=== PATIENT | male | born 1985 | race Caucasian/White ===

== ENCOUNTER 2016-12-12 03:05 | Emergency (ER) | payer BC ==
[2016-12-12 03:10] VITALS: BP 146/76; PULSE 105; RESP 20; TEMP 97.3
[2016-12-12] MEDS ORDERED: AMOXIC-POT CLAV 875-125MG 1 EACH TAB PO STA (03:16)
[2016-12-12] MEDS ORDERED: predniSONE 50 MG TAB PO STA (03:16)
--- NOTE | 2016-12-12 03:17 | ED ---
ENT HPI - General Chief complaint: ENT Stated complaint: VINICIO Time Seen by Provider: 12/12/16 03:10 Source: patient, RN notes reviewed Mode of arrival: ambulatory - History of Present Illness Initial comments: This a 31-year-old male presents emergency Department with chief complaint of chest swollen uvula. Patient states she's had this in the past. He states actually happened a few months ago. Patient states it went away but has returned last 24 hours. Patient denies any difficulty swallowing typically bleeding states it is sore. Patient's had no fever or chills he knows about. He states he has felt hot . Patient denies any headache, dizziness, chest pain , shortness breath, neck pain, nausea vomiting diarrhea constipation. Patient does use tobacco. - Related Data Home Medications Medication Instructions Recorded Confirmed Hydrochlorothiazide 25 mg PO DAILY 07/19/15 07/19/15 [Hydrochlorothiazide] Ibuprofen [Motrin] 200 mg PO DAILY PRN 07/19/15 07/19/15 Previous Rx's Medication Instructions Recorded Albuterol Inhaler [Ventolin Hfa 1 - 2 puff INHALATION Q4-6H PRN #1 07/19/15 Inhaler] inhaler Azithromycin [Zithromax] 250 mg PO DIRECTED #6 tab 07/19/15 predniSONE 50 mg PO DAILY #5 tab 07/19/15 Amoxicillin/Potassium Clav 1 tab PO Q12HR #20 tab 12/12/16 [Augmentin 875-125 Tablet] predniSONE 50 mg PO DAILY #5 tab 12/12/16 Allergies Allergy/AdvReac Type Severity Reaction Status Date / Time No Known Allergies Allergy Verified 07/19/15 20:04 Review of Systems ROS Statement: Those systems with pertinent positive or pertinent negative responses have been documented in the HPI. ROS Other: All systems not noted in ROS Statement are negative. Past Medical History Past Medical History: No Reported History History of Any Multi-Drug Resistant Organisms: None Reported Past Surgical History: No Surgical Hx Reported Past Psychological History: No Psychological Hx Reported Smoking Status: Current every day smoker Past Alcohol Use History: Occasional Past Drug Use History: None Reported General Exam General appearance: alert, in no apparent distress Head exam: Present: atraumatic, normocephalic, normal inspection Eye exam: Present: normal appearance, PERRL, EOMI. Absent: scleral icterus, conjunctival injection, periorbital swelling ENT exam: Present: mucous membranes moist, TM's normal bilaterally, normal external ear exam. Absent: normal oropharynx (There is erythema and swelling of the uvula patient is swallowing secretions well) Neck exam: Present: normal inspection, full ROM. Absent: tenderness, meningismus, lymphadenopathy Respiratory exam: Present: normal lung sounds bilaterally. Absent: respiratory distress, wheezes, rales, rhonchi, stridor Cardiovascular Exam: Present: regular rate, normal rhythm, normal heart sounds. Absent: systolic murmur, diastolic murmur, rubs, gallop, clicks Neurological exam: Present: alert, oriented X3, CN II-XII intact Course Vital Signs 12/12/16 03:08 Temperature 97.3 F L Pulse Rate 105 H Respiratory 20 Rate Blood Pressure 146/76 O2 Sat by Pulse 99 Oximetry Medical Decision Making - Medical Decision Making 31-year-old male present emergency department for swollen uvula. Patient be treated for uvulitis with Augmentin and prednisone. This may be infectious versus allergen. Patient is advised that needs follow-up with ENT secondary to recurrent uvulitis. We discussed that tobacco use can cause cancerous problems in that he needs to have further evaluation. I did chief counsel detailing 3 minutes regarding smoking cessation. Disposition Clinical Impression: Uvulitis Disposition: HOME SELF-CARE Condition: Stable Instructions: Uvulitis (ED) Additional Instructions: Please return to the Emergency Department if symptoms worsen or any other concerns. Prescriptions: Amoxicillin/Potassium Clav [Augmentin 875-125 Tablet] 1 tab PO Q12HR #20 tab predniSONE 50 mg PO DAILY #5 tab Referrals: Kiki Montes MD [Primary Care Provider] - 1-2 days Josse Barth MD [STAFF PHYSICIAN] - 1-2 days Time of Disposition: :17
== END 2016-12-12 03:31 | disposition home or self-care (01) ==
LOC: EC 03:05
DX: K12.2 Cellulitis and abscess of mouth (principal); F17.200 Nicotine dependence, unspecified, uncomplicated; Z79.899 Other long term (current) drug therapy
CPT/HCPCS: 99284; J7512

== ENCOUNTER → 2016-12-27 | Outpatient (CLI) | payer BC ==
[2016-12-27 19:53] LABS: ALT 90 U/L (21-72); AST 75 U/L (17-59); Alkaline Phosphatase 107 U/L (38-126); Anion Gap 11 mmol/L; Blood Urea Nitrogen 15 mg/dL (9-20); Calcium 9.9 mg/dL (8.4-10.2); Carbon Dioxide 24 mmol/L (22-30); Chloride 106 mmol/L (98-107); Glucose 78 mg/dL (74-99); Non-African American GFR(MDRD) >60 (>60 ml/min/1.73 sqM); Potassium 4.2 mmol/L (3.5-5.1); Sodium 141 mmol/L (137-145); Total Bilirubin 0.4 mg/dL (0.2-1.3); Total Protein 7.5 g/dL (6.3-8.2)
== END ==
LOC: MMGSC 15:46
PROVIDERS: ATTEND Family Medicine
DX: Z51.81 Encounter for therapeutic drug level monitoring (principal)
CPT/HCPCS: 36415; 80053

== ENCOUNTER 2017-07-23 19:21 | Emergency (ER) | payer BC ==
[2017-07-23] MEDS ORDERED: SODIUM CHLORIDE 0.9% 1,000 ML IV ONE (19:42)
[2017-07-23 19:53] LABS: Basophils # (A) 0.1 k/uL (0-0.2); Basophils % (A) 1 %; Eosinophils # (A) 0.7 k/uL (0-0.7); Eosinophils % (A) 5 %; HCT 43.5 % (39.0-53.0); HGB 15.1 gm/dL (13.0-17.5); Lymphocytes # (A) 4.6 k/uL (1.0-4.8); Lymphocytes % (A) 31 %; MCH 29.4 pg (25.0-35.0); MCHC 34.6 g/dL (31.0-37.0); Mean Platelet Volume 6.9; Monocytes # (A) 0.6 k/uL (0-1.0); Monocytes % (A) 4 %; Neutrophils # (A) 8.3 k/uL (1.3-7.7); Neutrophils % (A) 56 %; Platelet Count 318 k/uL (150-450); RBC 5.12 m/uL (4.30-5.90); RDW 13.3 % (11.5-15.5); WBC 14.7 k/uL (3.8-10.6)
[2017-07-23 20:05] LABS: ALT 83 U/L (21-72); AST 36 U/L (17-59); Albumin 4.7 g/dL (3.5-5.0); Alkaline Phosphatase 107 U/L (38-126); Anion Gap 15 mmol/L; Blood Urea Nitrogen 17 mg/dL (9-20); Calcium 9.6 mg/dL (8.4-10.2); Carbon Dioxide 26 mmol/L (22-30); Chloride 102 mmol/L (98-107); Glucose 110 mg/dL (74-99); Potassium 3.7 mmol/L (3.5-5.1); Sodium 143 mmol/L (137-145); Total Bilirubin 0.4 mg/dL (0.2-1.3); Total Protein 7.4 g/dL (6.3-8.2)
--- NOTE | 2017-07-23 20:05 | XR ---
EXAMINATION TYPE: XR chest 2V DATE OF EXAM: 07/23/2017 COMPARISON: 07/19/2015 HISTORY: Hypertension TECHNIQUE: Frontal and lateral views of the chest are obtained. FINDINGS: Heart and mediastinum are normal. There is coarsening of interstitial pulmonary markings. There is no pulmonary consolidation. There is no pleural effusion. IMPRESSION: Coarse lung markings and relatively poor inspiration. This is a change compared to old e xam. Normal heart.
[2017-07-23 20:07] LABS: D-Dimer 0.33 mg/L FEU (<0.60); Partial Thromboplastin Time 23.3 sec (22.0-30.0)
[2017-07-23] MEDS ORDERED: LORazepam 1 MG TAB PO STA (20:24)
[2017-07-23 20:33] LABS: Creatine Kinase MB 0.5 ng/mL (0.0-2.4); Troponin I <0.012 ng/mL (0.000-0.034)
[2017-07-23] MEDS ORDERED: amLODIPine 5 MG TAB PO STA (21:10)
[2017-07-23 21:11] VITALS: BP 161/84; PULSE 106; RESP 18
--- NOTE | 2017-07-23 21:16 | ED ---
General Adult HPI - General Chief complaint: Chest Pain Stated complaint: HTN Time Seen by Provider: 07/23/17 19:28 Source: patient Mode of arrival: ambulatory Limitations: no limitations - History of Present Illness Initial comments: This is a 31-year-old male who presents emergency department for hypertension, dizziness, and left arm pain. He states that the symptoms been going on for the last couple of days. He states he's had mostly the lightheadedness and high blood pressure for the last couple of days. The left-sided arm pain started around 5:00 this evening. He states that the arm pain does radiate into her chest occasionally. He states is mostly in his left arm however. He states he does not have any direct chest pain. No shortness of breath. There is no pleuritic nature to the pain. He states that the dizziness feels more like a lightheadedness when he stands up or rolls over. He denies any spinning sensation. He states that he is supposed to be on amlodipine/been Nasser pro- medications however has not been taking this. He states that he did have a reaction to taking the medication a couple of days ago and woke up with throat swelling. He denies any lower extremity edema or swelling. 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 No history of PE or DVT. No other acute complaints. - Related Data Home Medications Medication Instructions Recorded Confirmed Aspirin 325 mg PO DAILY PRN 07/23/17 07/23/17 Allergies Allergy/AdvReac Type Severity Reaction Status Date / Time benazepril [From Lotrel] Allergy Swelling Verified 07/23/17 19:54 Review of Systems ROS Statement: Those systems with pertinent positive or pertinent negative responses have been documented in the HPI. ROS Other: All systems not noted in ROS Statement are negative. Past Medical History Past Medical History: Hypertension History of Any Multi-Drug Resistant Organisms: None Reported Past Surgical History: No Surgical Hx Reported Past Psychological History: No Psychological Hx Reported Smoking Status: Current every day smoker Past Alcohol Use History: Occasional Past Drug Use History: None Reported General Exam - General Exam Comments Initial Comments: Constitutional: Awake alert Appears comfortable Head: Normocephalic atraumatic Eyes: no conjunctival injection No scleral icterus EOMI Neck: No JVD Supple Heart: Tachycardia normal S1-S2 no murmurs Lungs: Clear to auscultation bilaterally No wheezing No rales Abdomen: Soft nondistended nontender Extremities: Non edematous DP pulses intact Radial pulses intact Neuro: A&Ox3 No focal neurologic deficits Psych: Appropriate mood and affect Limitations: no limitations Course Vital Signs 07/23/17 07/23/17 07/23/17 19:22 19:41 20:16 Temperature 98.0 F 99.3 F Pulse Rate 126 H 117 H 120 H Respiratory 18 20 20 Rate Blood Pressure 183/100 175/73 159/71 O2 Sat by Pulse 100 100 99 Oximetry 07/23/17 07/23/17 21:09 21:17 Temperature 98.6 F Pulse Rate 106 H Respiratory 18 Rate Blood Pressure 161/84 O2 Sat by Pulse 98 Oximetry EKG Findings - EKG Comments: EKG Findings:: EKG showing sinus tachycardia with a rate of 114. No abnormal ST 7 changes or T-wave inversions. QTC is 474. Other intervals normal. There may be an incomplete right bundle-branch block present. Medical Decision Making - Medical Decision Making Is a 31-year-old came in for left arm pain, lightheadedness, and hypertension. The patient was monitored in the emergency department and blood pressure came down on its own. The patient had blood work performed that had a negative troponin and d-dimer. I suspect that some of his symptoms may be related to anxiety and given a dose of lorazepam with great improvement in his symptoms. The patient felt much improved after this area I did give him 1 dose of amlodipine. I suspect that he may be having angioedema from the benazepril that he's had this multiple times in the past. At this time going to send the patient home. He has an appointment with his doctor tomorrow. Told to inquire about additional blood pressure medication if required. Can return if he has any worsening symptoms. All questions answered. - Lab Data Result diagrams: 07/23/17 19:40 07/23/17 19:40 Lab Results 07/23/17 07/23/17 07/23/17 Range/Units 19:40 19:40 19:40 WBC 14.7 H (3.8-10.6) k/uL RBC 5.12 (4.30-5.90) m/uL Hgb 15.1 (13.0-17.5) gm/dL Hct 43.5 (39.0-53.0) % MCV 85.0 (80.0-100.0) fL MCH 29.4 (25.0-35.0) pg MCHC 34.6 (31.0-37.0) g/dL RDW 13.3 (11.5-15.5) % Plt Count 318 (150-450) k/uL Neutrophils % 56 % Lymphocytes % 31 % Monocytes % 4 % Eosinophils % 5 % Basophils % 1 % Neutrophils # 8.3 H (1.3-7.7) k/uL Lymphocytes # 4.6 (1.0-4.8) k/uL Monocytes # 0.6 (0-1.0) k/uL Eosinophils # 0.7 (0-0.7) k/uL Basophils # 0.1 (0-0.2) k/uL PT (9.0-12.0) sec INR (<1.2) APTT (22.0-30.0) sec D-Dimer (<0.60) mg/L FEU Sodium 143 (137-145) mmol/L Potassium 3.7 (3.5-5.1) mmol/L Chloride 102 (98-107) mmol/L Carbon Dioxide 26 (22-30) mmol/L Anion Gap 15 mmol/L BUN 17 (9-20) mg/dL Creatinine 0.91 (0.66-1.25) mg/dL Est GFR (CKD-EPI)AfAm >90 (>60 ml/min/1.73 sqM) Est GFR (CKD-EPI)NonAf >90 (>60 ml/min/1.73 sqM) Glucose 110 H (74-99) mg/dL Calcium 9.6 (8.4-10.2) mg/dL Total Bilirubin 0.4 (0.2-1.3) mg/dL AST 36 (17-59) U/L ALT 83 H (21-72) U/L Alkaline Phosphatase 107 (38-126) U/L CK-MB (CK-2) 0.5 (0.0-2.4) ng/mL Troponin I <0.012 (0.000-0.034) ng/mL Total Protein 7.4 (6.3-8.2) g/dL Albumin 4.7 (3.5-5.0) g/dL 07/23/17 Range/Units 19:40 WBC (3.8-10.6) k/uL RBC (4.30-5.90) m/uL Hgb (13.0-17.5) gm/dL Hct (39.0-53.0) % MCV (80.0-100.0) fL MCH (25.0-35.0) pg MCHC (31.0-37.0) g/dL RDW (11.5-15.5) % Plt Count (150-450) k/uL Neutrophils % % Lymphocytes % % Monocytes % % Eosinophils % % Basophils % % Neutrophils # (1.3-7.7) k/uL Lymphocytes # (1.0-4.8) k/uL Monocytes # (0-1.0) k/uL Eosinophils # (0-0.7) k/uL Basophils # (0-0.2) k/uL PT 10.0 (9.0-12.0) sec INR 1.0 (<1.2) APTT 23.3 (22.0-30.0) sec D-Dimer 0.33 (<0.60) mg/L FEU Sodium (137-145) mmol/L Potassium (3.5-5.1) mmol/L Chloride (98-107) mmol/L Carbon Dioxide (22-30) mmol/L Anion Gap mmol/L BUN (9-20) mg/dL Creatinine (0.66-1.25) mg/dL Est GFR (CKD-EPI)AfAm (>60 ml/min/1.73 sqM) Est GFR (CKD-EPI)NonAf (>60 ml/min/1.73 sqM) Glucose (74-99) mg/dL Calcium (8.4-10.2) mg/dL Total Bilirubin (0.2-1.3) mg/dL AST (17-59) U/L ALT (21-72) U/L Alkaline Phosphatase (38-126) U/L CK-MB (CK-2) (0.0-2.4) ng/mL Troponin I (0.000-0.034) ng/mL Total Protein (6.3-8.2) g/dL Albumin (3.5-5.0) g/dL Disposition Clinical Impression: Arm pain, Palpitations Disposition: HOME SELF-CARE Condition: Stable Instructions: Chest Pain (ED), Angioedema (ED) Additional Instructions: Follow up with your primary doctor tomorrow and have BP rechecked. You were given Amlodipine 5mg tonight. I feel that you have angioedema from benazepril and should avoid HERMILA inhibitors. You may require increased dosing or a different medication for better blood pressure control. Come back for any worsening chest pains. Is patient prescribed a controlled substance at d/c from ED?: No Referrals: Kiki Montes MD [Primary Care Provider] - 1-2 days
[2017-07-23 21:17] VITALS: TEMP 98.6
== END 2017-07-23 21:24 | disposition home or self-care (01) ==
LOC: EC 19:21
DX: R00.2 Palpitations (principal); M79.602 Pain in left arm; R42 Dizziness and giddiness; R07.9 Chest pain, unspecified; I10 Essential (primary) hypertension; F17.200 Nicotine dependence, unspecified, uncomplicated; Z88.8 Allergy status to other drugs, medicaments and biological substances
CPT/HCPCS: 36415; 71046; 80053; 82553; 84484; 85025; 85379; 85610; 85730; 93005; 96360; 99285

== ENCOUNTER → 2017-07-24 | Outpatient (CLI) | payer BC ==
[2017-07-24 18:39] LABS: Basophils % (A) 0 %; Eosinophils # (A) 0.6 k/uL (0-0.7); Eosinophils % (A) 6 %; HCT 45.2 % (39.0-53.0); HGB 14.9 gm/dL (13.0-17.5); Lymphocytes % (A) 27 %; MCH 28.4 pg (25.0-35.0); Mean Platelet Volume 7.9; Monocytes # (A) 0.6 k/uL (0-1.0); Monocytes % (A) 5 %; Neutrophils # (A) 6.7 k/uL (1.3-7.7); Neutrophils % (A) 60 %; Platelet Count 315 k/uL (150-450); RBC 5.26 m/uL (4.30-5.90); RDW 13.5 % (11.5-15.5); WBC 11.1 k/uL (3.8-10.6)
== END | disposition home or self-care (01) ==
LOC: MMGSC 12:03
PROVIDERS: ATTEND Family Medicine
DX: R79.9 Abnormal finding of blood chemistry, unspecified (principal)
CPT/HCPCS: 36415; 85025

== ENCOUNTER → 2017-08-16 | Outpatient (CLI) | payer BC ==
--- NOTE | 2017-08-17 07:07 | US ---
EXAMINATION TYPE: US kidneys/renal and bladder DATE OF EXAM: 08/16/2017 COMPARISON: NONE CLINICAL HISTORY: R31.9 hematuria. Hematuria, pt states no known prior renal issues EXAM MEASUREMENTS: Right Kidney: 11.5 x 5.3 x 5.7 cm Left Kidney: 10.9 x 5.6 x 5.0 cm Larger pt body habitus, difficult scan Right Kidney: Visualized portions appeared wnl. No hydronephrosis or nephrolithiasis. Cortical medull justine differentiation is maintained. Left Kidney: Visualized portions appeared wnl No hydronephrosis or nephrolithiasis. Cortical medul fay differentiation is maintained. Bladder: wnl Bilateral Jets seen: No There is no evidence for hydronephrosis at this point in time. No nephrolithiasis is seen. No tariq s are identified. The urinary bladder is anechoic. Bilateral ureteral jets are seen. IMPRESSION: No hydronephrosis or nephrolithiasis. No sonographic evidence of medical renal disease. Urinary bladd er is unremarkable. If there is further clinical concern in the setting of hematuria CT urogram could be performed.
== END | disposition home or self-care (01) ==
LOC: RADUSWWP 16:18
PROVIDERS: ATTEND Family Medicine
DX: R31.9 Hematuria, unspecified (principal)
CPT/HCPCS: 76770

== ENCOUNTER 2018-05-05 12:19 | Emergency (ER) | payer BC ==
[2018-05-05 12:24] VITALS: TEMP 98.4
[2018-05-05] MEDS ORDERED: SODIUM CHLORIDE 0.9% 1,000 ML IV STA (12:44)
[2018-05-05] MEDS ORDERED: SODIUM CHLORIDE 0.9% 500 ML 500 ML IV STA (12:44)
[2018-05-05] MEDS ORDERED: METOPROLOL SUCCINATE (ER) 25 MG TAB.ER.24H PO STA (12:45)
--- NOTE | 2018-05-05 12:50 | ED ---
General Adult HPI - General Chief complaint: Recheck/Abnormal Lab/Rx Stated complaint: High BP Time Seen by Provider: 05/05/18 12:30 Source: patient, RN notes reviewed, old records reviewed Mode of arrival: ambulatory Limitations: no limitations - History of Present Illness Initial comments: 32-year-old male presents for evaluation of hypertension and not feeling well. Patient states he just feels "weird". Denies headache. Denies vision changes. Denies focal numbness or weakness. He does report bilateral foot tingling. He checked his blood pressure at home and it was significantly elevated and he presents to emergency department for evaluation. Patient denies nausea vomiting. Denies fever or chills. Denies cough or dyspnea. He has history of hypertension, has been prescribed both Norvasc and Toprol-XL he has not been taking his medications for the past one month. He states he had heard that Norvasc cause cancer and discontinued this medication without his doctor's noticed. Denies chest pain. Denies lower extremity pain or swelling. Denies abdominal pain. Patient is a current smoker, denies alcohol use. - Related Data Home Medications Medication Instructions Recorded Confirmed Naproxen Sodium [Aleve] 440 mg PO DAILY PRN 05/05/18 05/05/18 amLODIPine [Norvasc] 5 mg PO DAILY 05/05/18 05/05/18 Previous Rx's Medication Instructions Recorded Doxycycline [Vibramycin] 100 mg PO BID #14 cap 05/05/18 Metoprolol Succinate (ER) [Toprol 25 mg PO DAILY #30 tab 05/05/18 Xl] Allergies Allergy/AdvReac Type Severity Reaction Status Date / Time HERMILA Inhibitors Allergy Swelling Verified 05/05/18 12:49 benazepril [From Lotrel] Allergy Swelling Verified 05/05/18 12:49 Review of Systems ROS Statement: Those systems with pertinent positive or pertinent negative responses have been documented in the HPI. ROS Other: All systems not noted in ROS Statement are negative. Past Medical History Past Medical History: Hypertension History of Any Multi-Drug Resistant Organisms: None Reported Past Surgical History: No Surgical Hx Reported Past Psychological History: No Psychological Hx Reported Smoking Status: Current every day smoker Past Alcohol Use History: None Reported Past Drug Use History: None Reported General Exam Limitations: no limitations General appearance: alert, in no apparent distress Head exam: Present: atraumatic, normocephalic Eye exam: Present: normal appearance, PERRL, EOMI ENT exam: Present: mucous membranes dry Neck exam: Present: normal inspection. Absent: tenderness, meningismus Respiratory exam: Present: normal lung sounds bilaterally. Absent: respiratory distress, wheezes Cardiovascular Exam: Present: normal rhythm, tachycardia GI/Abdominal exam: Present: soft. Absent: distended, tenderness, guarding Extremities exam: Present: normal inspection, normal capillary refill. Absent: pedal edema Neurological exam: Present: alert, oriented X3, CN II-XII intact, normal gait. Absent: motor sensory deficit Psychiatric exam: Present: normal affect, normal mood Skin exam: Present: warm, dry, intact. Absent: cyanosis, diaphoretic Course Vital Signs 05/05/18 05/05/18 05/05/18 12:21 13:22 14:00 Temperature 98.4 F Pulse Rate 121 H 116 H 104 H Respiratory 20 18 Rate Blood Pressure 194/75 153/110 147/92 O2 Sat by Pulse 98 98 Oximetry - Reevaluation(s) Reevaluation #1: 05/05/18 14:35 Patient reevaluated, resting comfortably, vital signs significantly improved, patient feeling normal EKG Findings - EKG Comments: EKG Findings:: EKG: Sinus tachycardia, nonspecific conduction delay, rate of 112 , NH interval 148, QRS duration 118, QTC 477, EKG unchanged compared to previous in July 2017. Medical Decision Making - Medical Decision Making 32-year-old male presenting for evaluation of hypertension, not taking prescribed antihypertensive medications. Patient denies headache, denies focal numbness or weakness, denies chest pain or abdominal pain. I did reevaluate the patient after chest x-ray indicating concern for right infrahilar infiltrate. Patient does endorse intermittent productive cough over the past several weeks. No fever or dyspnea. Patient has normal white blood cell count , stable hemoglobin, d-dimer is negative, normal electrolytes. Troponin negative. Patient will be restarted on his previously prescribed antihypertensive medications, prescribed antibiotics to cover community acquired pneumonia. - Lab Data Result diagrams: 05/05/18 13:08 05/05/18 13:08 Lab Results 05/05/18 05/05/18 05/05/18 Range/Units 13:08 13:08 13:08 WBC 9.6 (3.8-10.6) k/uL RBC 5.53 (4.30-5.90) m/uL Hgb 15.7 (13.0-17.5) gm/dL Hct 45.8 (39.0-53.0) % MCV 82.9 (80.0-100.0) fL MCH 28.3 (25.0-35.0) pg MCHC 34.2 (31.0-37.0) g/dL RDW 13.5 (11.5-15.5) % Plt Count 280 (150-450) k/uL Neutrophils % 62 % Lymphocytes % 26 % Monocytes % 6 % Eosinophils % 4 % Basophils % 1 % Neutrophils # 6.0 (1.3-7.7) k/uL Lymphocytes # 2.5 (1.0-4.8) k/uL Monocytes # 0.6 (0-1.0) k/uL Eosinophils # 0.3 (0-0.7) k/uL Basophils # 0.1 (0-0.2) k/uL PT (9.0-12.0) sec INR (<1.2) APTT (22.0-30.0) sec D-Dimer (<0.60) mg/L FEU Sodium 136 L (137-145) mmol/L Potassium 4.2 (3.5-5.1) mmol/L Chloride 103 (98-107) mmol/L Carbon Dioxide 25 (22-30) mmol/L Anion Gap 8 mmol/L BUN 17 (9-20) mg/dL Creatinine 0.88 (0.66-1.25) mg/dL Est GFR (CKD-EPI)AfAm >90 (>60 ml/min/1.73 sqM) Est GFR (CKD-EPI)NonAf >90 (>60 ml/min/1.73 sqM) Glucose 102 H (74-99) mg/dL Calcium 9.5 (8.4-10.2) mg/dL Magnesium 1.7 (1.6-2.3) mg/dL Total Bilirubin 0.5 (0.2-1.3) mg/dL AST 40 (17-59) U/L ALT 69 (21-72) U/L Alkaline Phosphatase 118 (38-126) U/L Total Creatine Kinase 131 (55-170) U/L CK-MB (CK-2) 0.5 (0.0-2.4) ng/mL CK-MB (CK-2) Rel Index 0.4 Troponin I <0.012 (0.000-0.034) ng/mL Total Protein 7.4 (6.3-8.2) g/dL Albumin 4.4 (3.5-5.0) g/dL 05/05/18 Range/Units 13:08 WBC (3.8-10.6) k/uL RBC (4.30-5.90) m/uL Hgb (13.0-17.5) gm/dL Hct (39.0-53.0) % MCV (80.0-100.0) fL MCH (25.0-35.0) pg MCHC (31.0-37.0) g/dL RDW (11.5-15.5) % Plt Count (150-450) k/uL Neutrophils % % Lymphocytes % % Monocytes % % Eosinophils % % Basophils % % Neutrophils # (1.3-7.7) k/uL Lymphocytes # (1.0-4.8) k/uL Monocytes # (0-1.0) k/uL Eosinophils # (0-0.7) k/uL Basophils # (0-0.2) k/uL PT 10.5 (9.0-12.0) sec INR 1.0 (<1.2) APTT 22.7 (22.0-30.0) sec D-Dimer 0.27 (<0.60) mg/L FEU Sodium (137-145) mmol/L Potassium (3.5-5.1) mmol/L Chloride (98-107) mmol/L Carbon Dioxide (22-30) mmol/L Anion Gap mmol/L BUN (9-20) mg/dL Creatinine (0.66-1.25) mg/dL Est GFR (CKD-EPI)AfAm (>60 ml/min/1.73 sqM) Est GFR (CKD-EPI)NonAf (>60 ml/min/1.73 sqM) Glucose (74-99) mg/dL Calcium (8.4-10.2) mg/dL Magnesium (1.6-2.3) mg/dL Total Bilirubin (0.2-1.3) mg/dL AST (17-59) U/L ALT (21-72) U/L Alkaline Phosphatase (38-126) U/L Total Creatine Kinase (55-170) U/L CK-MB (CK-2) (0.0-2.4) ng/mL CK-MB (CK-2) Rel Index Troponin I (0.000-0.034) ng/mL Total Protein (6.3-8.2) g/dL Albumin (3.5-5.0) g/dL Disposition Clinical Impression: Hypertension, Pneumonia Disposition: HOME SELF-CARE Condition: Good Instructions (If sedation given, give patient instructions): Pneumonia (ED), Hypertension (ED) Prescriptions: Doxycycline [Vibramycin] 100 mg PO BID #14 cap Metoprolol Succinate (ER) [Toprol Xl] 25 mg PO DAILY #30 tab Is patient prescribed a controlled substance at d/c from ED?: No Referrals: Kiki Montes MD [Primary Care Provider] - 1-2 days Time of Disposition: 14:40
[2018-05-05 13:23] VITALS: RESP 18
--- NOTE | 2018-05-05 13:40 | XR ---
EXAMINATION TYPE: XR chest 2V DATE OF EXAM: 05/05/2018 COMPARISON: 07/23/2017 HISTORY: Chest pain TECHNIQUE: Frontal and lateral views of the chest are obtained. FINDINGS: Increased density right infrahilar region may reflect developing infiltrate. Correlate clinically. No evidence for pneumothorax. No pleural effusion. The cardiac silhouette size is within normal limits. The osseous structures are grossly intact. IMPRESSION: 1. Increased density right infrahilar region may reflect developing infiltrate. Correlate clinically .
[2018-05-05 13:45] LABS: Basophils # (A) 0.1 k/uL (0-0.2); Basophils % (A) 1 %; Eosinophils # (A) 0.3 k/uL (0-0.7); Eosinophils % (A) 4 %; HCT 45.8 % (39.0-53.0); HGB 15.7 gm/dL (13.0-17.5); Lymphocytes # (A) 2.5 k/uL (1.0-4.8); Lymphocytes % (A) 26 %; MCH 28.3 pg (25.0-35.0); MCHC 34.2 g/dL (31.0-37.0); MCV 82.9 fL (80.0-100.0); Mean Platelet Volume 6.5; Monocytes # (A) 0.6 k/uL (0-1.0); Monocytes % (A) 6 %; Neutrophils % (A) 62 %; Platelet Count 280 k/uL (150-450); RBC 5.53 m/uL (4.30-5.90); RDW 13.5 % (11.5-15.5); WBC 9.6 k/uL (3.8-10.6)
[2018-05-05 13:50] LABS: ALT 69 U/L (21-72); AST 40 U/L (17-59); Albumin 4.4 g/dL (3.5-5.0); Alkaline Phosphatase 118 U/L (38-126); Anion Gap 8 mmol/L; Blood Urea Nitrogen 17 mg/dL (9-20); Calcium 9.5 mg/dL (8.4-10.2); Carbon Dioxide 25 mmol/L (22-30); Chloride 103 mmol/L (98-107); Glucose 102 mg/dL (74-99); Magnesium 1.7 mg/dL (1.6-2.3); Potassium 4.2 mmol/L (3.5-5.1); Sodium 136 mmol/L (137-145); Total Bilirubin 0.5 mg/dL (0.2-1.3); Total Protein 7.4 g/dL (6.3-8.2)
[2018-05-05 13:57] LABS: D-Dimer 0.27 mg/L FEU (<0.60); Partial Thromboplastin Time 22.7 sec (22.0-30.0); Prothrombin Time 10.5 sec (9.0-12.0)
[2018-05-05 14:01] LABS: Creatine Kinase 131 U/L (55-170)
[2018-05-05 14:15] LABS: Creatine Kinase MB 0.5 ng/mL (0.0-2.4); Troponin I <0.012 ng/mL (0.000-0.034)
[2018-05-05 14:52] VITALS: BP 132/89; PULSE 100
== END 2018-05-05 14:49 | disposition home or self-care (01) ==
LOC: EC 12:19
DX: I10 Essential (primary) hypertension (principal); J18.9 Pneumonia, unspecified organism; R00.0 Tachycardia, unspecified; R20.2 Paresthesia of skin; F17.200 Nicotine dependence, unspecified, uncomplicated; Z88.8 Allergy status to other drugs, medicaments and biological substances; Z79.899 Other long term (current) drug therapy
CPT/HCPCS: 36415; 71046; 80053; 82550; 82553; 83735; 84484; 85025; 85379; 85610; 85730; 93005; 99284

== ENCOUNTER 2018-05-05 18:23 | Emergency (ER) | payer BC ==
[2018-05-05] MEDS ORDERED: SODIUM CHLORIDE 0.9% 500 ML 500 ML IV ONE ×2 (18:59→19:47)
[2018-05-05 19:27] LABS: Basophils # (A) 0.1 k/uL (0-0.2); Basophils % (A) 1 %; Eosinophils # (A) 0.3 k/uL (0-0.7); Eosinophils % (A) 3 %; HCT 44.9 % (39.0-53.0); Lymphocytes # (A) 2.4 k/uL (1.0-4.8); Lymphocytes % (A) 20 %; MCH 28.5 pg (25.0-35.0); MCHC 33.4 g/dL (31.0-37.0); MCV 85.2 fL (80.0-100.0); Monocytes # (A) 0.6 k/uL (0-1.0); Monocytes % (A) 5 %; Neutrophils # (A) 8.3 k/uL (1.3-7.7); Neutrophils % (A) 70 %; Platelet Count 273 k/uL (150-450); RBC 5.27 m/uL (4.30-5.90); RDW 13.5 % (11.5-15.5); WBC 11.8 k/uL (3.8-10.6)
[2018-05-05 19:38] LABS: ALT 64 U/L (21-72); AST 39 U/L (17-59); Albumin 4.3 g/dL (3.5-5.0); Alkaline Phosphatase 99 U/L (38-126); Anion Gap 9 mmol/L; Blood Urea Nitrogen 16 mg/dL (9-20); Calcium 9.7 mg/dL (8.4-10.2); Carbon Dioxide 24 mmol/L (22-30); Chloride 104 mmol/L (98-107); Glucose 167 mg/dL (74-99); Magnesium 1.8 mg/dL (1.6-2.3); Potassium 4.3 mmol/L (3.5-5.1); Sodium 137 mmol/L (137-145); Total Bilirubin 0.4 mg/dL (0.2-1.3); Total Protein 7.2 g/dL (6.3-8.2)
[2018-05-05 19:43] LABS: Creatine Kinase 125 U/L (55-170)
[2018-05-05 19:44] LABS: Partial Thromboplastin Time 23.1 sec (22.0-30.0); Prothrombin Time 10.5 sec (9.0-12.0)
[2018-05-05] MEDS ORDERED: amLODIPine 5 MG TAB PO STA (19:47)
--- NOTE | 2018-05-05 19:52 | CT ---
EXAMINATION TYPE: CT brain wo con DATE OF EXAM: 05/05/2018 COMPARISON: None HISTORY: hypertensive CT DLP: 1105.4 mGycm. Automated Exposure Control for Dose Reduction was Utilized. TECHNIQUE: CT scan of the head is performed without contrast. FINDINGS: Ventricles of normal size. There is no mass effect nor midline shift. There is no sign of i ntracranial hemorrhage. Calvarium is intact. There is mucosal thickening in the right maxillary sinus . IMPRESSION: Small mucus retention cyst right maxillary sinus. Otherwise negative exam.
--- NOTE | 2018-05-05 19:54 | ED ---
General Adult HPI - General Chief complaint: Recheck/Abnormal Lab/Rx Stated complaint: Hypertensive Time Seen by Provider: 05/05/18 18:34 Source: patient, RN notes reviewed, old records reviewed Mode of arrival: ambulatory Limitations: no limitations - History of Present Illness Initial comments: 32-year-old male history of hypertension presents for reevaluation of hypertension, tachycardia. Patient is presenting for her second ER visit today for evaluation. Does report interval mild headache. He took Toprol-XL in the emergency Department on previous visit, no interval antihypertensive medications. Patient states he felt flushed at home, took his blood pressure, noted to be elevated as well as elevated heart rate. Denies chest pain. Denies focal numbness or weakness. Denies abdominal pain. Denies nausea vomiting or diarrhea. - Related Data Home Medications Medication Instructions Recorded Confirmed Naproxen Sodium [Aleve] 440 mg PO DAILY PRN 05/05/18 05/05/18 amLODIPine [Norvasc] 5 mg PO DAILY 05/05/18 05/05/18 Previous Rx's Medication Instructions Recorded Doxycycline [Vibramycin] 100 mg PO BID #14 cap 05/05/18 Metoprolol Succinate (ER) [Toprol 25 mg PO DAILY #30 tab 05/05/18 Xl] Allergies Allergy/AdvReac Type Severity Reaction Status Date / Time HERMILA Inhibitors Allergy Swelling Verified 05/05/18 19:29 benazepril [From Lotrel] Allergy Swelling Verified 05/05/18 19:29 Review of Systems ROS Statement: Those systems with pertinent positive or pertinent negative responses have been documented in the HPI. ROS Other: All systems not noted in ROS Statement are negative. Past Medical History Past Medical History: Hypertension History of Any Multi-Drug Resistant Organisms: None Reported Past Surgical History: No Surgical Hx Reported Past Psychological History: No Psychological Hx Reported Smoking Status: Current every day smoker Past Alcohol Use History: None Reported Past Drug Use History: None Reported General Exam Limitations: no limitations General appearance: alert, in no apparent distress Head exam: Present: atraumatic, normocephalic Eye exam: Present: normal appearance, PERRL, EOMI ENT exam: Present: normal exam Neck exam: Present: normal inspection. Absent: tenderness, meningismus Respiratory exam: Present: normal lung sounds bilaterally. Absent: respiratory distress, wheezes Cardiovascular Exam: Present: normal rhythm, tachycardia GI/Abdominal exam: Present: soft. Absent: distended, tenderness, guarding Extremities exam: Present: normal inspection. Absent: pedal edema, calf tenderness Neurological exam: Present: alert, oriented X3, CN II-XII intact. Absent: motor sensory deficit Psychiatric exam: Present: normal affect, normal mood Skin exam: Present: warm, dry, intact. Absent: diaphoretic Course Vital Signs 05/05/18 05/05/18 05/05/18 18:29 19:00 19:06 Temperature 98.5 F Pulse Rate 125 H 107 H Pulse Rate [ 110 H [employer] ] Respiratory 18 20 Rate Blood Pressure 175/74 163/84 O2 Sat by Pulse 100 96 Oximetry 05/05/18 05/05/18 19:55 20:46 Temperature Pulse Rate 106 H 104 H Pulse Rate [ [employer] ] Respiratory 16 20 Rate Blood Pressure 151/86 140/84 O2 Sat by Pulse 96 98 Oximetry EKG Findings - EKG Comments: EKG Findings:: EKG: Sinus tachycardia incomplete right bundle branch block, rate of 110, MT interval 170, QRS duration 116, QTC 484 Medical Decision Making - Medical Decision Making Patient reevaluated for hypertension. Other than tachycardia and hypotension, patient is well-appearing, nonfocal neurologic exam, patient has repeat CBC, repeat CMP, troponin all within normal limits, TSH is obtained, which is 3.[address] is normal[address] Head CT is obtained which is negative for intracranial hemorrhage, mass effect, no acute findings. Patient's vital signs improved with Norvasc which is his home medication and IV hydration. He will continue hydration at home. He is instructed on weight loss, he is instructed to abstain from tobacco use. Patient does admit his been 2 deaths in the family over the past week and he may have some degree of anxiety. This may be contributing to his symptoms. He will follow-up with his primary care physician. - Lab Data Result diagrams: 05/05/18 19:00 05/05/18 19:00 Lab Results 05/05/18 05/05/18 05/05/18 Range/Units 19:00 19:00 19:00 WBC 11.8 H (3.8-10.6) k/uL RBC 5.27 (4.30-5.90) m/uL Hgb 15.0 (13.0-17.5) gm/dL Hct 44.9 (39.0-53.0) % MCV 85.2 (80.0-100.0) fL MCH 28.5 (25.0-35.0) pg MCHC 33.4 (31.0-37.0) g/dL RDW 13.5 (11.5-15.5) % Plt Count 273 (150-450) k/uL Neutrophils % 70 % Lymphocytes % 20 % Monocytes % 5 % Eosinophils % 3 % Basophils % 1 % Neutrophils # 8.3 H (1.3-7.7) k/uL Lymphocytes # 2.4 (1.0-4.8) k/uL Monocytes # 0.6 (0-1.0) k/uL Eosinophils # 0.3 (0-0.7) k/uL Basophils # 0.1 (0-0.2) k/uL PT (9.0-12.0) sec INR (<1.2) APTT (22.0-30.0) sec Sodium 137 (137-145) mmol/L Potassium 4.3 (3.5-5.1) mmol/L Chloride 104 (98-107) mmol/L Carbon Dioxide 24 (22-30) mmol/L Anion Gap 9 mmol/L BUN 16 (9-20) mg/dL Creatinine 0.83 (0.66-1.25) mg/dL Est GFR (CKD-EPI)AfAm >90 (>60 ml/min/1.73 sqM) Est GFR (CKD-EPI)NonAf >90 (>60 ml/min/1.73 sqM) Glucose 167 H (74-99) mg/dL Calcium 9.7 (8.4-10.2) mg/dL Magnesium 1.8 (1.6-2.3) mg/dL Total Bilirubin 0.4 (0.2-1.3) mg/dL AST 39 (17-59) U/L ALT 64 (21-72) U/L Alkaline Phosphatase 99 (38-126) U/L Total Creatine Kinase 125 (55-170) U/L CK-MB (CK-2) 0.4 (0.0-2.4) ng/mL CK-MB (CK-2) Rel Index 0.3 Troponin I <0.012 (0.000-0.034) ng/mL NT-Pro-B Natriuret Pep pg/mL Total Protein 7.2 (6.3-8.2) g/dL Albumin 4.3 (3.5-5.0) g/dL TSH 3.210 (0.465-4.680) mIU/L 05/05/18 05/05/18 Range/Units 19:00 19:00 WBC (3.8-10.6) k/uL RBC (4.30-5.90) m/uL Hgb (13.0-17.5) gm/dL Hct (39.0-53.0) % MCV (80.0-100.0) fL MCH (25.0-35.0) pg MCHC (31.0-37.0) g/dL RDW (11.5-15.5) % Plt Count (150-450) k/uL Neutrophils % % Lymphocytes % % Monocytes % % Eosinophils % % Basophils % % Neutrophils # (1.3-7.7) k/uL Lymphocytes # (1.0-4.8) k/uL Monocytes # (0-1.0) k/uL Eosinophils # (0-0.7) k/uL Basophils # (0-0.2) k/uL PT 10.5 (9.0-12.0) sec INR 1.0 (<1.2) APTT 23.1 (22.0-30.0) sec Sodium (137-145) mmol/L Potassium (3.5-5.1) mmol/L Chloride (98-107) mmol/L Carbon Dioxide (22-30) mmol/L Anion Gap mmol/L BUN (9-20) mg/dL Creatinine (0.66-1.25) mg/dL Est GFR (CKD-EPI)AfAm (>60 ml/min/1.73 sqM) Est GFR (CKD-EPI)NonAf (>60 ml/min/1.73 sqM) Glucose (74-99) mg/dL Calcium (8.4-10.2) mg/dL Magnesium (1.6-2.3) mg/dL Total Bilirubin (0.2-1.3) mg/dL AST (17-59) U/L ALT (21-72) U/L Alkaline Phosphatase (38-126) U/L Total Creatine Kinase (55-170) U/L CK-MB (CK-2) (0.0-2.4) ng/mL CK-MB (CK-2) Rel Index Troponin I (0.000-0.034) ng/mL NT-Pro-B Natriuret Pep 17 pg/mL Total Protein (6.3-8.2) g/dL Albumin (3.5-5.0) g/dL TSH (0.465-4.680) mIU/L Disposition Clinical Impression: Hypertension Disposition: HOME SELF-CARE Condition: Fair Instructions (If sedation given, give patient instructions): Hypertension (ED) Is patient prescribed a controlled substance at d/c from ED?: No Referrals: Kiki Montes MD [Primary Care Provider] - 1-2 days Time of Disposition: 20:55
[2018-05-05 19:56] LABS: Creatine Kinase MB 0.4 ng/mL (0.0-2.4); Troponin I <0.012 ng/mL (0.000-0.034)
[2018-05-05 20:51] VITALS: BP 140/84; PULSE 104; RESP 20
[2018-05-05 21:22] VITALS: TEMP 98.6
== END 2018-05-05 21:15 | disposition home or self-care (01) ==
LOC: EC 18:23
DX: I10 Essential (primary) hypertension (principal); R51 Headache; R00.0 Tachycardia, unspecified; F17.200 Nicotine dependence, unspecified, uncomplicated; Z79.899 Other long term (current) drug therapy; Z88.8 Allergy status to other drugs, medicaments and biological substances
CPT/HCPCS: 36415; 70450; 80053; 82550; 82553; 83735; 83880; 84443; 84484; 85025; 85610; 85730; 93005; 96360; 99284

== ENCOUNTER 2018-05-08 20:49 | Emergency (ER) | payer BC ==
[2018-05-08] MEDS ORDERED: ALPRAZolam 1 MG TAB PO STA (21:45)
[2018-05-08] MEDS ORDERED: DEXAMETHASONE SOD PHOSPHATE 4 MG/ML 1 ML VIAL IV STA (21:46)
[2018-05-08] MEDS ORDERED: DOXYCYCLINE 100 MG CAP PO STA (21:46)
[2018-05-08 22:03] LABS: Basophils # (A) 0.1 k/uL (0-0.2); Basophils % (A) 1 %; Eosinophils # (A) 0.3 k/uL (0-0.7); Eosinophils % (A) 2 %; HCT 48.3 % (39.0-53.0); HGB 15.9 gm/dL (13.0-17.5); Lymphocytes # (A) 2.4 k/uL (1.0-4.8); Lymphocytes % (A) 20 %; MCH 28.2 pg (25.0-35.0); MCHC 32.9 g/dL (31.0-37.0); MCV 85.5 fL (80.0-100.0); Mean Platelet Volume 7.1; Monocytes # (A) 0.7 k/uL (0-1.0); Monocytes % (A) 6 %; Neutrophils # (A) 8.6 k/uL (1.3-7.7); Neutrophils % (A) 70 %; Platelet Count 285 k/uL (150-450); RBC 5.65 m/uL (4.30-5.90); RDW 13.3 % (11.5-15.5); WBC 12.3 k/uL (3.8-10.6)
--- NOTE | 2018-05-08 22:05 | XR ---
EXAMINATION TYPE: XR chest 2V DATE OF EXAM: 05/08/2018 COMPARISON: 05/05/2018 HISTORY: Hypertension. Chest pain TECHNIQUE: Frontal and lateral views of the chest are obtained. FINDINGS: Heart and mediastinum are normal. Lungs are clear. Diaphragm is normal. Bony thorax appear s normal. IMPRESSION: Normal chest. There is improved inspiration compared to old exam.
[2018-05-08 22:14] VITALS: RESP 16; TEMP 99.1
[2018-05-08 22:16] LABS: Appearance,Urine Clear (Clear); Bilirubin,Urine Negative (Negative); Blood,Urine Trace (Negative); Color,Urine Colorless; Glucose,Urine (UA) Negative (Negative); Ketones,Urine Negative (Negative); Leukocyte Esterase,Urine Negative (Negative); Nitrite,Urine Negative (Negative); PH, Urine 6.5 (5.0-8.0); Protein,Urine Negative (Negative); RBC,Urine <1 /hpf (0-5); Urobilinogen,Urine <2.0 mg/dL (<2.0)
[2018-05-08 22:19] LABS: ALT 78 U/L (21-72); AST 36 U/L (17-59); Albumin 4.8 g/dL (3.5-5.0); Alkaline Phosphatase 108 U/L (38-126); Anion Gap 11 mmol/L; Blood Urea Nitrogen 20 mg/dL (9-20); Calcium 9.9 mg/dL (8.4-10.2); Carbon Dioxide 24 mmol/L (22-30); Chloride 102 mmol/L (98-107); Glucose 107 mg/dL (74-99); Potassium 4.3 mmol/L (3.5-5.1); Sodium 137 mmol/L (137-145); Total Bilirubin 0.7 mg/dL (0.2-1.3); Total Protein 8.2 g/dL (6.3-8.2)
--- NOTE | 2018-05-08 22:30 | ED ---
Recheck HPI - General Source: patient Mode of arrival: ambulatory Limitations: no limitations <Nataliya Guaman - Last Filed: 05/08/18 23:23> <Milady Escalona - Last Filed: 05/09/18 01:08> - General Chief Complaint: Recheck/Abnormal Lab/Rx Stated Complaint: revisit, needs blood pressure checked Time Seen by Provider: 05/08/18 21:28 - History of Present Illness Initial Comments: 32yo male with PMH of HTN presenting for elevated BP readings today. Pt states he has measured elevated BP readings all day today, he states he took his medication at 3AM, then he took another dose at 8PM. Pt states that he was did notice today some fullness feeling in his head and was worried this was associated with his elevation of BP. Pt states it is not a headache, just a slight pressure. Pt states he had a negative CT of his head Sunday when he presented for similar symptoms. pt states the feeling hasnt really subsided. Patient denies any nausea, vomiting, chest pain, dyspnea, dyspnea on exertion, abdominal pain, oliguria, speech changes, weakness, parathesias, loss of sensation/numbness, fever, chills, neck stiffness, vision changes, diplopia, back pain, neck pain or any other associated sympmtoms. Upon arrival pt appears well. VS reveal elevated BP. (Nataliya Guaman) - Related Data Home Medications Medication Instructions Recorded Confirmed Naproxen Sodium [Aleve] 440 mg PO DAILY PRN 05/05/18 05/08/18 amLODIPine [Norvasc] 5 mg PO DAILY 05/05/18 05/08/18 Previous Rx's Medication Instructions Recorded Doxycycline [Vibramycin] 100 mg PO BID #14 cap 05/05/18 Metoprolol Succinate (ER) [Toprol 25 mg PO DAILY #30 tab 05/05/18 Xl] Allergies Allergy/AdvReac Type Severity Reaction Status Date / Time HERMILA Inhibitors Allergy Swelling Verified 05/08/18 21:23 benazepril [From Lotrel] Allergy Swelling Verified 05/08/18 21:23 Review of Systems ROS Other: All systems not noted in ROS Statement are negative. <Nataliya Guaman - Last Filed: 05/08/18 23:23> ROS Other: All systems not noted in ROS Statement are negative. <Milady Escalona P - Last Filed: 05/09/18 01:08> ROS Statement: Those systems with pertinent positive or pertinent negative responses have been documented in the HPI. Past Medical History Past Medical History: Hypertension History of Any Multi-Drug Resistant Organisms: None Reported Past Surgical History: No Surgical Hx Reported Past Psychological History: No Psychological Hx Reported Smoking Status: Current every day smoker Past Alcohol Use History: None Reported Past Drug Use History: None Reported <Nataliya Guaman L - Last Filed: 05/08/18 23:23> General Exam Limitations: no limitations <Nataliya Guaman L - Last Filed: 05/08/18 23:23> <Milady Escalona P - Last Filed: 05/09/18 01:08> - General Exam Comments Initial Comments: General: The patient is awake and alert, in no distress, and does not appear acutely ill. Eye: =3 mm pupils are equal, round and reactive to light, extra-ocular movements are intact. No nystagmus. There is normal conjunctiva bilaterally. No signs of icterus. Ears, nose, mouth and throat: There are moist mucous membranes and no oral lesions. Neck: The neck is supple, there is no tenderness or JVD. Cardiovascular: There is a regular rate and rhythm. No murmur, rub or gallop is appreciated. Respiratory: Lungs are clear to auscultation, respirations are non-labored, breath sounds are equal. No wheezes, stridor, rales, or rhonchi. Gastrointestinal: Soft, non-distended, non-tender abdomen without masses or organomegaly noted. There is no rebound or guarding present. No CVA tenderness. Bowel sounds are unremarkable. Musculoskeletal: Normal ROM, no tenderness. Strength 5/5. Sensation intact. Pulses equal bilaterally 2+. Neurological: A&O x 3. CN II-XII intact, memory intact to immediately, intermediate and termite technician recall. Able to follow simple verbal. Able to name a common object (water bottle). High quality, labial (pa) and lingual (la) speech. Low quality posterior pharynx/larynx (ga) voice sounds. Able to express general knowledge (days in a week). No hemineglect or inattention noted. Finger agnosia (-) and spatially oriented (identified L index finger touched R shoulder with L index finger). . Light touch sensation present over the face, chest, abdomen, back, UE bilaterally, and LE bilaterally. Able to localize point during point localization b/l and extinction. No visible bulk atrophy, hypertrophy, fasciculations, or myoclonus of the UE or LE b/l. Full PROM in UE and LE b/l. Bilateral muscle strength 5/5 for the following muscles: deltoid, biceps, triceps, brachioradialis, wrist extensors/flexor, hip flexor, hip abductors/adductors, hamstrings, quadriceps, feet dorsiflexors/plantar flexors. Finger to nose, finger to the examiners finger, and heel to bazan coordinated and accurate b/l. Coordinated and even demonstration of hand flip, finger to thumb, and toe tap b/l. Gait is coordinated and even in stride with tandem, toe and heel walk. Maintains balance with monopedal stance. (-) Romberg. (-) pronator drift. No nuchal rigidity. (-) Brudzinskis and Kernig signs. Skin: Skin is warm and dry and no rashes or lesions are noted. Psychiatric: Cooperative, appropriate mood & affect, normal judgment. (Nataliya Guaman) Vital Signs 05/08/18 05/08/18 05/08/18 21:03 22:13 23:07 Temperature 99.4 F 99.1 F Pulse Rate 103 H 90 86 Respiratory 18 16 16 Rate Blood Pressure 191/99 141/89 121/80 O2 Sat by Pulse 99 95 95 Oximetry Medical Decision Making - Lab Data Result diagrams: 05/08/18 21:40 05/08/18 21:40 <Nataliya Guaman - Last Filed: 05/08/18 23:23> - Lab Data Result diagrams: 05/08/18 21:40 05/08/18 21:40 <Milady Escalona - Last Filed: 05/09/18 01:08> - Medical Decision Making Well-appearing 32-year-old male presenting for evaluation of elevated blood pressure. Patient states he has a fullness sensation of the head, there is no focal neurological deficits. Patient had recent negative CT. Patient denies any changes in symptoms. Patient denies any complaints concerning for focal deficits. I have low suspicion for intracranial process. I do not feel CT indicated at this time. Pt given xanax as he states he is anxious about BP. Upon reevaluation pt states he is feeling better. BP continues to trend downward and medication reach peak efficacy, patient took dose at 8 PM, patient was not given any medications for hypertension in the emergency department. Laboratory studies did reveal elevated white blood cell count, remaining no acute laboratory abnormalities, there was concern for possible community acquired pneumonia upon evaluation on Sunday. Patient was started on doxycycline. Patient instructed to continue medication as directed by previous prescriber. Patient states he will follow-up with his primary care provider tomorrow. Patient provided work note for this appointment. Pt did mention his throat was sore, and upon evaluation there was mild erythema, pt given decadron. Influenza testing (-). Return parameters were discussed at length the patient who verbalized understanding. Patient is discharged stable condition appearing well. I did consult attending provider about patient case, recommended discharge without outpatient f/u. Pt states he is feeling better, happy with discharge. BP 121/80. (Nataliya Guaman) I was available for consultation in the emergency department. The history and physical exam were done by the midlevel provider. I was consulted for this patient's care. I reviewed the case with the midlevel provider and based on their presentation of the patient, I agree with the assessment, medical decision making and plan of care as documented. (Milady Escalona) - Lab Data Lab Results 05/08/18 05/08/18 05/08/18 Range/Units 21:40 21:40 21:40 WBC 12.3 H (3.8-10.6) k/uL RBC 5.65 (4.30-5.90) m/uL Hgb 15.9 (13.0-17.5) gm/dL Hct 48.3 (39.0-53.0) % MCV 85.5 (80.0-100.0) fL MCH 28.2 (25.0-35.0) pg MCHC 32.9 (31.0-37.0) g/dL RDW 13.3 (11.5-15.5) % Plt Count 285 (150-450) k/uL Neutrophils % 70 % Lymphocytes % 20 % Monocytes % 6 % Eosinophils % 2 % Basophils % 1 % Neutrophils # 8.6 H (1.3-7.7) k/uL Lymphocytes # 2.4 (1.0-4.8) k/uL Monocytes # 0.7 (0-1.0) k/uL Eosinophils # 0.3 (0-0.7) k/uL Basophils # 0.1 (0-0.2) k/uL Sodium 137 (137-145) mmol/L Potassium 4.3 (3.5-5.1) mmol/L Chloride 102 (98-107) mmol/L Carbon Dioxide 24 (22-30) mmol/L Anion Gap 11 mmol/L BUN 20 (9-20) mg/dL Creatinine 1.03 (0.66-1.25) mg/dL Est GFR (CKD-EPI)AfAm >90 (>60 ml/min/1.73 sqM) Est GFR (CKD-EPI)NonAf >90 (>60 ml/min/1.73 sqM) Glucose 107 H (74-99) mg/dL Calcium 9.9 (8.4-10.2) mg/dL Total Bilirubin 0.7 (0.2-1.3) mg/dL AST 36 (17-59) U/L ALT 78 H (21-72) U/L Alkaline Phosphatase 108 (38-126) U/L Troponin I <0.012 (0.000-0.034) ng/mL Total Protein 8.2 (6.3-8.2) g/dL Albumin 4.8 (3.5-5.0) g/dL Urine Color Urine Appearance (Clear) Urine pH (5.0-8.0) Ur Specific Andrews (1.001-1.035) Urine Protein (Negative) Urine Glucose (UA) (Negative) Urine Ketones (Negative) Urine Blood (Negative) Urine Nitrite (Negative) Urine Bilirubin (Negative) Urine Urobilinogen (<2.0) mg/dL Ur Leukocyte Esterase (Negative) Urine RBC (0-5) /hpf Influenza Type A RNA (Not Detectd) Influenza Type B (PCR) (Not Detectd) 05/08/18 05/08/18 Range/Units 21:40 21:40 WBC (3.8-10.6) k/uL RBC (4.30-5.90) m/uL Hgb (13.0-17.5) gm/dL Hct (39.0-53.0) % MCV (80.0-100.0) fL MCH (25.0-35.0) pg MCHC (31.0-37.0) g/dL RDW (11.5-15.5) % Plt Count (150-450) k/uL Neutrophils % % Lymphocytes % % Monocytes % % Eosinophils % % Basophils % % Neutrophils # (1.3-7.7) k/uL Lymphocytes # (1.0-4.8) k/uL Monocytes # (0-1.0) k/uL Eosinophils # (0-0.7) k/uL Basophils # (0-0.2) k/uL Sodium (137-145) mmol/L Potassium (3.5-5.1) mmol/L Chloride (98-107) mmol/L Carbon Dioxide (22-30) mmol/L Anion Gap mmol/L BUN (9-20) mg/dL Creatinine (0.66-1.25) mg/dL Est GFR (CKD-EPI)AfAm (>60 ml/min/1.73 sqM) Est GFR (CKD-EPI)NonAf (>60 ml/min/1.73 sqM) Glucose (74-99) mg/dL Calcium (8.4-10.2) mg/dL Total Bilirubin (0.2-1.3) mg/dL AST (17-59) U/L ALT (21-72) U/L Alkaline Phosphatase (38-126) U/L Troponin I (0.000-0.034) ng/mL Total Protein (6.3-8.2) g/dL Albumin (3.5-5.0) g/dL Urine Color Colorless Urine Appearance Clear (Clear) Urine pH 6.5 (5.0-8.0) Ur Specific Andrews 1.000 L (1.001-1.035) Urine Protein Negative (Negative) Urine Glucose (UA) Negative (Negative) Urine Ketones Negative (Negative) Urine Blood Trace H (Negative) Urine Nitrite Negative (Negative) Urine Bilirubin Negative (Negative) Urine Urobilinogen <2.0 (<2.0) mg/dL Ur Leukocyte Esterase Negative (Negative) Urine RBC <1 (0-5) /hpf Influenza Type A RNA Not Detected (Not Detectd) Influenza Type B (PCR) Not Detected (Not Detectd) Disposition Is patient prescribed a controlled substance at d/c from ED?: No Time of Disposition: 22:31 <Nataliya Guaman - Last Filed: 05/08/18 23:23> <Milady Escalona - Last Filed: 05/09/18 01:08> Clinical Impression: Elevated blood pressure reading Disposition: HOME SELF-CARE Condition: Good Instructions (If sedation given, give patient instructions): DASH Eating Plan ( ED), Low-Sodium Diet (ED), Hypertension (ED) Additional Instructions: Please use medication as discussed. Please follow-up with family doctor in the next 24 hours. Please keep log of blood pressures. Please return to emergency room if the symptoms increase or worsen or for any other concerns, including headache, nausea, chest pain or SOB. Referrals: Kiki Montes MD [Primary Care Provider] - 1-2 days
[2018-05-08 23:07] VITALS: BP 121/80; PULSE 86
== END 2018-05-08 23:09 | disposition home or self-care (01) ==
LOC: EC 20:49
DX: I10 Essential (primary) hypertension (principal); F17.200 Nicotine dependence, unspecified, uncomplicated; Z79.899 Other long term (current) drug therapy; Z88.8 Allergy status to other drugs, medicaments and biological substances
CPT/HCPCS: 36415; 80053; 84484; 85025; 81001; 87502; 71046; 99283; 96374; J1100

== ENCOUNTER 2018-05-09 21:00 | Emergency (ER) | payer BC ==
[2018-05-09 21:12] VITALS: RESP 18
--- NOTE | 2018-05-09 21:34 | ED ---
General Adult HPI - General Chief complaint: Recheck/Abnormal Lab/Rx Stated complaint: Allergic reaction, throat swelling, chest hurts Time Seen by Provider: 05/09/18 21:19 Source: patient Mode of arrival: ambulatory Limitations: no limitations - History of Present Illness Initial comments: Albin is a 32-year-old male with a history of hypertension who presents the emergency department today for reevaluation of sore throat and concern for reaction to his medications. Patient was seen and evaluated here on Sunday at which time he was noted to be profoundly hypertensive due to noncompliance with medications. He was resumed on amlodipine and Lopressor. He was reevaluated yesterday complaining of continued head pressure, concern for uncontrolled hypertension and sore throat. His hypertension was treated with Xanax, he was noted to have some pharyngitis and given Decadron. Patient reports that he felt well after the visit however this afternoon he again developed some sore throat and feeling of tightness in his throat and into his chest which made him concerned he may be having a reaction to the medication and prompted him to come to the emergency department for reevaluation. Patient has previously been prescribed these medications in the past, he had been off the medications for approximately 2 months prior to resuming them on Sunday. - Related Data Home Medications Medication Instructions Recorded Confirmed Naproxen Sodium [Aleve] 440 mg PO DAILY PRN 05/05/18 05/09/18 amLODIPine [Norvasc] 5 mg PO DAILY 05/05/18 05/09/18 Previous Rx's Medication Instructions Recorded Doxycycline [Vibramycin] 100 mg PO BID #14 cap 05/05/18 Metoprolol Succinate (ER) [Toprol 25 mg PO DAILY #30 tab 05/05/18 Xl] Allergies Allergy/AdvReac Type Severity Reaction Status Date / Time HERMILA Inhibitors Allergy Swelling Verified 05/09/18 21:26 benazepril [From Lotrel] Allergy Swelling Verified 05/09/18 21:26 Review of Systems ROS Statement: Those systems with pertinent positive or pertinent negative responses have been documented in the HPI. ROS Other: All systems not noted in ROS Statement are negative. Past Medical History Past Medical History: Hypertension History of Any Multi-Drug Resistant Organisms: None Reported Past Surgical History: No Surgical Hx Reported Past Psychological History: No Psychological Hx Reported Smoking Status: Current every day smoker Past Alcohol Use History: None Reported Past Drug Use History: None Reported General Exam - General Exam Comments Initial Comments: Physical Exam GENERAL: Patient is well-developed and well-nourished. Patient is nontoxic and well-hydrated and is in no distress. HENT: Normocephalic, Atraumatic. Mild erythema and injection of the tonsils, no exudate EYES: PERRL, EOMI PULMONARY: Mild expiratory wheezing CARDIOVASCULAR: There is a regular rate and rhythm without any murmurs gallops or rubs. ABDOMEN: Soft and nontender with normal bowel sounds. SKIN: Skin is clear with no lesions or rashes and otherwise unremarkable. : Deferred NEUROLOGIC: Patient is alert and oriented x3. Moving all extremities spontaneously MUSCULOSKELETAL: Normal extremities with adequate strength and full range of motion. No lower extremity swelling or edema. No calf tenderness. PSYCHIATRIC: Normal psychiatric evaluation. Limitations: no limitations Limitations: no limitations Course Vital Signs 05/09/18 05/09/18 05/09/18 21:08 21:57 22:13 Temperature 98.7 F Pulse Rate 85 85 85 Respiratory 18 18 Rate Blood Pressure 142/84 138/87 O2 Sat by Pulse 97 96 Oximetry 05/09/18 05/09/18 22:23 23:04 Temperature 97.9 F Pulse Rate 76 79 Respiratory 18 Rate Blood Pressure 132/80 O2 Sat by Pulse 96 Oximetry EKG Findings - EKG Comments: EKG Findings:: EKG obtained at 2121, rate is 85 for the sinus there is normal axis, normal intervals there is a mildly widened QRS with conduction harika, ME 140, QRS 122, QTc is 447. There are no acute ST elevations or depressions y. No evidence of acute ischemia or infarction. Medical Decision Making - Medical Decision Making The patient was seen and evaluated, vital signs were reviewed, nursing note reviewed History and physical exam are not concerning for ALLERGIC reaction, there is concern some viral pharyngitis however the patient was treated appropriately with Decadron yesterday, he was influenza negative Patient continues to complain of retrosternal chest pain since noon today I will obtain labs and a single troponin - considering that the patient's symptoms have been persistent for multiple hours I do feel a single troponin is adequate to assess for cardiac involvement of symptoms Ulcer unremarkable Leukocytosis likely related to Decadron Chest x-ray unremarkable Results were discussed with patient, again I do feel he is suffering from viral pharyngitis resulting and sore throat and feeling of swelling in his throat he was treated appropriately with Decadron yesterday. Patient will follow up with his primary care physician tomorrow. All questions pertaining care were answered return parameters were discussed patient was discharged home in stable condition - Lab Data Result diagrams: 05/09/18 21:36 05/09/18 21:36 Lab Results 05/09/18 05/09/18 05/09/18 Range/Units 21:36 21:36 21:36 WBC 13.0 H (3.8-10.6) k/uL RBC 5.58 (4.30-5.90) m/uL Hgb 15.8 (13.0-17.5) gm/dL Hct 47.3 (39.0-53.0) % MCV 84.8 (80.0-100.0) fL MCH 28.3 (25.0-35.0) pg MCHC 33.4 (31.0-37.0) g/dL RDW 13.4 (11.5-15.5) % Plt Count 290 (150-450) k/uL Neutrophils % 59 % Lymphocytes % 30 % Monocytes % 6 % Eosinophils % 3 % Basophils % 1 % Neutrophils # 7.7 (1.3-7.7) k/uL Lymphocytes # 3.9 (1.0-4.8) k/uL Monocytes # 0.7 (0-1.0) k/uL Eosinophils # 0.4 (0-0.7) k/uL Basophils # 0.1 (0-0.2) k/uL PT (9.0-12.0) sec INR (<1.2) APTT (22.0-30.0) sec Sodium 138 (137-145) mmol/L Potassium 4.2 (3.5-5.1) mmol/L Chloride 103 (98-107) mmol/L Carbon Dioxide 24 (22-30) mmol/L Anion Gap 11 mmol/L BUN 21 H (9-20) mg/dL Creatinine 1.00 (0.66-1.25) mg/dL Est GFR (CKD-EPI)AfAm >90 (>60 ml/min/1.73 sqM) Est GFR (CKD-EPI)NonAf >90 (>60 ml/min/1.73 sqM) Glucose 97 (74-99) mg/dL Calcium 10.2 (8.4-10.2) mg/dL Magnesium 2.0 (1.6-2.3) mg/dL Total Bilirubin 0.6 (0.2-1.3) mg/dL AST 30 (17-59) U/L ALT 71 (21-72) U/L Alkaline Phosphatase 99 (38-126) U/L Total Creatine Kinase 77 (55-170) U/L CK-MB (CK-2) 0.3 (0.0-2.4) ng/mL CK-MB (CK-2) Rel Index 0.4 Troponin I <0.012 (0.000-0.034) ng/mL Total Protein 7.9 (6.3-8.2) g/dL Albumin 4.7 (3.5-5.0) g/dL Urine Opiates Screen (NotDetected) Ur Oxycodone Screen (NotDetected) Urine Methadone Screen (NotDetected) Ur Propoxyphene Screen (NotDetected) Ur Barbiturates Screen (NotDetected) U Tricyclic Antidepress (NotDetected) Ur Phencyclidine Scrn (NotDetected) Ur Amphetamines Screen (NotDetected) U Methamphetamines Scrn (NotDetected) U Benzodiazepines Scrn (NotDetected) Urine Cocaine Screen (NotDetected) U Marijuana (THC) Screen (NotDetected) 05/09/18 05/09/18 Range/Units 21:36 22:33 WBC (3.8-10.6) k/uL RBC (4.30-5.90) m/uL Hgb (13.0-17.5) gm/dL Hct (39.0-53.0) % MCV (80.0-100.0) fL MCH (25.0-35.0) pg MCHC (31.0-37.0) g/dL RDW (11.5-15.5) % Plt Count (150-450) k/uL Neutrophils % % Lymphocytes % % Monocytes % % Eosinophils % % Basophils % % Neutrophils # (1.3-7.7) k/uL Lymphocytes # (1.0-4.8) k/uL Monocytes # (0-1.0) k/uL Eosinophils # (0-0.7) k/uL Basophils # (0-0.2) k/uL PT 10.7 (9.0-12.0) sec INR 1.0 (<1.2) APTT 22.6 (22.0-30.0) sec Sodium (137-145) mmol/L Potassium (3.5-5.1) mmol/L Chloride (98-107) mmol/L Carbon Dioxide (22-30) mmol/L Anion Gap mmol/L BUN (9-20) mg/dL Creatinine (0.66-1.25) mg/dL Est GFR (CKD-EPI)AfAm (>60 ml/min/1.73 sqM) Est GFR (CKD-EPI)NonAf (>60 ml/min/1.73 sqM) Glucose (74-99) mg/dL Calcium (8.4-10.2) mg/dL Magnesium (1.6-2.3) mg/dL Total Bilirubin (0.2-1.3) mg/dL AST (17-59) U/L ALT (21-72) U/L Alkaline Phosphatase (38-126) U/L Total Creatine Kinase (55-170) U/L CK-MB (CK-2) (0.0-2.4) ng/mL CK-MB (CK-2) Rel Index Troponin I (0.000-0.034) ng/mL Total Protein (6.3-8.2) g/dL Albumin (3.5-5.0) g/dL Urine Opiates Screen Not Detected (NotDetected) Ur Oxycodone Screen Not Detected (NotDetected) Urine Methadone Screen Not Detected (NotDetected) Ur Propoxyphene Screen Not Detected (NotDetected) Ur Barbiturates Screen Not Detected (NotDetected) U Tricyclic Antidepress Not Detected (NotDetected) Ur Phencyclidine Scrn Not Detected (NotDetected) Ur Amphetamines Screen Not Detected (NotDetected) U Methamphetamines Scrn Not Detected (NotDetected) U Benzodiazepines Scrn Detected H (NotDetected) Urine Cocaine Screen Not Detected (NotDetected) U Marijuana (THC) Screen Not Detected (NotDetected) Disposition Clinical Impression: Pharyngitis Disposition: HOME SELF-CARE Condition: Stable Instructions (If sedation given, give patient instructions): Pharyngitis (ED) Is patient prescribed a controlled substance at d/c from ED?: No Referrals: Kiki Montes MD [Primary Care Provider] - 1-2 days
[2018-05-09 21:46] LABS: Basophils # (A) 0.1 k/uL (0-0.2); Basophils % (A) 1 %; Eosinophils # (A) 0.4 k/uL (0-0.7); Eosinophils % (A) 3 %; HCT 47.3 % (39.0-53.0); HGB 15.8 gm/dL (13.0-17.5); Lymphocytes # (A) 3.9 k/uL (1.0-4.8); Lymphocytes % (A) 30 %; MCH 28.3 pg (25.0-35.0); MCHC 33.4 g/dL (31.0-37.0); MCV 84.8 fL (80.0-100.0); Mean Platelet Volume 7.1; Monocytes # (A) 0.7 k/uL (0-1.0); Monocytes % (A) 6 %; Neutrophils # (A) 7.7 k/uL (1.3-7.7); Neutrophils % (A) 59 %; Platelet Count 290 k/uL (150-450); RBC 5.58 m/uL (4.30-5.90); RDW 13.4 % (11.5-15.5)
[2018-05-09] MEDS: ASPIRIN 81 MG PO STA (21:54)
[2018-05-09] MEDS: SODIUM CHLORIDE 0.9% 1,000 ML IV STA (21:56)
[2018-05-09 21:57] LABS: Partial Thromboplastin Time 22.6 sec (22.0-30.0); Prothrombin Time 10.7 sec (9.0-12.0)
[2018-05-09 21:58] LABS: ALT 71 U/L (21-72); AST 30 U/L (17-59); Albumin 4.7 g/dL (3.5-5.0); Alkaline Phosphatase 99 U/L (38-126); Anion Gap 11 mmol/L; Blood Urea Nitrogen 21 mg/dL (9-20); Calcium 10.2 mg/dL (8.4-10.2); Carbon Dioxide 24 mmol/L (22-30); Chloride 103 mmol/L (98-107); Glucose 97 mg/dL (74-99); Potassium 4.2 mmol/L (3.5-5.1); Sodium 138 mmol/L (137-145); Total Bilirubin 0.6 mg/dL (0.2-1.3); Total Protein 7.9 g/dL (6.3-8.2)
--- NOTE | 2018-05-09 21:59 | XR ---
EXAMINATION TYPE: XR chest 2V DATE OF EXAM: 05/09/2018 COMPARISON: May 08, 2018 HISTORY: Chest pain TECHNIQUE: Frontal and lateral views of the chest are obtained. FINDINGS: Heart and mediastinum are normal. Lungs are clear. Diaphragm is normal. Bony thorax is int act. The pulmonary vascularity is normal. There are chest leads. IMPRESSION: Normal chest. No change.
[2018-05-09 22:00] LABS: Creatine Kinase 77 U/L (55-170)
[2018-05-09 22:13] LABS: Creatine Kinase MB 0.3 ng/mL (0.0-2.4); Troponin I <0.012 ng/mL (0.000-0.034)
[2018-05-09] MEDS: IPRATROPIUM-ALBUTEROL 3 ML NEB INHALATION STA (22:13)
[2018-05-09 23:00] LABS: Amphetamine Screen,Urine Not Detected (NotDetected); Barbiturate Screen,Urine Not Detected (NotDetected); Benzodiazepines Screen,Urine Detected (NotDetected); Cocaine Screen,Urine Not Detected (NotDetected); Methadone Screen, Urine Not Detected (NotDetected); Opiate Screen,Urine Not Detected (NotDetected); Oxycodone Screen, Urine Not Detected (NotDetected); Phencyclidine Screen,Urine Not Detected (NotDetected); Tricyclic Antidepressant,Urine Not Detected (NotDetected); Urn Cannabinoid Scrn Not Detected (NotDetected)
[2018-05-09 23:07] VITALS: BP 132/80; PULSE 79; TEMP 97.9
== END 2018-05-09 23:09 | disposition home or self-care (01) ==
LOC: EC 21:00
DX: J02.9 Acute pharyngitis, unspecified (principal); R07.2 Precordial pain; I10 Essential (primary) hypertension; F17.200 Nicotine dependence, unspecified, uncomplicated; Z79.899 Other long term (current) drug therapy; Z88.8 Allergy status to other drugs, medicaments and biological substances
CPT/HCPCS: 36415; 71046; 80053; 80306; 82550; 82553; 83735; 84484; 85025; 85610; 85730; 93005; 94640; 96360; 99284

== ENCOUNTER 2018-05-10 11:38 | Observation (INO) | payer BC ==
--- NOTE | 2018-05-10 12:05 | ED ---
General Adult HPI - General Chief complaint: Chest Pain Stated complaint: Chest Pain, Pain in L Arm Time Seen by Provider: 05/10/18 11:53 Source: patient, RN notes reviewed, old records reviewed Mode of arrival: ambulatory Limitations: no limitations - History of Present Illness Initial comments: 32-year-old male presenting for evaluation of chest pain which began one hour prior to arrival. Patient was at rest when symptoms began. He didn't report some associated nausea. He's had intermittent chest pain over the past several days and has been evaluated in the emergency department. Restraints episode of hypotension which was secondary to medication noncompliance. He was restarted on both his Norvasc and Toprol. He was evaluated by his primary care physician today and was asymptomatic at that time. His had no vomiting. No abdominal pain. No headache. Did report some mild lightheadedness. No history of CAD. He has history of hypertension, he is currently smoking although he has cut back in the past week - Related Data Home Medications Medication Instructions Recorded Confirmed Naproxen Sodium [Aleve] 440 mg PO DAILY PRN 05/05/18 05/10/18 amLODIPine [Norvasc] 5 mg PO DAILY 05/05/18 05/10/18 Previous Rx's Medication Instructions Recorded Doxycycline [Vibramycin] 100 mg PO BID #14 cap 05/05/18 Metoprolol Succinate (ER) [Toprol 25 mg PO DAILY #30 tab 05/05/18 Xl] Allergies Allergy/AdvReac Type Severity Reaction Status Date / Time HERMILA Inhibitors Allergy Swelling Verified 05/10/18 12:41 benazepril [From Lotrel] Allergy Swelling Verified 05/10/18 12:41 Review of Systems ROS Statement: Those systems with pertinent positive or pertinent negative responses have been documented in the HPI. ROS Other: All systems not noted in ROS Statement are negative. Past Medical History Past Medical History: Hypertension History of Any Multi-Drug Resistant Organisms: None Reported Past Surgical History: No Surgical Hx Reported Past Psychological History: No Psychological Hx Reported Smoking Status: Current every day smoker Past Alcohol Use History: None Reported Past Drug Use History: None Reported General Exam Limitations: no limitations General appearance: alert, in no apparent distress Head exam: Present: atraumatic, normocephalic Eye exam: Present: normal appearance, PERRL ENT exam: Present: normal exam Neck exam: Present: normal inspection. Absent: tenderness, meningismus Respiratory exam: Present: normal lung sounds bilaterally. Absent: respiratory distress, wheezes, rales Cardiovascular Exam: Present: regular rate, normal rhythm GI/Abdominal exam: Present: soft. Absent: distended, tenderness, guarding Extremities exam: Present: normal inspection, normal capillary refill. Absent: pedal edema, calf tenderness Back exam: Present: normal inspection, full ROM Neurological exam: Present: alert, oriented X3, CN II-XII intact. Absent: motor sensory deficit Psychiatric exam: Present: normal affect, normal mood Skin exam: Present: warm, dry, intact. Absent: cyanosis, diaphoretic Course Vital Signs 05/10/18 11:45 Temperature 98.8 F Pulse Rate 91 Respiratory 22 Rate Blood Pressure 152/88 O2 Sat by Pulse 97 Oximetry EKG Findings - EKG Comments: EKG Findings:: EKG: Normal sinus rhythm, incomplete right bundle branch block, rate of 86, TN interval 144, QRS duration 118, QTC 442, no ST segment elevation , no change compared to prior Medical Decision Making - Medical Decision Making 32-year-old male presenting for reevaluation of chest pain. Patient is a current smoker, history of hypertension, family history of UT. Symptoms may be related to anxiety, patient did have recent cardiac in his family within the past 2 weeks. Pain has some typical features. EKG is unchanged compared to the past one week. Laboratory studies reveal normal CBC, normal CMP, negative troponin, negative d-dimer. This is the patient's 6 ER visits for similar complaints. Will place in observation for telemetry, cardiac enzymes, cardiology consultation. Case discussed with Dr. Mayes who will accept. - Lab Data Result diagrams: 05/10/18 11:19 05/10/18 11:19 Lab Results 05/10/18 05/10/18 05/10/18 Range/Units 11:19 11:19 11:19 WBC 11.5 H (3.8-10.6) k/uL RBC 5.24 (4.30-5.90) m/uL Hgb 14.9 (13.0-17.5) gm/dL Hct 44.4 (39.0-53.0) % MCV 84.7 (80.0-100.0) fL MCH 28.4 (25.0-35.0) pg MCHC 33.5 (31.0-37.0) g/dL RDW 13.4 (11.5-15.5) % Plt Count 296 (150-450) k/uL Neutrophils % 71 % Lymphocytes % 20 % Monocytes % 5 % Eosinophils % 3 % Basophils % 1 % Neutrophils # 8.1 H (1.3-7.7) k/uL Lymphocytes # 2.2 (1.0-4.8) k/uL Monocytes # 0.6 (0-1.0) k/uL Eosinophils # 0.4 (0-0.7) k/uL Basophils # 0.1 (0-0.2) k/uL PT (9.0-12.0) sec INR (<1.2) APTT (22.0-30.0) sec D-Dimer (<0.60) mg/L FEU Sodium 139 (137-145) mmol/L Potassium 4.4 (3.5-5.1) mmol/L Chloride 105 (98-107) mmol/L Carbon Dioxide 25 (22-30) mmol/L Anion Gap 9 mmol/L BUN 19 (9-20) mg/dL Creatinine 0.99 (0.66-1.25) mg/dL Est GFR (CKD-EPI)AfAm >90 (>60 ml/min/1.73 sqM) Est GFR (CKD-EPI)NonAf >90 (>60 ml/min/1.73 sqM) Glucose 96 (74-99) mg/dL Calcium 10.0 (8.4-10.2) mg/dL Magnesium 1.9 (1.6-2.3) mg/dL Total Bilirubin 0.6 (0.2-1.3) mg/dL AST 35 (17-59) U/L ALT 82 H (21-72) U/L Alkaline Phosphatase 100 (38-126) U/L Total Creatine Kinase 71 (55-170) U/L CK-MB (CK-2) 0.3 (0.0-2.4) ng/mL CK-MB (CK-2) Rel Index 0.4 Troponin I <0.012 (0.000-0.034) ng/mL Total Protein 7.9 (6.3-8.2) g/dL Albumin 4.9 (3.5-5.0) g/dL Lipase 54 (23-300) U/L 05/10/18 Range/Units 11:19 WBC (3.8-10.6) k/uL RBC (4.30-5.90) m/uL Hgb (13.0-17.5) gm/dL Hct (39.0-53.0) % MCV (80.0-100.0) fL MCH (25.0-35.0) pg MCHC (31.0-37.0) g/dL RDW (11.5-15.5) % Plt Count (150-450) k/uL Neutrophils % % Lymphocytes % % Monocytes % % Eosinophils % % Basophils % % Neutrophils # (1.3-7.7) k/uL Lymphocytes # (1.0-4.8) k/uL Monocytes # (0-1.0) k/uL Eosinophils # (0-0.7) k/uL Basophils # (0-0.2) k/uL PT 10.8 (9.0-12.0) sec INR 1.0 (<1.2) APTT 23.0 (22.0-30.0) sec D-Dimer 0.30 (<0.60) mg/L FEU Sodium (137-145) mmol/L Potassium (3.5-5.1) mmol/L Chloride (98-107) mmol/L Carbon Dioxide (22-30) mmol/L Anion Gap mmol/L BUN (9-20) mg/dL Creatinine (0.66-1.25) mg/dL Est GFR (CKD-EPI)AfAm (>60 ml/min/1.73 sqM) Est GFR (CKD-EPI)NonAf (>60 ml/min/1.73 sqM) Glucose (74-99) mg/dL Calcium (8.4-10.2) mg/dL Magnesium (1.6-2.3) mg/dL Total Bilirubin (0.2-1.3) mg/dL AST (17-59) U/L ALT (21-72) U/L Alkaline Phosphatase (38-126) U/L Total Creatine Kinase (55-170) U/L CK-MB (CK-2) (0.0-2.4) ng/mL CK-MB (CK-2) Rel Index Troponin I (0.000-0.034) ng/mL Total Protein (6.3-8.2) g/dL Albumin (3.5-5.0) g/dL Lipase (23-300) U/L Disposition Clinical Impression: Chest pain Disposition: ADMITTED IP TO THIS HOSP Condition: Stable Is patient prescribed a controlled substance at d/c from ED?: No Referrals: Kiki Montes MD [Primary Care Provider] - 1-2 days Decision to Admit Reason: Admit from EC Decision Date: 05/10/18 Decision Time: 13:42
[2018-05-10 12:29] LABS: Basophils # (A) 0.1 k/uL (0-0.2); Basophils % (A) 1 %; Eosinophils # (A) 0.4 k/uL (0-0.7); Eosinophils % (A) 3 %; HCT 44.4 % (39.0-53.0); HGB 14.9 gm/dL (13.0-17.5); Lymphocytes # (A) 2.2 k/uL (1.0-4.8); Lymphocytes % (A) 20 %; MCH 28.4 pg (25.0-35.0); MCHC 33.5 g/dL (31.0-37.0); MCV 84.7 fL (80.0-100.0); Mean Platelet Volume 7.1; Monocytes # (A) 0.6 k/uL (0-1.0); Monocytes % (A) 5 %; Neutrophils # (A) 8.1 k/uL (1.3-7.7); Neutrophils % (A) 71 %; Platelet Count 296 k/uL (150-450); RBC 5.24 m/uL (4.30-5.90); RDW 13.4 % (11.5-15.5); WBC 11.5 k/uL (3.8-10.6)
--- NOTE | 2018-05-10 12:39 | XR ---
EXAMINATION TYPE: XR chest 2V DATE OF EXAM: 05/10/2018 COMPARISON: Prior chest 05/09/2017 HISTORY: Chest pain TECHNIQUE: Frontal and lateral views of the chest are obtained. FINDINGS: There is no focal air space opacity, pleural effusion, or pneumothorax seen. The cardiac silhouette size is within normal limits. The osseous structures are intact. IMPRESSION: No acute cardiopulmonary process.
[2018-05-10 12:41] LABS: ALT 82 U/L (21-72); AST 35 U/L (17-59); Albumin 4.9 g/dL (3.5-5.0); Alkaline Phosphatase 100 U/L (38-126); Anion Gap 9 mmol/L; Blood Urea Nitrogen 19 mg/dL (9-20); Carbon Dioxide 25 mmol/L (22-30); Chloride 105 mmol/L (98-107); Glucose 96 mg/dL (74-99); Lipase 54 U/L (23-300); Magnesium 1.9 mg/dL (1.6-2.3); Potassium 4.4 mmol/L (3.5-5.1); Sodium 139 mmol/L (137-145); Total Bilirubin 0.6 mg/dL (0.2-1.3); Total Protein 7.9 g/dL (6.3-8.2)
[2018-05-10 12:48] LABS: D-Dimer 0.3 mg/L FEU (<0.60); Prothrombin Time 10.8 sec (9.0-12.0)
[2018-05-10 12:49] LABS: Creatine Kinase 71 U/L (55-170)
[2018-05-10 13:02] LABS: Creatine Kinase MB 0.3 ng/mL (0.0-2.4); Troponin I <0.012 ng/mL (0.000-0.034)
[2018-05-10] MEDS ORDERED: ASPIRIN 325 MG TAB PO STA (13:32)
[2018-05-10] MEDS ORDERED: SODIUM CHLORIDE 0.9% 500 ML 500 ML IV ONE (13:32)
[2018-05-10] MEDS ORDERED: NALOXONE 0.4 MG/ML 1 ML VIAL IV PRN (13:38)
[2018-05-10] MEDS ORDERED: ONDANSETRON 4 MG/2 ML VIAL IVP PRN (13:38)
[2018-05-10] MEDS ORDERED: ACETAMINOPHEN TAB 325 MG TAB PO PRN (13:38)
[2018-05-10] MEDS ORDERED: MORPHINE SULFATE 4 MG/ML SYRINGE IV PRN (13:38)
[2018-05-10] MEDS ORDERED: NITROGLYCERIN SL TABS 0.4 MG TAB SUBLINGUAL PRN (13:40)
[2018-05-10 14:31] VITALS: BMI 21.9
--- NOTE | 2018-05-10 16:09 | P.HPIM ---
History of Present Illness H&P Date: 05/10/18 Chief Complaint: Chest pain The patient is a 32-year-old obese male with a past with a history of essential hypertension, smoking, medical noncompliance that presents to the ER for the fifth time in the last week with chief complaints of chest pain. The patient has been having ongoing intermittent episodes of chest pain since this past Sunday. This morning specifically the patient woke up and apparently felt nauseous after taking his antihypertensive medications, he subsequently went to his PCP and then went home and then started having mild to moderate substernal chest pressure with some associated left upper extremity numbness and tingling. The patient reported his blood pressure was elevated at home 160/90 and that he took an extra dose of his Norvasc. The patient denies any associated shortness of breath, diaphoresis, lower extremity edema, or palpitations. The patient reports a family history of hypertension, but denies any history of coronary artery disease. Apparently the patient has recently lost two in-laws due to heart disease in their 40s and admits that he becomes anxious when his blood pressure is elevated. He was previously seen in the ER and has had a CT of his head which was negative for any acute intracranial pathology, he has been treated previously with Xanax in the ED. His UDS was also negative. And multiple visits to the ER all his troponins have been negative. Review of today's labs, d-dimer -0.30, WBC count 11.5, troponin negative less than 0.012, EKG showing sinus mechanism withaddition of any acute ischemia. Chest x-ray showing no acute cardiopulmonary process. Blood pressure elevated at 152/88. Patient was given aspirin and recommended for admission Review of Systems Pertinent positives per HPI all other review of systems otherwise negative Past Medical History Past Medical History: Hypertension Additional Past Medical History / Comment(s): Pt states as a child he was getting bruising and had a work up that showed low platlets-has never happened again. History of Any Multi-Drug Resistant Organisms: None Reported Past Surgical History: No Surgical Hx Reported Past Anesthesia/Blood Transfusion Reactions: Unable to Obtain Additional Past Anesthesia/Blood Transfusion Reaction / Comment(s): Pt has never had surgery. Smoking Status: Current every day smoker - Past Family History Father Family Medical History: CVA/TIA, Hypertension Additional Family Medical History / Comment(s): Father of a CVA at the age of 58yrs. Mother Family Medical History: No Reported History Additional Family Medical History / Comment(s): Mother is healthy Medications and Allergies Home Medications Medication Instructions Recorded Confirmed Type Doxycycline [Vibramycin] 100 mg PO BID #14 cap 05/05/18 05/10/18 Rx Metoprolol Succinate (ER) [Toprol 25 mg PO DAILY #30 tab 05/05/18 05/10/18 Rx Xl] Naproxen Sodium [Aleve] 440 mg PO DAILY PRN 05/05/18 05/10/18 History amLODIPine [Norvasc] 5 mg PO DAILY 05/05/18 05/10/18 History Allergies Allergy/AdvReac Type Severity Reaction Status Date / Time HERMILA Inhibitors Allergy Swelling Verified 05/10/18 12:41 benazepril [From Lotrel] Allergy Swelling Verified 05/10/18 12:41 Physical Exam Vitals: Vital Signs Temp Pulse Resp BP Pulse Ox 05/10/18 13:58 88 18 128/75 97 05/10/18 11:45 98.8 F 91 22 152/88 97 Intake and Output 05/10/18 05/10/18 05/10/18 06:59 14:59 22:59 Other: Weight 77.564 kg Constitutional: No acute distress, conversant, pleasant Eyes: Anicteric sclerae, moist conjunctiva, no lid-lag, PERRLA ENMT: NC/AT,Oropharynx clear, no erythema, exudates Neck:Supple, FROM, no masses, or JVD, No carotid bruits; No thyromegaly Lungs: Clear to auscultation, Clear to percussion, Normal respiratory effort, no accessory muscle use Cardiovascular: Heart regular in rate and rhythm, No murmurs, gallops, or rubs no peripheral edema Abdominal: Soft Nontender, nom distended, no guarding, no rebound or rigidity, Normoactive bowel sounds No hepatomegaly, No splenomegaly, No palpable mass No abdominal wall hernia noted Skin: Normal temperature, tone, texture, turgor, No induration No subcutaneous nodules, No rash, lesions, No ulcers Extremities:No digital cyanosis No clubbing, Pedal pulses intact and symmetrical Radial pulses intact and symmetrical Normal gait and station, No calf tenderness Psychiatric: Alert and oriented to person, place and time, Appropriate affect Intact judgement Neuro: Muscles Strength 5/5 in all 4 extremities, Sensation to light touch grossly present throughout, Cranial nerves II-XII grossly intact. No focal sensory deficits Results CBC & Chem 7: 05/10/18 11:19 05/10/18 11:19 Labs: Abnormal Lab Results - Last 24 Hours (Table) 05/10/18 05/10/18 Range/Units 11:19 11:19 WBC 11.5 H (3.8-10.6) k/uL Neutrophils # 8.1 H (1.3-7.7) k/uL ALT 82 H (21-72) U/L Thrombosis Risk Factor Assmnt - Choose All That Apply Any of the Below Risk Factors Present?: No Other Risk Factors: No Other congenital or acquired thrombophilia - If yes, enter type in comment: No Thrombosis Risk Factor Assessment Level: Very Low Risk Assessment and Plan (1) Chest pain Current Visit: Yes Status: Acute Code(s): R07.9 - CHEST PAIN, UNSPECIFIED SNOMED Code(s): 06220864 (2) Hypertension Current Visit: No Status: Acute Code(s): I10 - ESSENTIAL (PRIMARY) HYPERTENSION SNOMED Code(s): 73285647 (3) Smoker Current Visit: Yes Status: Acute Code(s): F17.200 - NICOTINE DEPENDENCE, UNSPECIFIED, UNCOMPLICATED SNOMED Code(s): 78211732 (4) Anxiety Current Visit: Yes Status: Acute Code(s): F41.9 - ANXIETY DISORDER, UNSPECIFIED SNOMED Code(s): 84942645 Plan: The patient is placed in observation anticipate a less than 2 midnight stay with chest pain with atypical features with ongoing risk factors including smoking and uncontrolled essential hypertension . He is monitored on telemetry , workup thus far includes EKG negative for any sedation of any acute ischemia in sinus mechanism, negative first set of troponins. Continue routine chest pain orders with daily aspirin, nitroglycerin prn, check d-dimer and echocardiogram with plans for cardiology consultation. We'll continue to monitor the patient's clinical course. Psychiatry also consulted to evaluate for general anxiety disorder or panic attacks. CODE STATUS full code Anticipate discharge 1 day Discussed plan of care with patient Prophylaxis: SCDs
--- NOTE | 2018-05-10 17:04 | CONS ---
CONSULTATION Mr. Wild is a 32-year-old male with a history of hypertension and chronic tobacco use who presented to the emergency room with symptoms of chest discomfort. His discomfort started this morning. The discomfort has some positional respirophasic pattern to it. He has some tingling in the left arm. Because of that, he was seen in the emergency room and subsequently admitted. The patient has no prior cardiac history. He is reasonably active without any difficulty. He denies any exertional chest pain. No PND, orthopnea. No peripheral edema. He denies any dizziness or palpitation. The patient was seen in the emergency room 4 times over the last week for hypertension and upper respiratory infection. He has a longstanding history of hypertension but apparently has not been very compliant with his medical regimen. His coronary risk factors are remarkable for smoking about a pack and a half a day. He is nondiabetic. He has hypertension. His lipid profile is not available. MEDICATIONS: His medications at home include: 1. Norvasc 5 mg daily. 2. Metoprolol succinate 25 mg daily. 3. Vibramycin. 4. Naprosyn on a p.r.n. basis. REVIEW OF SYSTEMS: RESPIRATORY SYSTEM: He had a cough, dyspnea on exertion and recent upper respiratory infection. GI SYSTEM: No recent GI bleeding. No peptic ulcer disease. SYSTEM: No dysuria or hematuria. NERVOUS SYSTEM: No stroke or seizure. PHYSICAL EXAMINATION: He is a 32-year-old male, alert, oriented, in no apparent distress. Blood pressure 128/75 with a heart rate in the 80s. HEAD: Normocephalic. Eyes: Sclerae anicteric. NECK: Good carotid upstroke. No bruit. No jugular venous distention. LUNGS: Clear to auscultation. HEART: Regular rate and rhythm. S1, S2. No S3. No rub or gallop. ABDOMEN: Soft, nontender. Positive bowel sounds. No organomegaly. EXTREMITIES: No edema. LAB DATA: Lab data revealed a troponin less than 0.012, BUN and creatinine 19 and 0.99, potassium 4.4, hemoglobin of 14.9, white blood cells of 11.5. EKG revealed a sinus mechanism, normal axis with RSR prime. No acute changes. Chest x-ray revealed no acute infiltrate. IMPRESSION: 1. Chest discomfort, atypical for ischemic heart disease; probably noncardiac, most likely musculoskeletal in etiology. Could be related to the recent upper respiratory infection. 2. Chronic tobacco use. 3. Hypertension with prior history of noncompliance, according to the records. RECOMMENDATIONS: From the cardiac standpoint, I will continue on the present therapy. Will obtain cardiac enzymes and an echocardiogram. If there is no evidence of abnormality, the patient can be discharged home and undergo a stress echocardiogram as an outpatient. Thank you for this consult. Will follow with you. MMODL / IJN: [id number] /
[2018-05-10 19:06] LABS: Creatine Kinase 64 U/L (55-170)
[2018-05-10 19:20] LABS: Creatine Kinase MB 0.3 ng/mL (0.0-2.4); Troponin I <0.012 ng/mL (0.000-0.034)
[2018-05-11] MEDS ORDERED: ALPRAZolam 0.5 MG TAB PO PRN (00:07)
[2018-05-11 01:06] LABS: Creatine Kinase 58 U/L (55-170)
[2018-05-11 01:18] LABS: Creatine Kinase MB 0.3 ng/mL (0.0-2.4); Troponin I <0.012 ng/mL (0.000-0.034)
[2018-05-11 02:17] LABS: Cholesterol 150 mg/dL (<200); HDL Cholesterol 43 mg/dL (40-60); LDL Cholesterol,Calculated 93 mg/dL (0-99); Triglycerides 69 mg/dL (<150)
--- NOTE | 2018-05-11 07:12 | ECHOF ---
Referral Reason:chest pain MEASUREMENTS -------- HEIGHT: 188.0 cm WEIGHT: 77.6 kg BP: 128/75 RVIDd: 3.3 cm (< 3.3) IVSd: 1.2 cm (0.6 - 1.1) LVIDd: 4.8 cm (3.9 - 5.3) LVPWd: 1.2 cm (0.6 - 1.1) IVSs: 1.8 cm LVIDs: 3.3 cm LVPWs: 1.8 cm LAESV Index (A-L): 23.98 ml/m Ao Diam: 3.2 cm (2.0 - 3.7) AV Cusp: 2.3 cm (1.5 - 2.6) LA Diam: 3.6 cm (2.7 - 3.8) EPSS: 1.1 cm MV E Celio: 0.67 m/s MV DecT: 319 ms MV A Celio: 0.67 m/s MV E/A Ratio: 1.01 RAP: 5.00 mmHg RVSP: 7.82 mmHg MV EF SLOPE: 99.26 mm/s (70 - 150) MV EXCURSION: 1.35 cm (> 18.000) FINDINGS -------- Sinus rhythm. This was a technically adequate study. The left ventricular size is normal. There is mild concentric left ventricular hypertrophy. Overa ll left ventricular systolic function is normal with, an EF between 55 - 60 %. The right ventricle is mildly enlarged. Normal LA size by volume 22+/-6 ml/m2. The right atrium is normal in size. Aortic valve is trileaflet and is mildly thickened. Trace amount of aortic regurgitation. There is no evidence of aortic stenosis. The mitral valve leaflets are mildly thickened. There is trace to mild mitral regurgitation. Trace tricuspid regurgitation present. Right ventricular systolic pressure is normal at < 35 mmHg. There is no evidence of pulmonary hypertension. The pulmonic valve was not well visualized. The aortic root size is normal. Normal inferior vena cava with normal inspiratory collapse consistent with estimated right atrial pre ssure of 5 mmHg. There is no pericardial effusion. CONCLUSIONS -------- 1. Sinus rhythm. 2. This was a technically adequate study. 3. The left ventricular size is normal. 4. There is mild concentric left ventricular hypertrophy. 5. Overall left ventricular systolic function is normal with, an EF between 55 - 60 %. 6. The right ventricle is mildly enlarged. 7. Normal LA size by volume 22+/-6 ml/m2. 8. Aortic valve is trileaflet and is mildly thickened. 9. The mitral valve leaflets are mildly thickened. 10. There is trace to mild mitral regurgitation. 11. Trace tricuspid regurgitation present. 12. Right ventricular systolic pressure is normal at < 35 mmHg. 13. There is no evidence of pulmonary hypertension. 14. The pulmonic valve was not well visualized. 15. The aortic root size is normal. 16. There is no pericardial effusion. F[employer] JAVA DEVELOPER: Jasmeet Lizarraga RDCS
[2018-05-11] MEDS ORDERED: amLODIPine 5 MG TAB PO SCH (09:00)
[2018-05-11] MEDS ORDERED: METOPROLOL SUCCINATE (ER) 25 MG TAB.ER.24H PO SCH (09:00)
[2018-05-11] MEDS ORDERED: ASPIRIN 81 MG PO SCH (09:00)
[2018-05-11] MEDS ORDERED: ALPRAZolam 0.25 MG TAB PO PRN (11:23)
[2018-05-11] MEDS ORDERED: METOPROLOL TARTRATE 25 MG TAB PO STA (11:26)
[2018-05-11] MEDS ORDERED: HYDROCHLOROTHIAZIDE 25 MG TAB PO SCH (11:30)
--- NOTE | 2018-05-11 13:02 | PN ---
PROGRESS NOTE Mr. Wild is a 32-year-old male with a known history of chronic tobacco use and history of hypertension who presented with atypical chest pain. He is feeling well this morning. His breathing is stable. He denies any dizziness or palpitations. He is ambulating without difficulty. He continues to be on aspirin once a day, metoprolol succinate 25 mg daily, amlodipine 5 mg daily. PHYSICAL EXAMINATION: Blood pressure 117/70 with a heart rate in the 80s. LUNGS: Clear. HEART: Regular rate and rhythm. S1, S2. No S3. No rub. ABDOMEN: Soft, nontender. EXTREMITIES: No edema. LAB DATA: Lab data revealed troponin less than 0.012, cholesterol 150, LDL of 93. Echocardiogram revealed a preserved left ventricular size and systolic function. IMPRESSION: 1. Chest discomfort, atypical for ischemic heart disease. 2. Hypertension, under better control. 3. Hyperlipidemia. 4. Prior history of noncompliance. RECOMMENDATIONS: From the cardiac standpoint, he should be able to be discharged home today and undergo a stress test as an outpatient. MMODL / IJN: [id number] /
[2018-05-11 16:22] VITALS: BP 145/89; PULSE 77; RESP 18; TEMP 97.6
[2018-05-12] MEDS ORDERED: METOPROLOL SUCCINATE (ER) 50 MG TAB.ER.24H PO SCH (09:00)
== END 2018-05-11 18:22 | disposition home or self-care (01) ==
LOC: EC 11:38 → 3SCARD 13:38
PROVIDERS: ADMIT Family Medicine; ATTEND Family Medicine
DX: R07.89 Other chest pain (principal); R20.0 Anesthesia of skin; R20.2 Paresthesia of skin; I10 Essential (primary) hypertension; F41.9 Anxiety disorder, unspecified; R11.0 Nausea; M79.602 Pain in left arm; Z91.14 Patient's other noncompliance with medication regimen; T46.1X6A Underdosing of calcium-channel blockers, initial encounter; I95.9 Hypotension, unspecified; R42 Dizziness and giddiness; E78.5 Hyperlipidemia, unspecified; J06.9 Acute upper respiratory infection, unspecified; F17.210 Nicotine dependence, cigarettes, uncomplicated; E66.9 Obesity, unspecified; Z68.34 Body mass index [BMI] 34.0-34.9, adult; Z88.8 Allergy status to other drugs, medicaments and biological substances; Z79.899 Other long term (current) drug therapy; Z82.3 Family history of stroke; Z82.49 Family history of ischemic heart disease and other diseases of the circulatory system
CPT/HCPCS: 99285; 36415; 93005; 93306; 85379; 80061; 80053; 82550; 82553; 83690; 83735; 84484; 85025; 85610; 85730; 71046; G0378 ×2

== ENCOUNTER → 2018-05-23 | Outpatient (CLI) | payer BC ==
--- NOTE | 2018-05-23 15:55 | US ---
EXAMINATION TYPE: US kidneys/renal and bladder DATE OF EXAM: 05/23/2018 COMPARISON: NONE CLINICAL HISTORY: 32-year-old male 110 Hypertension, R31.9 Hematuria, unspecified. Hematuria, HTN TECHNIQUE: Multiple sonographic images of the kidneys and bladder are obtained. FINDINGS: EXAM MEASUREMENTS: Right Kidney: 11.6 x 5.5 x 4.3 cm Left Kidney: 11.8 x 7.0 x 5.9 cm No hydronephrosis on either side. Bladder: Nondistention of the bladder limits its evaluation. Bilateral Jets seen: no Incidental echogenic appearance to the liver. IMPRESSION: 1. No hydronephrosis. 2. Nondistention of the bladder limits its evaluation. 3. Echogenic appearing liver suggests hepatic steatosis.
== END | disposition home or self-care (01) ==
LOC: RADUSWWP 14:46
PROVIDERS: ATTEND Family Medicine
DX: R31.9 Hematuria, unspecified (principal); I10 Essential (primary) hypertension
CPT/HCPCS: 76770

== ENCOUNTER → 2018-05-25 | Outpatient (CLI) | payer BC ==
[2018-05-25 14:07] LABS: Creatinine 24 Hour,Urine 2686.1 mg/24hr (1000.0-2000.0)
[2018-05-27 14:12] LABS: Total Volume 24 Hour,Urine 1625 mls (800-1800)
[2018-05-27 15:22] LABS: Total Volume 24 Hour,Urine 1625 mls (800-1800)
[2018-05-28 15:47] LABS: Total Protein 24 Hour,Urine 179 mg/24hr (42.0-225.0)
== END | disposition home or self-care (01) ==
LOC: LABWHC1 10:56
PROVIDERS: ATTEND Family Medicine
DX: I10 Essential (primary) hypertension (principal)
CPT/HCPCS: 36415; 81050; 82575; 84156

== ENCOUNTER → 2018-07-22 | Outpatient (CLI) | payer BC ==
--- NOTE | 2018-07-22 12:51 | MR ---
EXAMINATION TYPE: MR brain wo con DATE OF EXAM: 07/22/2018 COMPARISON: CT brain dated 05/05/2018 HISTORY: Headache, pressure TECHNIQUE: Multiplanar, multisequence images of the brain and brainstem is performed without intravenous contras t. FINDINGS: Diffusion weighted images demonstrate no evidence of a recent infarct or other diffusion ab normality. There is no extra-axial fluid collection. The ventricular system and cisternal spaces ar e normal in size and appearance. The brain volume is age appropriate. There are punctate foci of T2/FLAIR hyperintensity scattered within the subcortical white matter of t he parietal lobes and frontal lobes. There are approximately 6 on the right and 4 on the left. One of these is seen at the margin of the right genuine of the corpus callosum and frontal white matter. Pa tchy periatrial T2/FLAIR hyperattenuation is also seen. These measure up to 2 mm. Midline structures demonstrate normal morphology. The craniocervical junction appears within normal limits. Post contrast images demonstrate no abnormal enhancement. The dural venous sinuses appear pa tent. The visualized sinuses demonstrate scant mucosal thickening in the left maxillary sinus and mil d mucosal thickening of the ethmoid sinuses. There is also mild leftward nasal septal deviation. Lizz nicole of the paranasal sinuses and mastoid air cells are well aerated. Are clear and the globes are i ntact. IMPRESSION: 1. Few predominantly subcortical foci of nonspecific white matter change measuring up to 2 mm. These can be seen in the setting of migraines, demyelinating disease or early chronic microangiopathy. 2. Overall mild paranasal sinus disease and minimal leftward nasal septal deviation. 3. No evidence of infarct, midline shift or mass effect.
== END | disposition home or self-care (01) ==
LOC: RADMRIMAIN 10:15
PROVIDERS: ATTEND Family Medicine
DX: R90.89 Other abnormal findings on diagnostic imaging of central nervous system (principal); R51 Headache
CPT/HCPCS: 70551

== ENCOUNTER → 2018-08-13 | Outpatient (CLI) | payer BC ==
--- NOTE | 2018-08-13 10:04 | US ---
EXAMINATION TYPE: US renal artery duplex complet DATE OF EXAM: 08/13/2018 COMPARISON: NONE CLINICAL HISTORY: I10 Hypertension. MEASUREMENTS: RENAL SIZE: Rt Kidney: 10.9 x 5.4 x 5.1cm Lt Kidney: 11.7 x 6.1 x 5.4cm RESISTANCE INDEX Right: 0.64 Left: 0.67 RA/AO RATIO (< 3.5 ) Right: 2.5 Left: 2.3 RA VELOCITY ( < 180 cm/s) Right: 195 Left: 179 Patient of large body habitus, technically difficult study. Unable to follow renal artery in its entirety due to overlying bowel gas and large body habitus. Unab le to see aorta in its entirety, portions visualized wnl. Elevated velocity seen in right mid renal artery without elevated ratio, otherwise velocities wnl. Study limited IMPRESSION: Limited examination due to patient body habitus. Velocity on the right approaches criteria but does n ot yet meet criteria for renal arterial stenosis.
== END | disposition home or self-care (01) ==
LOC: RADUSWWP 07:55
PROVIDERS: ATTEND Internal Medicine
DX: I10 Essential (primary) hypertension (principal)
CPT/HCPCS: 93975

== ENCOUNTER → 2019-01-30 | Outpatient (CLI) | payer BC ==
[2019-01-30 13:01] LABS: Appearance,Urine Clear (Clear); Bilirubin,Urine Negative (Negative); Blood,Urine Negative (Negative); Color,Urine Yellow; Glucose,Urine (UA) Trace (Negative); Ketones,Urine Negative (Negative); Leukocyte Esterase,Urine Negative (Negative); Nitrite,Urine Negative (Negative); Protein,Urine Negative (Negative); Specific Gravity,Urine 1.017 (1.001-1.035); Urobilinogen,Urine <2.0 mg/dL (<2.0)
[2019-01-30 19:19] LABS: African American GFR (CKD) 114.1 (60.0-200.0); Albumin 4.7 g/dL (3.80-4.90); Albumin/Globulin Ratio 2.04 (1.60-3.17); Anion Gap 9.1 mmol/L (4.00-12.00); Calcium 9.8 mg/dL (8.7-10.3); Carbon Dioxide 29.9 mmol/L (21.6-31.8); Globulin 2.3 g/dL (1.6-3.3); Magnesium 1.7 mg/dL (1.5-2.4); Non-African American GFR(CKD) 98.5 (60.0-200.0); Phosphorus 1.9 mg/dL (2.4-5.1); Potassium 3.4 mmol/L (3.5-5.5); Total Bilirubin 0.4 mg/dL (0.3-1.2); Uric Acid 5.8 mg/dL (3.7-8.7)
[2019-02-06 13:36] LABS: Metanephrine, Free <25 pg/mL (< OR = 57); Normetanephrine, Free 51 pg/mL (< OR = 148); Total, Free (MN + NMN) 51 pg/mL (< OR = 205)
== END | disposition home or self-care (01) ==
LOC: LABWHC1 12:22
PROVIDERS: ATTEND Internal Medicine
DX: I10 Essential (primary) hypertension (principal); N39.0 Urinary tract infection, site not specified; E55.9 Vitamin D deficiency, unspecified; M10.9 Gout, unspecified
CPT/HCPCS: 36415; 80053; 81003; 82088; 82306; 82530; 82533; 83735; 83835; 84100; 84244; 84550

== ENCOUNTER 2019-09-16 22:10 | Emergency (ER) | payer BC ==
[2019-09-16 22:15] VITALS: TEMP 98.2
[2019-09-16] MEDS ORDERED: methylPREDNISolone SOD SUCCI 125 MG/2 ML VIAL IV STA (22:26)
[2019-09-16] MEDS ORDERED: FAMOTIDINE 20 MG/2 ML VIAL IV STA (22:27)
[2019-09-16] MEDS ORDERED: diphenhydrAMINE 50 MG/ML 1 ML VIAL IVP STA (22:27)
--- NOTE | 2019-09-16 23:39 | ED ---
ENT HPI - General Chief complaint: ENT Stated complaint: Throat Swelling up Time Seen by Provider: 09/16/19 22:23 Source: patient Mode of arrival: ambulatory Limitations: no limitations - History of Present Illness Initial comments: 34-year-old male presenting for chief complaint of sensation of throat fullness. Patient states that on and off for months he'll have an occasional day especially in the mornings where he feels like his uvula is swollen. Patient states this occurred around 4 PM today. He states usually happens in the morning he is concerned possibly has sleep apnea as he snores a lot. Patient denies any sore throat noted exudates on inspection of his own throat fever chills or general malaise. Patient denies any swelling of the lips or tongue or new medications. Patient denies any difficulty breathing tolerating oral secretions or any other complaints at this time he states it feels as though is getting better Remaining ROS (-). Patient appears well on arrival. - Related Data Home Medications Medication Instructions Recorded Confirmed Ergocalciferol (Vitamin D2) 50,000 unit PO Q30D 09/16/19 09/16/19 [Drisdol] Metoprolol Succinate [Toprol XL] 100 mg PO DAILY 09/16/19 09/16/19 Potassium Chloride ER [K-Dur 10] 10 meq PO DAILY 09/16/19 09/16/19 amLODIPine [Norvasc] 10 mg PO DAILY 09/16/19 09/16/19 hydrALAZINE HCL [Apresoline] 50 mg PO TID 09/16/19 09/16/19 Previous Rx's Medication Instructions Recorded Hydrochlorothiazide [Hydrodiuril] 25 mg PO DAILY #30 tab 05/11/18 predniSONE 50 mg PO DAILY 4 Days #4 tablet 09/16/19 Allergies Allergy/AdvReac Type Severity Reaction Status Date / Time HERMILA Inhibitors Allergy Swelling Verified 09/16/19 22:51 benazepril [From Lotrel] Allergy Swelling Verified 09/16/19 22:51 Review of Systems ROS Statement: Those systems with pertinent positive or pertinent negative responses have been documented in the HPI. ROS Other: All systems not noted in ROS Statement are negative. Past Medical History Past Medical History: Hypertension Additional Past Medical History / Comment(s): Pt states as a child he was getting bruising and had a work up that showed low platlets-has never happened again. History of Any Multi-Drug Resistant Organisms: None Reported Past Surgical History: No Surgical Hx Reported Past Anesthesia/Blood Transfusion Reactions: Unable to Obtain Additional Past Anesthesia/Blood Transfusion Reaction / Comment(s): Pt has never had surgery. Past Psychological History: No Psychological Hx Reported Smoking Status: Former smoker Past Alcohol Use History: None Reported Past Drug Use History: None Reported - Past Family History Father Family Medical History: CVA/TIA, Hypertension Additional Family Medical History / Comment(s): Father of a CVA at the age of 58yrs. Mother Family Medical History: No Reported History Additional Family Medical History / Comment(s): Mother is healthy General Exam - General Exam Comments Initial Comments: General: The patient is awake and alert, in no distress, and does not appear acutely ill. Eye: +3 mm pupils are equal, round and reactive to light, extra-ocular movements are intact. No nystagmus. There is normal conjunctiva bilaterally. No signs of icterus. Ears, nose, mouth and throat: There are moist mucous membranes and no oral lesions. Very mild swelling of the uvula and no exudates tonsillar enlargement. No tripoding no drooling tolerating oral secretions without difficulty. No hoarseness or muffling of the voice. Neck: The neck is supple, there is no tenderness or JVD. Musculoskeletal: Normal ROM, no tenderness. Strength 5/5. Sensation intact. Radial pulses equal bilaterally 2+. Neurological: A&O x 3. CN II-XII intact grossly, There are no obvious motor or sensory deficits. Coordination appears grossly intact. Speech is normal. Skin: Skin is warm and dry and no rashes or lesions are noted. Psychiatric: Cooperative, appropriate mood & affect, normal judgment. Limitations: no limitations Course Vital Signs 09/16/19 09/16/19 22:11 23:46 Temperature 98.2 F Pulse Rate 96 Respiratory 18 16 Rate Blood Pressure 163/97 O2 Sat by Pulse 100 Oximetry Medical Decision Making - Medical Decision Making Throat exam mild uvulitis present, given bendaryl pepcid solumedtrol. No lip or tongue swelling. No signs of airway compromise on PE. Symptoms improving. Patietn will be discharge [facility] recommendation for sleep study given snoring history and multi slide machine tender. No knew medications no signs of analphylaxis. No rashes, wheezing, abdominal pain or vomiting. patient discharged appearing well after discussing the case with Dr. Clayton Disposition Clinical Impression: Uvulitis Disposition: HOME SELF-CARE Condition: Good Additional Instructions: Please use medication as discussed. Please follow-up with family doctor in the next 2 days , recommend multi slide machine tender follow-up and possible sleep study as discussed. Please return to emergency room if the symptoms increase or worsen or for any other concerns. Prescriptions: predniSONE 50 mg PO DAILY 4 Days #4 tablet Is patient prescribed a controlled substance at d/c from ED?: No Time of Disposition: 23:38
[2019-09-17 00:19] VITALS: BP 142/79; PULSE 82; RESP 18
== END 2019-09-17 00:15 | disposition home or self-care (01) ==
LOC: EC 22:10
DX: K12.2 Cellulitis and abscess of mouth (principal); I10 Essential (primary) hypertension; Z79.899 Other long term (current) drug therapy; Z88.8 Allergy status to other drugs, medicaments and biological substances; Z87.891 Personal history of nicotine dependence
CPT/HCPCS: 99283; J1200; J2930

== ENCOUNTER 2019-09-19 20:02 | Emergency (ER) | payer BC ==
[2019-09-19 20:11] VITALS: TEMP 98.4
[2019-09-19] MEDS ORDERED: LORATADINE 10 MG TAB PO STA (20:35)
--- NOTE | 2019-09-19 20:57 | XR ---
EXAMINATION TYPE: XR soft tissue neck DATE OF EXAM: 09/19/2019 COMPARISON: None HISTORY: 34-year-old male sore throat and throat swelling TECHNIQUE: 2 views FINDINGS: No narrowing of the subglottic airway. No prevertebral soft tissue swelling. Nasopharyngeal and oroph aryngeal airways are patent. No abnormal epiglottic thickening. Multiple advanced dental caries are p resent throughout the visualized teeth. IMPRESSION: 1. Multiple advanced dental caries throughout the visualized teeth. 2. No prevertebral soft tissue swelling or airway compromise identified.
--- NOTE | 2019-09-19 21:12 | ED ---
General Adult HPI - General Chief complaint: ENT Stated complaint: Throat swelling Time Seen by Provider: 09/19/19 20:16 Source: patient, family Mode of arrival: ambulatory Limitations: no limitations - History of Present Illness Initial comments: 34-year-old male patient presents to the emergency department today for evaluation of sore throat and throat swelling. Patient states he was seen and evaluated on Sunday for similar symptoms and was given prednisone. Patient states over the last couple days he feels like his symptoms are worsening again. Denies any difficulty breathing. Denies difficulty swallowing. He states he has had this problem in the past and it is caused from uvula swelling. Denies any fever or chills. Denies neck pain or headache. Denies nasal congestion or drainage. Patient denies any recent rash, cough, chest pain, abdominal pain, nausea, vomiting, diarrhea, constipation, back pain, numbness, tingling, dizziness, weakness, hematuria, dysuria, urinary urgency, urinary frequency, headache, visual changes, or any other complaints. - Related Data Home Medications Medication Instructions Recorded Confirmed Ergocalciferol (Vitamin D2) 50,000 unit PO Q30D 09/16/19 09/16/19 [Drisdol] Metoprolol Succinate [Toprol XL] 100 mg PO DAILY 09/16/19 09/16/19 Potassium Chloride ER [K-Dur 10] 10 meq PO DAILY 09/16/19 09/16/19 amLODIPine [Norvasc] 10 mg PO DAILY 09/16/19 09/16/19 hydrALAZINE HCL [Apresoline] 50 mg PO TID 09/16/19 09/16/19 Previous Rx's Medication Instructions Recorded Hydrochlorothiazide [Hydrodiuril] 25 mg PO DAILY #30 tab 05/11/18 predniSONE 50 mg PO DAILY 4 Days #4 tablet 09/16/19 Loratadine [Claritin] 10 mg PO DAILY #30 tablet 09/19/19 Allergies Allergy/AdvReac Type Severity Reaction Status Date / Time HERMILA Inhibitors Allergy Swelling Verified 09/19/19 20:10 benazepril [From Lotrel] Allergy Swelling Verified 09/19/19 20:10 Review of Systems ROS Statement: Those systems with pertinent positive or pertinent negative responses have been documented in the HPI. ROS Other: All systems not noted in ROS Statement are negative. Past Medical History Past Medical History: Hypertension Additional Past Medical History / Comment(s): Pt states as a child he was getting bruising and had a work up that showed low platlets-has never happened again. History of Any Multi-Drug Resistant Organisms: None Reported Past Surgical History: No Surgical Hx Reported Past Anesthesia/Blood Transfusion Reactions: Unable to Obtain Additional Past Anesthesia/Blood Transfusion Reaction / Comment(s): Pt has never had surgery. Past Psychological History: No Psychological Hx Reported Smoking Status: Former smoker Past Alcohol Use History: None Reported Past Drug Use History: None Reported - Past Family History Father Family Medical History: CVA/TIA, Hypertension Additional Family Medical History / Comment(s): Father of a CVA at the age of 58yrs. Mother Family Medical History: No Reported History Additional Family Medical History / Comment(s): Mother is healthy General Exam Limitations: no limitations General appearance: alert, in no apparent distress, other (This is a well- developed, well-nourished adult male patient in no acute distress. Vital signs upon presentation temperature 98.4F, pulse 102, respirations 20, blood pressure 152/88, pulse ox 98% on room air.) Eye exam: Present: normal appearance, PERRL, EOMI. Absent: scleral icterus, conjunctival injection, periorbital swelling ENT exam: Present: normal exam, normal oropharynx, mucous membranes moist Respiratory exam: Present: normal lung sounds bilaterally. Absent: respiratory distress, wheezes, rales, rhonchi, stridor Cardiovascular Exam: Present: regular rate, normal rhythm, normal heart sounds. Absent: systolic murmur, diastolic murmur, rubs, gallop, clicks Neurological exam: Present: alert, oriented X3, CN II-XII intact Psychiatric exam: Present: normal affect, normal mood Skin exam: Present: warm, dry, intact, normal color. Absent: rash Course Vital Signs 09/19/19 09/19/19 20:08 22:02 Temperature 98.4 F Pulse Rate 102 H 83 Respiratory 20 18 Rate Blood Pressure 152/88 135/80 O2 Sat by Pulse 98 95 Oximetry Medical Decision Making - Medical Decision Making 34-year-old male patient presents to the emergency department today for evaluation of throat swelling. Patient denied any difficulty breathing or swallowing. Physical examination is unremarkable. The oropharynx appears normal with no swelling over the uvula, tonsils are symmetric with no evidence for tonsillar abscess. He is afebrile. Strep screen is negative. Soft tissue neck x-ray was negative. Patient is currently taking steroids, he is urged to continue these. He is given a prescription for Claritin. He is instructed to follow-up with the ENT specialist in his primary care physician for further evaluation. Return parameters were discussed in detail. He verbalizes understanding and agrees with this plan. - Lab Data Lab Results 09/19/19 Range/Units 21:02 Group A Strep Rapid Negative (Negative) - Radiology Data Radiology results: report reviewed, image reviewed 2 views of the soft tissues of the neck was obtained. Report was reviewed in its entirety. Impression by Dr. Drummond shows multiple advanced dental caries throughout the visualized teeth. No prevertebral soft tissue swelling or airway compromise is identified. Disposition Clinical Impression: Throat swelling Disposition: HOME SELF-CARE Condition: Good Instructions (If sedation given, give patient instructions): Allergies (ED) Additional Instructions: Take medication as directed. Follow up with ENT and your primary care physician for recheck in 1-2 days. Discuss sleep study for possible sleep apnea. Take allergy medication as a trial to see if this improves your symptoms. Return to the emergency department immediately for any new, worsening, or concerning symptoms Prescriptions: Loratadine [Claritin] 10 mg PO DAILY #30 tablet Is patient prescribed a controlled substance at d/c from ED?: No Referrals: Kiki Montes MD [Primary Care Provider] - 1-2 days Time of Disposition: 21:56
[2019-09-19] MEDS ORDERED: DEXAMETHASONE SOD PHOSPHATE 10 MG/ML 1 ML VIAL IM STA (21:56)
[2019-09-19 22:03] VITALS: BP 135/80; PULSE 83; RESP 18
== END 2019-09-19 22:06 | disposition home or self-care (01) ==
LOC: EC 20:02
DX: M79.89 Other specified soft tissue disorders (principal); I10 Essential (primary) hypertension; Z79.899 Other long term (current) drug therapy; Z87.891 Personal history of nicotine dependence; Z88.8 Allergy status to other drugs, medicaments and biological substances
CPT/HCPCS: 87081; 87430; 70360; 96372; 99283; J1100

== ENCOUNTER → 2020-04-15 | Outpatient (CLI) | payer BC | END | disposition home or self-care (01) | LOC: LABWHC1 12:15 | PROVIDERS: ATTEND Family Medicine | DX: R50.9 Fever, unspecified (principal); R05 Cough | CPT/HCPCS: U0003; C9803; U0005 ==

== ENCOUNTER 2020-04-21 23:44 | Emergency (ER) | payer BC ==
--- NOTE | 2020-04-22 00:09 | ED ---
ENT HPI - General Chief complaint: Dental/Oral Stated complaint: Dental/Facial Pain Time Seen by Provider: 04/21/20 23:52 Source: patient Mode of arrival: ambulatory Limitations: no limitations - History of Present Illness Initial comments: Patient is a 34-year-old male presenting to the emergency Department with complaints of left-sided dental pain that started this morning. Patient states when he woke up this morning he noticed little bit of pain in the left upper side and when he looked in the near he noticed a little bit of swelling as well. He states that for the last 2 days he's been having a low-grade temperature however he was just recently diagnosed with Covid. Patient states he has been feeling well from this, he denies any chest pain or shortness of breath, he states his cough has been improving. He has been taking ibuprofen for the fever. He did not take any today. Patient states he did have an appointment with his dentist months ago but it was canceled secondary to Covid. He denies any nausea or vomiting, denies any ear pain or headache. - Related Data Home Medications Medication Instructions Recorded Confirmed Ergocalciferol (Vitamin D2) 50,000 unit PO Q30D 09/16/19 09/16/19 [Drisdol] Metoprolol Succinate [Toprol XL] 100 mg PO DAILY 09/16/19 09/16/19 Potassium Chloride ER [K-Dur 10] 10 meq PO DAILY 09/16/19 09/16/19 amLODIPine [Norvasc] 10 mg PO DAILY 09/16/19 09/16/19 hydrALAZINE HCL [Apresoline] 50 mg PO TID 09/16/19 09/16/19 Previous Rx's Medication Instructions Recorded hydroCHLOROthiazide [Hydrodiuril] 25 mg PO DAILY #30 tab 05/11/18 predniSONE 50 mg PO DAILY 4 Days #4 tablet 09/16/19 Loratadine [Claritin] 10 mg PO DAILY #30 tablet 09/19/19 Penicillin V Potassium [Pen Vee K] 500 mg PO QID 7 Days #28 tablet 04/22/20 Allergies Allergy/AdvReac Type Severity Reaction Status Date / Time HERMILA Inhibitors Allergy Swelling Verified 04/21/20 23:51 benazepril [From Lotrel] Allergy Swelling Verified 04/21/20 23:51 Review of Systems ROS Statement: Those systems with pertinent positive or pertinent negative responses have been documented in the HPI. ROS Other: All systems not noted in ROS Statement are negative. Past Medical History Past Medical History: Hypertension Additional Past Medical History / Comment(s): Pt states as a child he was getting bruising and had a work up that showed low platlets-has never happened again. History of Any Multi-Drug Resistant Organisms: None Reported Past Surgical History: No Surgical Hx Reported Past Anesthesia/Blood Transfusion Reactions: Unable to Obtain Additional Past Anesthesia/Blood Transfusion Reaction / Comment(s): Pt has never had surgery. Past Psychological History: No Psychological Hx Reported Smoking Status: Former smoker Past Alcohol Use History: None Reported Past Drug Use History: None Reported - Past Family History Father Family Medical History: CVA/TIA, Hypertension Additional Family Medical History / Comment(s): Father of a CVA at the age of 58yrs. Mother Family Medical History: No Reported History Additional Family Medical History / Comment(s): Mother is healthy General Exam - General Exam Comments Initial Comments: GENERAL: Patient is well-developed and well-nourished. Patient is nontoxic and in no acute distress. HEAD: Atraumatic, normocephalic. EYES: Pupils equal round and reactive to light, extraocular movements intact, sclera anicteric, conjunctiva are normal. Eyelids were unremarkable. ENT: TMs normal, nares patent, oropharynx clear without exudates. Moist mucous membranes. There is some mild left sided facial swelling, no overlying erythema, no pain with palpation of the cheek. Patient does have many dental caries and fractured teeth on the upper left side. There is no obvious dental abscess seen at this time. NECK: Normal range of motion, supple without lymphadenopathy or JVD. LUNGS: Unlabored respirations. Breath sounds clear to auscultation bilaterally and equal. No wheezes rales or rhonchi. HEART: Regular rate and rhythm without murmurs, rubs or gallops. ABDOMEN: Soft, nontender, normoactive bowel sounds. No guarding, no rebound. No masses appreciated. : Deferred MUSCULOSKELETAL: Normal extremities with adequate strength and normal range of motion, no pitting or edema. No clubbing or cyanosis. NEUROLOGICAL: Patient is alert and oriented x 3. Motor and sensory are also intact. Cranial nerves II through XII grossly intact. Symmetrical smile. Normal speech, normal gait. PSYCH: Normal mood, normal affect. SKIN: Warm, Dry, normal turgor, no rashes or lesions noted. Limitations: no limitations Course Vital Signs 04/21/20 04/22/20 23:49 00:27 Temperature 100.1 F H 98.9 F Pulse Rate 114 H 95 Respiratory 20 18 Rate Blood Pressure 148/87 141/89 O2 Sat by Pulse 97 96 Oximetry Medical Decision Making - Medical Decision Making Patient is a 34-year-old male here for left-sided dental pain and some mild facial swelling that he noticed today. Patient was also recently diagnosed with Covid 10 days ago. He did arrive febrile at 100.1 however this was rechecked at discharge and was normal at 98.9. He states he has not had a fever since last 3 days. He feels like he has been recovering well from a Covid, no shortness of breath, no chest pain and cough is improving. On exam patient has several decayed teeth in the upper left side, no visible dental abscess seen at this time. I will start patient on penicillin secondary to possible dental abscess. Dose given in the ER. Patient will follow up with his dentist. Strict return parameters were discussed with the patient and he verbalized understanding. Case discussed with Dr. Clayton. Disposition Clinical Impression: Dental abscess, Dental caries Disposition: HOME SELF-CARE Condition: Stable Instructions (If sedation given, give patient instructions): Dental Abscess (ED) Additional Instructions: Please return to the Emergency Department if symptoms worsen or any other concerns. Take antibiotics as prescribed. Please follow-up with your dentist as discussed. Prescriptions: Penicillin V Potassium [Pen Vee K] 500 mg PO QID 7 Days #28 tablet Is patient prescribed a controlled substance at d/c from ED?: No Referrals: Kiki Montes MD [Primary Care Provider] - 1-2 days
[2020-04-22] MEDS ORDERED: PENICILLIN VK 500MG STARTER 4 TAB BTL PO STA (00:19)
[2020-04-22 00:29] VITALS: BP 141/89; PULSE 95; RESP 18; TEMP 98.9
== END 2020-04-22 00:27 | disposition home or self-care (01) ==
LOC: EC 23:44
DX: K04.7 Periapical abscess without sinus (principal); K02.9 Dental caries, unspecified; U07.1 COVID-19; S02.5XXA Fracture of tooth (traumatic), initial encounter for closed fracture; I10 Essential (primary) hypertension; Z79.899 Other long term (current) drug therapy; Z88.8 Allergy status to other drugs, medicaments and biological substances; Z87.891 Personal history of nicotine dependence; X58.XXXA Exposure to other specified factors, initial encounter
CPT/HCPCS: 99282

== ENCOUNTER → 2022-02-14 | Outpatient (CLI) | payer OTHER ==
--- NOTE | 2022-02-14 17:09 | XR ---
EXAMINATION TYPE: XR shoulder complete LT DATE OF EXAM: 02/14/2022 4:56 PM INDICATION: Patient age:Male; 36 years old; Reason for study: S46.012A STRAIN OF MUSC/TEND THE ROTATOR CUFF OF L; COMPARISON: None TECHNIQUE: The left shoulder was examined in AP, internally rotated and scapular Y projections. . FINDINGS: No evidence of acute osseous pathology, joint dislocation, or soft tissue swelling. The remaining por tions of the visualized chest are unremarkable. IMPRESSION: No acute osseous pathology.
== END | disposition home or self-care (01) ==
LOC: RADXRMAIN 16:30
PROVIDERS: ATTEND Emergency Medicine
DX: S46.012A Strain of muscle(s) and tendon(s) of the rotator cuff of left shoulder, initial encounter (principal)

== ENCOUNTER → 2023-05-23 | Outpatient (CLI) | payer OTHER ==
--- NOTE | 2023-05-23 14:43 | XR ---
EXAMINATION TYPE: XR cervical spine comp DATE OF EXAM: 05/23/2023 COMPARISON: NONE HISTORY: Pain TECHNIQUE: Four views are submitted. FINDINGS: The odontoid is intact. There are no compression deformities. The prevertebral soft tissue structur es are within normal limits. Alignment demonstrates the level C7. IMPRESSION: 1. No abnormality as visualized.
--- NOTE | 2023-05-23 14:45 | XR ---
EXAMINATION TYPE: XR shoulder complete RT DATE OF EXAM: 05/23/2023 COMPARISON: NONE HISTORY: Pain TECHNIQUE: Three views are submitted. FINDINGS: The osseous structures are intact. There is no acute fracture or dislocation. Mild AC joint arthropa thy. IMPRESSION: 1. No acute process.
--- NOTE | 2023-05-23 14:48 | XR ---
EXAMINATION TYPE: XR chest 2V DATE OF EXAM: 05/23/2023 COMPARISON: NONE TECHNIQUE: PA and lateral views submitted. HISTORY: Pain FINDINGS: The lungs are clear and there is no pneumothorax, pleural effusion, or focal pneumonia. Heart size normal and no overt failure. Osseous structures and. IMPRESSION: 1. No acute process.
--- NOTE | 2023-05-23 14:50 | XR ---
EXAMINATION TYPE: XR ribs RT DATE OF EXAM: 05/23/2023 COMPARISON: NONE HISTORY: Pain TECHNIQUE: 4 views of the right ribs are submitted FINDINGS: Visualized lung is clear. Hypertrophic degenerative changes of the spine. Rib cage is intac t with no acute displaced rib fracture. IMPRESSION: No acute displaced rib fracture. If symptoms persist consider short-term follow-up bone s can.
== END | disposition home or self-care (01) ==
LOC: RADXRMAIN 13:49
PROVIDERS: ATTEND Emergency Medicine
DX: S13.4XXA Sprain of ligaments of cervical spine, initial encounter (principal); S43.401A Unspecified sprain of right shoulder joint, initial encounter; S29.019A Strain of muscle and tendon of unspecified wall of thorax, initial encounter; M54.2 Cervicalgia; M25.511 Pain in right shoulder; R07.81 Pleurodynia; X58.XXXA Exposure to other specified factors, initial encounter
CPT/HCPCS: 71046; 72050

== ENCOUNTER 2023-05-31 16:32 | Observation (INO) | payer BC ==
--- NOTE | 2023-05-31 16:54 | ED ---
Chest Pain HPI - General Source: patient, RN notes reviewed Mode of arrival: ambulatory Limitations: no limitations <Shahida Love - Last Filed: 05/31/23 17:10> - History of Present Illness MD Complaint: chest pain Onset/Timin -: hour(s) Onset: during rest Pain Location: left chest, right chest, epigastric Pain Radiation: none Severity: moderate Quality: aching Consistency: constant Improves With: nothing Worsens With: nothing Treatments Prior to Arrival: none <Reginald Ruiz - Last Filed: 06/06/23 09:50> - General Chief Complaint: Chest Pain Stated Complaint: SOB Time Seen by Provider: 05/31/23 16:54 - History of Present Illness Initial Comments: Patient is a 37-year-old male presented to ER with a chief complaint of palpitations and shortness of breath. Patient recently returned from a 5 hour plane ride. Patient also was endorsing 2 out of 10 chest pain. Denies any smoking, history of blood clots or blood thinner use. (Shahida Love) - Related Data Home Medications Medication Instructions Recorded Confirmed Metoprolol Succinate [Toprol XL] 100 mg PO DAILY 09/16/19 06/05/23 Potassium Chloride ER [K-Dur 10] 10 meq PO DAILY 09/16/19 06/05/23 amLODIPine [Norvasc] 10 mg PO DAILY 09/16/19 06/05/23 hydrALAZINE HCL [Apresoline] 50 mg PO TID 09/16/19 06/05/23 Cholecalciferol [Vitamin D3 (25 25 mcg PO DAILY 05/31/23 06/05/23 Mcg = 1000 Iu)] Previous Rx's Medication Instructions Recorded hydroCHLOROthiazide [Hydrodiuril] 25 mg PO DAILY #30 tab 05/11/18 Albuterol Inhaler [Ventolin Hfa 2 puff INHALATION Q4HR PRN #1 each 06/05/23 Inhaler] Albuterol Nebulized [Ventolin 2.5 mg INHALATION QID PRN #75 ml 06/05/23 Nebulized] Allergies Allergy/AdvReac Type Severity Reaction Status Date / Time HERMILA Inhibitors Allergy Swelling Verified 06/05/23 15:54 benazepril [From Lotrel] Allergy Swelling Verified 06/05/23 15:54 Review of Systems ROS Other: All systems not noted in ROS Statement are negative. <Shahida Love - Last Filed: 05/31/23 17:10> ROS Other: All systems not noted in ROS Statement are negative. Constitutional: Denies: fever, chills Respiratory: Denies: cough, dyspnea Cardiovascular: Reports: chest pain, edema. Denies: as per HPI, palpitations, syncope Gastrointestinal: Denies: abdominal pain, nausea, vomiting, diarrhea Genitourinary: Denies: dysuria, hematuria Musculoskeletal: Denies: back pain Skin: Denies: rash, lesions Neurological: Denies: weakness, numbness <KailajeromeReginald - Last Filed: 06/06/23 09:50> ROS Statement: Those systems with pertinent positive or pertinent negative responses have been documented in the HPI. EKG Findings - EKG Results: EKG: interpreted by KEREN, sinus rhythm (Rate 92 bpm), normal ST/T - Blocks, [place], Hypertrophy, ST Abn: AV and intraventricular conduction: right bundle branch block (fixed/intermittent, complete/incomplete) QRS axis and voltage: left axis deviation (-30 to -90) <SaraReginald - Last Filed: 06/06/23 09:50> Past Medical History Past Medical History: Hypertension Additional Past Medical History / Comment(s): Pt states as a child he was getting bruising and had a work up that showed low platlets-has never happened again. History of Any Multi-Drug Resistant Organisms: None Reported Past Surgical History: No Surgical Hx Reported Past Anesthesia/Blood Transfusion Reactions: Unable to Obtain Additional Past Anesthesia/Blood Transfusion Reaction / Comment(s): Pt has never had surgery. Past Psychological History: No Psychological Hx Reported Smoking Status: Former smoker Past Alcohol Use History: None Reported Past Drug Use History: None Reported - Past Family History Father Family Medical History: CVA/TIA, Hypertension Additional Family Medical History / Comment(s): Father of a CVA at the age of 58yrs. Mother Family Medical History: No Reported History Additional Family Medical History / Comment(s): Mother is healthy <IvanShahida - Last Filed: 05/31/23 17:10> General Exam Limitations: no limitations <OswaldjanelShahida - Last Filed: 05/31/23 17:10> Limitations: no limitations General appearance: alert, in no apparent distress Head exam: Present: atraumatic, normocephalic Eye exam: Present: normal appearance. Absent: scleral icterus, conjunctival i njection Neck exam: Present: normal inspection Respiratory exam: Present: normal lung sounds bilaterally. Absent: respiratory distress, wheezes, rales, rhonchi, stridor, chest wall tenderness, accessory muscle use Cardiovascular Exam: Present: regular rate, normal rhythm, normal heart sounds. Absent: systolic murmur, diastolic murmur, rubs, gallop GI/Abdominal exam: Present: soft. Absent: distended, tenderness, guarding, rebound, rigid, mass Extremities exam: Present: normal capillary refill, pedal edema (Bilateral ankle edema) left), other (NO Palpable cord or Homans sign). Absent: tenderness, calf tenderness Back exam: Present: normal inspection. Absent: CVA tenderness (R), CVA tenderness (L) Neurological exam: Present: alert Skin exam: Present: warm, dry, intact, normal color. Absent: rash <Reginald Ruiz - Last Filed: 06/06/23 09:50> - General Exam Comments Initial Comments: Visual Physical Exam Vital signs reviewed General: Well-appearing, nontoxic, no acute distress. Head: Normocephalic, atraumatic Eyes: PERRLA, EOMI ENT: Airway patent Chest: Nonlabored breathing Skin: No visual rash, normal skin tone Neuro: Alert and oriented 3 Musculoskeletal: No gross abnormalities (Shahida Love) Course Vital Signs 05/31/23 05/31/23 05/31/23 16:44 18:12 20:00 Temperature 98.8 F Pulse Rate 94 74 85 Respiratory 16 18 18 Rate Blood Pressure 147/93 148/89 135/80 O2 Sat by Pulse 99 98 96 Oximetry 05/31/23 05/31/23 06/01/23 21:00 22:00 02:00 Temperature Pulse Rate 96 87 81 Respiratory 18 18 18 Rate Blood Pressure 114/78 108/59 106/71 O2 Sat by Pulse 96 96 95 Oximetry 06/01/23 06/01/23 06/01/23 06:00 08:33 09:46 Temperature Pulse Rate 76 90 90 Respiratory 18 18 18 Rate Blood Pressure 121/79 130/81 132/72 O2 Sat by Pulse 97 96 95 Oximetry 06/01/23 10:00 Temperature Pulse Rate 86 Respiratory 18 Rate Blood Pressure 132/74 O2 Sat by Pulse 94 L Oximetry Chest Pain [facility] <Shahida Love - Last Filed: 05/31/23 17:10> <SaraReginald - Last Filed: 06/06/23 09:50> - [facility] I performed the quick note portion of this chart. Electronically signed by Shahida Love PA-C (Shahida Love) This patient is a 37-year-old man who returned from [place] yesterday via plane. He then began to experience left-sided chest pain. The patient does have posit zia D-dimer however the dye load on CT scan is suboptimal. After discussion of risks benefits, patient will be started on heparin, will have hydration to protect kidneys and then may repeat CT tomorrow or possibly VQ scan. Case discussed with admitting physician. The patient did have CT scan of the chest which I interpreted as not revealing definite pulmonary embolism. There is right-sided pleural effusion. The patient had chest x-ray which I interpreted as negative for acute infiltrate, pneumothorax, congestive heart failure. Was pt. sent in by a medical professional or institution ([facility], [facility], urgent care, hospital, or group home...) When possible be specific @ -[No] Did you speak to anyone other than the patient for history (EMS, parent, family, police, friend...)? What history was obtained from this source @ -[No] Did you review nursing and triage notes (agree or disagree)? Why? @ -[I reviewed and agree with nursing and triage notes] Were old charts reviewed (outside hosp., previous admission, EMS record, old EKG, old radiological studies, urgent care reports/EKG's, group home records)? Report findings @ -[No old charts were reviewed] Differential Diagnosis (chest pain, altered mental status, abdominal pain women, abdominal pain men, vaginal bleeding, weakness, fever, dyspnea, syncope, headache, dizziness, GI bleed, back pain, seizure, CVA, palpatations, mental health, musculoskeletal)? @ -[Differential Chest Pain: Stable Angina, Unstable Angina, STEMI, NSTEMI Aortic Dissection, Pneumothorax, Musculoskeletal, Esophageal Spasm GERD, Cholecystitis, Pancreatitis, Zoster, this is not meant to be an all-inclusive list. EKG interpreted by me (3pts min.). @ -[As above] X-rays interpreted by me (1pt min.). @ -[None done] CT interpreted by me (1pt min.). @ -[I interpreted as above U/S interpreted by me (1pt. min.). @ -[None done] What testing was considered but not performed or refused? (CT, X-rays, U/S, labs)? Why? @ -[None] What meds were considered but not given or refused? Why? @ -[None] Did you discuss the management of the patient with other professionals (professionals i.e. , PA, [facility], lab, RT, psych nurse, dialysis social worker, magnetic doctor, teacher, motorcycle police officer, pillowcase turner)? Give summary @ -[Discussed with admitting physician and treatment recommendations incorporated Was smoking cessation discussed for >3mins.? @ -[No] Was critical care preformed (if so, how long)? @ -[No] Were there social determinants of health that impacted care today? How? (Homelessness, low income, unemployed, alcoholism, drug addiction, transportation, low edu. Level, literacy, decrease access to med. care, long term, rehab)? @ -[No] Was there de-escalation of care discussed even if they declined (Discuss DNR or withdrawal of care, Hospice)? DNR status @ -[No] What co-morbidities impacted this encounter? (DM, HTN, Smoking, COPD, CAD, Cancer, CVA, ARF, Chemo, Hep., AIDS, mental health diagnosis, sleep apnea, morbid obesity)? @ -[None] Was patient admitted / discharged? Hospital course, mention meds given and route, prescriptions, significant lab abnormalities, going to OR and other pertinent info. @ -[ Undiagnosed new problem with uncertain prognosis? @ -[No] Drug Therapy requiring intensive monitoring for toxicity (Heparin, Nitro, Insulin, Cardizem)? @ -[No] Were any procedures done? @ -[No] Diagnosis/symptom? @ -[Acute pleuritic chest pain, possible pulmonary embolism Acute, or Chronic, or Acute on Chronic? @ -[Acute Uncomplicated (without systemic symptoms) or Complicated (systemic symptoms)? @ -[Uncomplicated Side effects of treatment? @ -[No] Exacerbation, Progression, or Severe Exacerbation? @ -[No] Poses a threat to life or bodily function? How? (Chest pain, [place], [place], pneumonia, PE, COPD, DKA, ARF, appy, cholecystitis, CVA, Diverticulitis, Homicidal, Suicidal, threat to staff... and all critical care pts) @ -[Yes, further workup required (Reginald Ruiz) Disposition <Shahida Love - Last Filed: 05/31/23 17:10> Is patient prescribed a controlled substance at d/c from ED?: No <Reginald Ruiz - Last Filed: 06/06/23 09:50> Clinical Impression: Chest pain Disposition: ADMITTED IP TO THIS HOSP Condition: Fair
[2023-05-31 17:03] VITALS: TEMP 98.8
[2023-05-31 17:18] LABS: HCT 39.8 % (39.0-53.0); HGB 13.6 gm/dL (13.0-17.5); MCH 28.5 pg (25.0-35.0); MCHC 34.2 g/dL (31.0-37.0); MCV 83.5 fL (80.0-100.0); Mean Platelet Volume 7.9; Platelet Count 370 k/uL (150-450); RBC 4.76 m/uL (4.30-5.90); RDW 13.2 % (11.5-15.5); WBC 7.4 k/uL (3.8-10.6)
[2023-05-31 17:36] LABS: ALT 43 U/L (4-49); AST 32 U/L (17-59); African American GFR (CKD) >90 (>60 ml/min/1.73 sqM); Albumin 4.6 g/dL (3.5-5.0); Alkaline Phosphatase 106 U/L (38-126); Anion Gap 8 mmol/L; Blood Urea Nitrogen 16 mg/dL (9-20); Calcium 9.4 mg/dL (8.4-10.2); Carbon Dioxide 29 mmol/L (22-30); Chloride 101 mmol/L (98-107); Glucose 111 mg/dL (74-99); Non-African American GFR(CKD) >90 (>60 ml/min/1.73 sqM); Sodium 138 mmol/L (137-145); Total Bilirubin 0.6 mg/dL (0.2-1.3); Total Protein 8.1 g/dL (6.3-8.2)
--- NOTE | 2023-05-31 17:38 | XR ---
EXAMINATION TYPE: XR chest 2V DATE OF EXAM: 05/31/2023 COMPARISON: 05/31/2023 INDICATION: Dyspnea TECHNIQUE: Frontal and lateral views of the chest are obtained. FINDINGS: The heart size is normal. The pulmonary vasculature is normal. The lungs are clear. IMPRESSION: 1. No acute pulmonary process.
[2023-05-31 17:42] LABS: Partial Thromboplastin Time 25.7 sec (22.0-30.0); Prothrombin Time 10.7 sec (10.0-12.5)
[2023-05-31 18:31] VITALS: RESP 18
--- NOTE | 2023-05-31 19:24 | US ---
EXAMINATION TYPE: US venous doppler duplex LE RT DATE OF EXAM: 05/31/2023 5:35 PM COMPARISON: NONE CLINICAL INDICATION: Male, 37 years old with history of Leg swelling, possible DVT; Pt states he has been having leg swelling for a year. Pt states he had a 4 hour flight yesterday and then had SOB SIDE PERFORMED: Right TECHNIQUE: The lower extremity deep venous system is examined utilizing real time linear array sonog cherelle with graded compression, doppler sonography and color-flow sonography. VESSELS IMAGED: Common Femoral Vein Deep Femoral Vein Greater Saphenous Vein * Femoral Vein Popliteal Vein Small Saphenous Vein * Proximal Calf Veins (* superficial vessels) Right Leg: No evidence for DVT IMPRESSION: 1. Right lower extremity ultrasound negative for deep venous thrombosis.
--- NOTE | 2023-05-31 19:37 | CT ---
CTA CHEST EXAMINATION TYPE: CT chest angio for PE DATE OF EXAM: 05/31/2023 INDICATION: lianet CT DLP: 760.7 mGycm, Automated exposure control for dose reduction was used. CONTRAST: Patient injected with 100ml mL of Isovue 300. COMPARISON: None TECHNIQUE: CT of the chest is performed on a spiral scan at 2 mm thick sections. Study is performed with intravenous contrast timed for evaluation for pulmonary embolism. This will limit additional po rtions of the evaluation. 3-D MIP images reconstructed by the technologist are reviewed on the compu ter in the coronal and sagittal planes. FINDINGS: No persistent filling defects are evident to suggest an acute pulmonary embolism. Contrast timing is suboptimal and smaller pulmonary emboli may not be visualized on this exam No mediastinal or hilar adenopathy enlarged by CT criteria is evident. The ascending aorta diameter at the level of the main pulmonary artery is 3.1 cm. The main pulmonary artery diameter at the bifurcation is 2.8 cm. There is a small right pleural effusion with adjacent compressive atelectasis. Limited CT sections were through the upper abdomen. Upper abdomen appears unremarkable. IMPRESSION: 1. There is poor contrast timing limiting the evaluation for pulmonary embolism. No obvious large montserrat tral pulmonary emboli are evident. Smaller peripheral pulmonary emboli may not be well-visualized. 2. Small right pleural effusion with adjacent compressive atelectasis.
[2023-05-31] MEDS ORDERED: ACETAMINOPHEN TAB 325 MG TAB PO PRN (20:27)
[2023-05-31] MEDS ORDERED: HYDROcodone/APAP 5-325MG 1 EACH TAB PO PRN (20:27)
[2023-05-31] MEDS ORDERED: NALOXONE 0.4 MG/ML 1 ML VIAL IV PRN (20:27)
[2023-05-31] MEDS ORDERED: ONDANSETRON 4 MG/2 ML VIAL IVP PRN (20:27)
[2023-05-31] MEDS ORDERED: MAG HYDROX/AL HYDROX/SIMETH 30 ML CUP PO PRN (20:27)
[2023-05-31] MEDS ORDERED: HEPARIN SODIUM 1,000 UN/ML (10ML VL) IV PRN (20:29)
[2023-05-31] MEDS: HEPARIN SODIUM 1,000 UN/ML (10ML VL) IV ONE (20:57)
[2023-05-31] MEDS: HEPARIN SOD,PORK IN 0.45% NACL 25,000 UNIT in 0.45% NACL 1 250ML.BAG IV SCH (20:57)
[2023-05-31] MEDS: SODIUM CHLORIDE 0.9% 1,000 ML IV SCH (20:58)
--- NOTE | 2023-05-31 22:28 | P.HPIM ---
History of Present Illness H&P Date: 05/31/23 Patient is a 37-year-old male with a PMH of hypertension who presents to the emergency room with complaints of chest pain and lower extremity swelling. Patient reports that he was recently traveling to [place] and took a 5-hour flight with a layover to return home yesterday evening. Reports that he had developed right ankle and calf pain while in [place] a few days ago which was impeding his walking. He did not get up at all during his flight and reports that shortly after his flight landed, and as he made his way into the parking lot, he developed a bilateral lower chest severe pleuritic discomfort, rated at a 8 out of 10. He went home and took some albuterol inhalers which partially relieved his discomfort. He was subsequently seen at a physician's office earlier today where they advised him to go to the emergency room to be evaluated for PE. Patient does report chronic mild bilateral lower extremity edema but notes that the right lower extremity pain was new. He reports the pain has improved to a 2 out of 10 at the time of interview. Denies any prior personal or family history of blood clots. Denies experiencing fever, chills, cough, abdominal pain, nausea, vomiting, diarrhea. Chest CTA in the emergency room was a poor study with no obvious large pulmonary emboli with a small right-sided pleural effusion with compressive atelectasis. Lower extremity Doppler was negative for DVT. EKG revealed sinus rhythm with left axis deviation and a right bundle branch block at 92 bpm as reviewed by me (new when compared to EKG from 2019). Chest x-ray was unremarkable. Laboratory evaluation was remarkable for D-dimer of 5.57 with respiratory viral panel unremarkable and troponin less than 0.012. Patient SpO2 was 99% on room air in the emergency room. ED documentation reviewed and case discussed with ED provider. Review of systems: Pertinent positives and negatives as discussed in HPI, a complete review of systems was performed and all other systems are negative. Physical examination: Vital signs reviewed General: non toxic, no distress, appears at stated age, normal weight Derm: no unusual rashes/lesions, warm Head: atraumatic, normocephalic, symmetric Eyes: EOMI, no lid lag, anicteric sclera, pupils equal round reactive to light ENT: Nose and ears atraumatic Neck: No cervical lymphadenopathy, trachea midline, supple Mouth: no lip lesion, mucus membranes moist Cardiovascular: S1S2 reg, no murmur, positive dorsalis pedis pulse bilateral, right lower extremity 1+ pitting edema, no calf or ankle tenderness on exam Lungs: CTA bilateral, no rhonchi, no rales, no accessory muscle use Abdominal: soft, nontender to palpation, no guarding Ext: muscle strength 5 out of 5 in all 4 extremities grossly, no gross muscle atrophy, no contractures, Neuro: CN II-XI grossly intact, no gross focal neuro deficits Psych: Alert, oriented, appropriate affect Assessment: Pleuritic chest pain with lower extremity edema and recent travel, highly suspicious for provoked acute pulmonary emboli Chronic conditions: Hypertension Imaging: Chest CTA in the emergency room was a poor study with no obvious large pulmonary emboli with a small right-sided pleural effusion with compressive atelectasis. Lower extremity Doppler was negative for DVT. EKG revealed sinus rhythm with left axis deviation and a right bundle branch block at 92 bpm as reviewed by me (new when compared to EKG from 2019). Data Review: Laboratory evaluation was remarkable for D-dimer of 5.57 with respiratory viral panel unremarkable and troponin less than 0.012. Patient SpO2 was 99% on room air in the emergency room. Plan: Heparin infusion initiated. Patient will need to be switched to NOAC pending insurance authorization or is causing the patient's pain Obtain repeat imaging with CT angiogram in a.m. to confirm diagnosis Echocardiogram ordered Continue with home medications Cardiac monitoring DVT prophylaxis: Heparin infusion The patient is admitted with an anticipated less than 2 midnight stay for evaluation of pulmonary embolism CODE STATUS: Full Code Discussed with: Patient Anticipated discharge place: Home Past Medical History Past Medical History: Hypertension Additional Past Medical History / Comment(s): Pt states as a child he was getting bruising and had a work up that showed low platlets-has never happened again. History of Any Multi-Drug Resistant Organisms: None Reported Past Surgical History: No Surgical Hx Reported Past Anesthesia/Blood Transfusion Reactions: Unable to Obtain Additional Past Anesthesia/Blood Transfusion Reaction / Comment(s): Pt has never had surgery. Past Psychological History: No Psychological Hx Reported Smoking Status: Former smoker Past Alcohol Use History: None Reported Past Drug Use History: None Reported - Past Family History Father Family Medical History: CVA/TIA, Hypertension Additional Family Medical History / Comment(s): Father of a CVA at the age of 58yrs. Mother Family Medical History: No Reported History Additional Family Medical History / Comment(s): Mother is healthy Medications and Allergies Home Medications Medication Instructions Recorded Confirmed Type hydroCHLOROthiazide [Hydrodiuril] 25 mg PO DAILY #30 tab 05/11/18 05/31/23 Rx Metoprolol Succinate [Toprol XL] 100 mg PO DAILY 09/16/19 05/31/23 History Potassium Chloride ER [K-Dur 10] 10 meq PO DAILY 09/16/19 05/31/23 History amLODIPine [Norvasc] 10 mg PO DAILY 09/16/19 05/31/23 History hydrALAZINE HCL [Apresoline] 50 mg PO TID 09/16/19 05/31/23 History Cholecalciferol [Vitamin D3 (25 25 mcg PO DAILY 05/31/23 05/31/23 History Mcg = 1000 Iu)] Cyclobenzaprine [Flexeril] 5 mg PO DAILY PRN 05/31/23 05/31/23 History Etodolac [Lodine] 400 mg PO BID PRN 05/31/23 05/31/23 History Allergies Allergy/AdvReac Type Severity Reaction Status Date / Time HERMILA Inhibitors Allergy Swelling Verified 05/31/23 20:50 benazepril [From Lotrel] Allergy Swelling Verified 05/31/23 20:50 Physical Exam Vitals: Vital Signs Temp Pulse Resp BP Pulse Ox 05/31/23 22:00 87 18 108/59 96 05/31/23 21:00 96 18 114/78 96 05/31/23 20:00 85 18 135/80 96 05/31/23 18:12 74 18 148/89 98 05/31/23 16:44 98.8 F 94 16 147/93 99 Intake and Output 05/31/23 05/31/23 05/31/23 06:59 14:59 22:59 Other: Weight 129.274 kg Results CBC & Chem 7: 05/31/23 16:50 05/31/23 16:50 Labs: Abnormal Lab Results - Last 24 Hours (Table) 05/31/23 05/31/23 Range/Units 16:50 16:50 D-Dimer 5.57 H (<0.60) mg/L FEU Glucose 111 H (74-99) mg/dL
[2023-06-01 03:02] LABS: Basophils # (A) 0.1 k/uL (0-0.2); Basophils % (A) 1 %; Eosinophils # (A) 0.5 k/uL (0-0.7); Eosinophils % (A) 6 %; HCT 40.6 % (39.0-53.0); HGB 13.5 gm/dL (13.0-17.5); Lymphocytes # (A) 2.1 k/uL (1.0-4.8); Lymphocytes % (A) 25 %; MCH 28.3 pg (25.0-35.0); MCHC 33.2 g/dL (31.0-37.0); MCV 85.2 fL (80.0-100.0); Mean Platelet Volume 8.1; Monocytes # (A) 0.4 k/uL (0-1.0); Monocytes % (A) 5 %; Neutrophils # (A) 5.3 k/uL (1.3-7.7); Neutrophils % (A) 62 %; Platelet Count 351 k/uL (150-450); RBC 4.76 m/uL (4.30-5.90); RDW 13.1 % (11.5-15.5); WBC 8.6 k/uL (3.8-10.6)
[2023-06-01] MEDS: hydrALAZINE HCL 50 MG TAB PO SCH (08:34)
[2023-06-01] MEDS: hydroCHLOROthiazide 25 MG TAB PO SCH (08:34)
[2023-06-01] MEDS: METOPROLOL SUCCINATE (ER) 100 MG TAB.ER.24H PO SCH (08:34)
[2023-06-01] MEDS: amLODIPine 10 MG TAB PO SCH (08:34)
[2023-06-01 08:51] LABS: African American GFR (CKD) >90 (>60 ml/min/1.73 sqM); Anion Gap 8 mmol/L; Blood Urea Nitrogen 14 mg/dL (9-20); Calcium 9.3 mg/dL (8.4-10.2); Carbon Dioxide 28 mmol/L (22-30); Chloride 104 mmol/L (98-107); Glucose 99 mg/dL (74-99); Non-African American GFR(CKD) >90 (>60 ml/min/1.73 sqM); Potassium 4.3 mmol/L (3.5-5.1); Sodium 140 mmol/L (137-145)
--- NOTE | 2023-06-01 12:46 | CT ---
EXAMINATION TYPE: CT chest angio for PE DATE OF EXAM: 06/01/2023 COMPARISON: 05/31/2023 HISTORY: 37-year-old male SOB, chest pain, recent plane trip TECHNIQUE: Contiguous axial scanning of the chest performed with IV Contrast, patient injected with 1 00 mL of Isovue 300. Coronal and sagittal MIP reconstructions performed. CT DLP: 768.9 mGycm Automated exposure control for dose reduction was used. FINDINGS: Heart normal size without pericardial effusion. No flattening of the interventricular septum or reflu x of contrast into the hepatic veins. Aorta normal caliber with conventional digital subtracting anatomy. No thoracic lymphadenopathy by CT size criteria. Again, there is suboptimal contrast bolus with attenuation of only 170 Hounsfield units. This is impr alonzo from 126 Hounsfield units previously but still suboptimal. No large central pulmonary embolus is seen. Unable to exclude lobar/segmental branch embolus to the left upper lobe, axial image 53 and 54 and coronal series 404 image 27. Ongoing small right pleural effusion with adjacent atelectasis. Mild diffuse bronchial wall thickening could reflect bronchitis or asthma. Otherwise, no new consolid ation. Visualized upper abdomen shows some underlying hepatic steatosis. 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 Normal variant sternal foramen. IMPRESSION: 1. AGAIN, SUBOPTIMAL CONTRAST BOLUS THOUGH IMPROVED FROM YESTERDAY. UNABLE TO EXCLUDE LOBAR AND SEGME NTAL BRANCH EMBOLUS TO THE LEFT UPPER LOBE (AXIAL IMAGE 53 AND 54 AND CORONAL MIP SERIES 404 IMAGE 27 ). ARTIFACT IS POSSIBLE. TREATMENT BASED ON CLINICAL SUSPICION MAY BE NEEDED. 2. ONGOING SMALL RIGHT PLEURAL EFFUSION WITH ADJACENT ATELECTASIS. 3. INCIDENTAL: HEPATIC STEATOSIS. DISH IN THE LOWER THORACIC SPINE.
--- NOTE | 2023-06-01 14:52 | P.DS ---
Providers Date of admission: 05/31/23 20:30 Expected date of discharge: 06/01/23 Attending physician: Fito Daly MD Primary care physician: Kiki [facility] Course: 37-year-old male with a PMH of hypertension who presents to the emergency room with complaints of chest pain and lower extremity swelling. Patient reports that he was recently traveling to [place] and took a 5-hour flight with a layover to return home yesterday evening. Reports that he had developed right ankle and calf pain while in [place] a few days ago which was impeding his walking. Shortly after his flight landed, and as he made his way into the parking lot, he developed a bilateral lower chest severe pleuritic discomfort, rated at a 8 out of 10. He went home and took some albuterol inhalers which partially relieved his discomfort. He was subsequently seen at a physician's office earlier today where they advised him to go to the emergency room to be evaluated for PE. Denies any prior personal or family history of blood clots. Chest CTA in the emergency room was a poor study with no obvious large pulmonary emboli with a small right-sided pleural effusion with compressive atelectasis. Lower extremity Doppler was negative for DVT. EKG revealed sinus rhythm with left axis deviation and a right bundle branch block at 92 bpm (new when compared to EKG from 2019). Chest x-ray was unremarkable. Laboratory evaluation was remarkable for D-dimer of 5.57 with respiratory viral panel unremarkable and troponin less than 0.012. Patient SpO2 was 99% on room air in the emergency room. Patient was started on a heparin drip and admitted for further management. CTA chest was repeated which was again suboptimal, unable to exclude lobar and segmental branch PE to the left upper lobe. V/Q scan was ordered which patient adamantly refused. He did not want any more contract or radioactive particles administered. We discussed the treatment for pulmonary embolus would be anticoagulation for 12 weeks. Patient decided since he was symptom free he would not want to take any blood thinning medication either. We discussed that untreated pulmonary embolus could lead to propogation of the thrombus which could lead to sudden . He is advised to come back to the ED for worsening chest pain, shortness of breath, palpitations or lightheadedness. Vital signs reviewed General: non toxic, no distress, appears at stated age, normal weight Derm: no unusual rashes/lesions, warm Head: atraumatic, normocephalic, symmetric Eyes: EOMI, no lid lag, anicteric sclera ENT: Nose and ears atraumatic Neck: No cervical lymphadenopathy, trachea midline, supple Mouth: no lip lesion, mucus membranes moist Cardiovascular: S1S2 reg, no murmur Lungs: CTA bilateral, no rhonchi, no rales, no accessory muscle use Ext: muscle strength 5 out of 5 in all 4 extremities grossly, no gross muscle atrophy, no contractures, Neuro: no gross focal neuro deficits Psych: Alert, oriented, appropriate affect Discharge Diagnosis: Pleuritic chest pain with lower extremity edema and recent travel, highly suspicious for provoked acute pulmonary emboli Elevated D-Dimer Chronic conditions: Hypertension This complex discharge took 35 minutes to complete. Patient Condition at Discharge: Fair Plan - Discharge Summary New Discharge Prescriptions: Continue hydroCHLOROthiazide [Hydrodiuril] 25 mg PO DAILY #30 tab hydrALAZINE HCL [Apresoline] 50 mg PO TID Potassium Chloride ER [K-Dur 10] 10 meq PO DAILY Metoprolol Succinate [Toprol XL] 100 mg PO DAILY amLODIPine [Norvasc] 10 mg PO DAILY Cholecalciferol [Vitamin D3 (25 Mcg = 1000 Iu)] 25 mcg PO DAILY Discontinued Etodolac [Lodine] 400 mg PO BID PRN PRN Reason: pain Cyclobenzaprine [Flexeril] 5 mg PO DAILY PRN PRN Reason: Muscle Pain Discharge Medication List hydroCHLOROthiazide [Hydrodiuril] 25 mg PO DAILY #30 tab 05/11/18 [Rx] Metoprolol Succinate [Toprol XL] 100 mg PO DAILY 09/16/19 [History] Potassium Chloride ER [K-Dur 10] 10 meq PO DAILY 09/16/19 [History] amLODIPine [Norvasc] 10 mg PO DAILY 09/16/19 [History] hydrALAZINE HCL [Apresoline] 50 mg PO TID 09/16/19 [History] Cholecalciferol [Vitamin D3 (25 Mcg = 1000 Iu)] 25 mcg PO DAILY 05/31/23 [History] Follow up Appointment(s)/Referral(s): Kiki Montes MD [Primary Care Provider] - 1-2 days Discharge Disposition: HOME SELF-CARE
[2023-06-01 15:22] VITALS: BP 137/80; PULSE 78
--- NOTE | 2023-06-01 17:22 | CA ---
Transthoracic Echo Report Name: Albin Wild Age: 37 Gender: M : 1985 Exam Date: 06/01/2023 11:55 Exam Location: [place] [facility] Ht (in): 74 Wt (lb): 285 Ordering Physician: Fito Daly MD Attending/Referring Phys: Curer Acid Drum Loreto Chaudhari RCS Procedure CPT: Indications: PE Cardiac Hx: Technical Quality: Fair Contrast 1: Total Dose (mL): Contrast 2: Total Dose (mL): MEASUREMENTS (Male / Female) Normal Values 2D ECHO LV Diastolic Diameter PLAX 5.9 cm 4.2 - 5.9 / 3.9 - 5.3 cm LV Systolic Diameter PLAX 4.0 cm IVS Diastolic Thickness 1.2 cm 0.6 - 1.0 / 0.6 - 0.9 cm LVPW Diastolic Thickness 1.0 cm 0.6 - 1.0 / 0.6 - 0.9 cm LV Relative Wall Thickness 0.4 RV Internal Dim ED PLAX 4.0 cm LVOT Diameter 2.5 cm LA Volume 67.9 cm??? 18 - 58 / 22 - 52 cm??? LA Volume Index 25.7 cm???/m??? 16 - 28 cm???/m??? DOPPLER AV Peak Velocity 173.4 cm/s AV Peak Gradient 12.0 mmHg AV Mean Velocity 119.5 cm/s AV Mean Gradient 6.3 mmHg AV Velocity Time Integral 31.4 cm LVOT Peak Velocity 127.0 cm/s LVOT Peak Gradient 6.5 mmHg LVOT Velocity Time Integral 23.8 cm LVOT Stroke Volume 115.9 cm??? LVOT Stroke Volume Index 45.9 ml/m??? LVOT Cardiac Index 3992.5 cm???/min???m??? AV Area Cont Eq vti 3.7 cm??? AV Area Cont Eq pk 3.6 cm??? MV Area PHT 6.6 cm??? Mitral E Point Velocity 82.4 cm/s Mitral A Point Velocity 56.5 cm/s Mitral E to A Ratio 1.5 MV Deceleration Time 115.6 ms PV Peak Velocity 103.6 cm/s PV Peak Gradient 4.3 mmHg FINDINGS Left Ventricle Left ventricular ejection fraction is estimated at 55-60 %. Mildly increased septal wall thickness. Left ventricular cavity size normal. No obvious regional wall motion abnormalities. Right Ventricle Normal right ventricular size and function. Unable to determine right ventricular systolic pressure. Right Atrium Normal right atrial size. Left Atrium Mildly increased left atrial volume. Mitral Valve Structurally normal mitral valve. No mitral stenosis. Trace mitral regurgitation. No evidence for mitral valve prolapse. Aortic Valve Trileaflet aortic valve. No aortic valve stenosis or regurgitation. Tricuspid Valve Structurally normal tricuspid valve. No tricuspid stenosis. Trace tricuspid regurgitation. Pulmonic Valve Structurally normal pulmonic valve. No pulmonic stenosis. No pulmonic regurgitation. Pericardium No pericardial effusion. Aorta Normal size aortic root and proximal ascending aorta. CONCLUSIONS Normal LV function Previewed by: Dr. Isma Stahl MD (Electronically Signed) Final Date: 01 June 2023 17:21
== END 2023-06-01 15:12 | disposition home or self-care (01) ==
LOC: EC 16:32 → 3SCARD 20:30
PROVIDERS: ADMIT Internal Medicine; ATTEND Internal Medicine
DX: R07.81 Pleurodynia (principal); R79.89 Other specified abnormal findings of blood chemistry; J98.11 Atelectasis; J90 Pleural effusion, not elsewhere classified; R60.9 Edema, unspecified; I45.10 Unspecified right bundle-branch block; I10 Essential (primary) hypertension; M25.571 Pain in right ankle and joints of right foot; M79.661 Pain in right lower leg; Z79.899 Other long term (current) drug therapy; Z88.8 Allergy status to other drugs, medicaments and biological substances; Z87.891 Personal history of nicotine dependence
CPT/HCPCS: 96376; 96365; 96366 ×2; 99285; 36415; 93005; 93306; 85379; 80053; 80048; 84484; 85025; 85027; 85610; 85730 ×2; 87636; 71046; 93971; 71275 ×2; G0378 ×2; J1644 ×3; Q9967 ×2; 96361; 96372

== ENCOUNTER → 2023-05-31 | Outpatient (CLI) | payer OTHER ==
--- NOTE | 2023-05-31 13:13 | XR ---
EXAMINATION TYPE: XR chest 2V DATE OF EXAM: 05/31/2023 12:58 PM CLINICAL INDICATION:Male, 37 years old with history of S13.4XXA SPRAIN LIGAME OF CERVICAL SPINE S43.4 01A; [facility] COMPARISON: None TECHNIQUE: XR chest 2V Frontal and lateral views of the chest. FINDINGS: Lungs/Pleura: There is no evidence of pleural effusion, focal consolidation, or pneumothorax. Pulmonary vascularity: Unremarkable. Heart/mediastinum: Cardiomediastinal silhouette is unremarkable. Musculoskeletal: No acute osseous pathology. Other findings: None IMPRESSION: No acute cardiopulmonary disease/process.
--- NOTE | 2023-05-31 13:16 | XR ---
EXAMINATION TYPE: XR ribs RT DATE OF EXAM: 05/31/2023 12:58 PM CLINICAL INDICATION:Male, 37 years old with history of S13.4XXA SPRAIN LIGAME OF CERVICAL SPINE S43.4 01A; COMPARISON: None TECHNIQUE: XR ribs RT; Frontal and oblique views of the ribs with frontal chest radiograph. FINDINGS: The ribs have a normal appearance. No evidence of fracture. Overall, the lungs are clear. The cardiac silhouette is normal in size. The remaining osseous structures are intact. IMPRESSION: No acute osseous pathology.
== END | disposition home or self-care (01) ==
LOC: RADXRMAIN 12:31
PROVIDERS: ATTEND Emergency Medicine
DX: S13.4XXD Sprain of ligaments of cervical spine, subsequent encounter (principal); S43.401D Unspecified sprain of right shoulder joint, subsequent encounter; X58.XXXD Exposure to other specified factors, subsequent encounter
CPT/HCPCS: 71046

== ENCOUNTER 2023-06-18 11:41 | Emergency (ER) | payer BC ==
--- NOTE | 2023-06-18 12:18 | ED ---
General Adult HPI - General Chief complaint: Allergic Reaction Stated complaint: Allergic Reaction Time Seen by Provider: 06/18/23 11:49 Source: patient, RN notes reviewed Mode of arrival: ambulatory Limitations: no limitations - History of Present Illness Initial comments: 37-year-old male presents emergency department to emergency department treatment of rash. Patient believes is an allergic reaction. Patient states she has had hives, lip swelling that started today. Patient states she has had on and off hives for last couple days has been taking Benadryl. He denies any new medications he states only thing different he picked up his hydralazine prescription last week and it was a different appearance. Patient denies any chest pain shortness of breath fevers chills he states he had a recent URI treated with azithromycin. Patient denies any other complaints. - Related Data Home Medications Medication Instructions Recorded Confirmed Metoprolol Succinate [Toprol XL] 100 mg PO DAILY 09/16/19 06/05/23 Potassium Chloride ER [K-Dur 10] 10 meq PO DAILY 09/16/19 06/05/23 amLODIPine [Norvasc] 10 mg PO DAILY 09/16/19 06/05/23 hydrALAZINE HCL [Apresoline] 50 mg PO TID 09/16/19 06/05/23 Cholecalciferol [Vitamin D3 (25 25 mcg PO DAILY 05/31/23 06/05/23 Mcg = 1000 Iu)] Previous Rx's Medication Instructions Recorded hydroCHLOROthiazide [Hydrodiuril] 25 mg PO DAILY #30 tab 05/11/18 Albuterol Inhaler [Ventolin Hfa 2 puff INHALATION Q4HR PRN #1 each 06/05/23 Inhaler] Albuterol Nebulized [Ventolin 2.5 mg INHALATION QID PRN #75 ml 06/05/23 Nebulized] predniSONE 50 mg PO DAILY #5 tab 06/18/23 Allergies Allergy/AdvReac Type Severity Reaction Status Date / Time HERMILA Inhibitors Allergy Swelling Verified 06/18/23 11:48 benazepril [From Lotrel] Allergy Swelling Verified 06/18/23 11:48 Review of Systems ROS Statement: Those systems with pertinent positive or pertinent negative responses have been documented in the HPI. ROS Other: All systems not noted in ROS Statement are negative. Past Medical History Past Medical History: Hypertension Additional Past Medical History / Comment(s): Pt states as a child he was getting bruising and had a work up that showed low platlets-has never happened again. History of Any Multi-Drug Resistant Organisms: None Reported Past Surgical History: No Surgical Hx Reported Past Anesthesia/Blood Transfusion Reactions: Unable to Obtain Additional Past Anesthesia/Blood Transfusion Reaction / Comment(s): Pt has never had surgery. Past Psychological History: No Psychological Hx Reported Smoking Status: Former smoker Past Alcohol Use History: None Reported Past Drug Use History: None Reported - Past Family History Father Family Medical History: CVA/TIA, Hypertension Additional Family Medical History / Comment(s): Father of a CVA at the age of 58yrs. Mother Family Medical History: No Reported History Additional Family Medical History / Comment(s): Mother is healthy General Exam Limitations: no limitations General appearance: alert, in no apparent distress Head exam: Present: atraumatic, normocephalic, normal inspection Eye exam: Present: normal appearance, PERRL, EOMI. Absent: scleral icterus, conjunctival injection, periorbital swelling ENT exam: Present: normal exam, normal oropharynx, mucous membranes moist Neck exam: Present: normal inspection, full ROM. Absent: tenderness, meningismus, lymphadenopathy Respiratory exam: Present: normal lung sounds bilaterally. Absent: respiratory distress, wheezes, rales, rhonchi, stridor Cardiovascular Exam: Present: regular rate, normal rhythm, normal heart sounds. Absent: systolic murmur, diastolic murmur, rubs, gallop, clicks Neurological exam: Present: alert, oriented X3 Course Vital Signs 06/18/23 06/18/23 06/18/23 11:45 13:25 14:23 Temperature 99.5 F 98.8 F 99.1 F Pulse Rate 101 H 88 90 Respiratory 20 18 18 Rate Blood Pressure 155/93 139/80 143/87 O2 Sat by Pulse 96 97 97 Oximetry Medical Decision Making - Medical Decision Making Was pt. sent in by a medical professional or institution (FLAKITA Rascon, BROADCAST CHECKER, urgent care, hospital, or senior living...) When possible be specific @ -No Did you speak to anyone other than the patient for history (EMS, parent, family, police, friend...)? What history was obtained from this source @ -No Did you review nursing and triage notes (agree or disagree)? Why? @ -I reviewed and agree with nursing and triage notes Were old charts reviewed (outside hosp., previous admission, EMS record, old EKG, old radiological studies, urgent care reports/EKG's, senior living records)? Report findings @ -Reviewed with laboratory studies Differential Diagnosis (chest pain, altered mental status, abdominal pain women, abdominal pain men, vaginal bleeding, weakness, fever, dyspnea, syncope, headache, dizziness, GI bleed, back pain, seizure, CVA, palpatations, mental health, musculoskeletal)? @ -Hives, allergic reaction, strep, autoimmune disorder EKG interpreted by me (3pts min.). @ -None X-rays interpreted by me (1pt min.). @ -None done CT interpreted by me (1pt min.). @ -None done U/S interpreted by me (1pt. min.). @ -None done What testing was considered but not performed or refused? (CT, X-rays, U/S, labs)? Why? @ -None What meds were considered but not given or refused? Why? @ -None Did you discuss the management of the patient with other professionals (professionals i.e. , PA, BROADCAST CHECKER, lab, RT, psych nurse, social media marketer, waterproof bag cutting machine operator, teacher, founder chairman and chief creative officer, manager case)? Give summary @ -No Was smoking cessation discussed for >3mins.? @ -No Was critical care preformed (if so, how long)? @ -No Were there social determinants of health that impacted care today? How? (Homelessness, low income, unemployed, alcoholism, drug addiction, transportation, low edu. Level, literacy, decrease access to med. care, longterm, rehab)? @ -No Was there de-escalation of care discussed even if they declined (Discuss DNR or withdrawal of care, Hospice)? DNR status @ -No What co-morbidities impacted this encounter? (DM, HTN, Smoking, COPD, CAD, Cancer, CVA, ARF, Chemo, Hep., AIDS, mental health diagnosis, sleep apnea, morbid obesity)? @ -None Was patient admitted / discharged? Hospital course, mention meds given and route, prescriptions, significant lab abnormalities, going to OR and other pertinent info. @ -Discharge patient has some improvement after IV steroids and Pepcid. This may be related to allergic reaction we discussed possibility of underlying rheumatological issue patient has appointment on the fourth return parameters discussed. Undiagnosed new problem with uncertain prognosis? @ -No Drug Therapy requiring intensive monitoring for toxicity (Heparin, Nitro, Insulin, Cardizem)? @ -No Were any procedures done? @ -No Diagnosis/symptom? @ -[Allergic reaction Acute, or Chronic, or Acute on Chronic? @ -Acute Uncomplicated (without systemic symptoms) or Complicated (systemic symptoms)? @ -Uncomplicated Side effects of treatment? @ -No Exacerbation, Progression, or Severe Exacerbation? @ -No Poses a threat to life or bodily function? How? (Chest pain, [place], [place], pneumonia, PE, COPD, DKA, ARF, appy, cholecystitis, CVA, Diverticulitis, Homicidal, Suicidal, threat to staff... and all critical care pts) @ -No - Lab Data Result diagrams: 06/18/23 12:20 06/18/23 12:20 Lab Results 06/18/23 06/18/23 06/18/23 Range/Units 12:20 12:20 12:20 WBC 9.5 (3.8-10.6) k/uL RBC 5.18 (4.30-5.90) m/uL Hgb 14.0 (13.0-17.5) gm/dL Hct 42.8 (39.0-53.0) % MCV 82.7 (80.0-100.0) fL MCH 27.1 (25.0-35.0) pg MCHC 32.8 (31.0-37.0) g/dL RDW 13.1 (11.5-15.5) % Plt Count 362 (150-450) k/uL MPV 7.0 Neutrophils % 82 % Lymphocytes % 12 % Monocytes % 3 % Eosinophils % 2 % Basophils % 0 % Neutrophils # 7.8 H (1.3-7.7) k/uL Lymphocytes # 1.2 (1.0-4.8) k/uL Monocytes # 0.3 (0-1.0) k/uL Eosinophils # 0.2 (0-0.7) k/uL Basophils # 0.0 (0-0.2) k/uL Sodium 137 (137-145) mmol/L Potassium 4.1 (3.5-5.1) mmol/L Chloride 100 (98-107) mmol/L Carbon Dioxide 27 (22-30) mmol/L Anion Gap 10 mmol/L BUN 16 (9-20) mg/dL Creatinine 0.95 (0.66-1.25) mg/dL Est GFR (CKD-EPI)AfAm >90 (>60 ml/min/1.73 sqM) Est GFR (CKD-EPI)NonAf >90 (>60 ml/min/1.73 sqM) Glucose 108 H (74-99) mg/dL Calcium 9.3 (8.4-10.2) mg/dL Total Bilirubin 0.9 (0.2-1.3) mg/dL AST 41 (17-59) U/L ALT 67 H (4-49) U/L Alkaline Phosphatase 101 (38-126) U/L Total Protein 7.9 (6.3-8.2) g/dL Albumin 4.2 (3.5-5.0) g/dL TSH 1.620 (0.465-4.680) mIU/L Group A Strep (PCR) NOT DETECTED (Not Detectd) Disposition Clinical Impression: Allergic reaction Disposition: HOME SELF-CARE Condition: Stable Instructions (If sedation given, give patient instructions): General Allergic Reaction (ED) Additional Instructions: Please return to the Emergency Department if symptoms worsen or any other concerns. Continue Benadryl as directed. Prescriptions: predniSONE 50 mg PO DAILY #5 tab Is patient prescribed a controlled substance at d/c from ED?: No Referrals: None,Stated [Primary Care Provider] - 1-2 days Time of Disposition: 14:17
[2023-06-18] MEDS: methylPREDNISolone SOD SUCCI 125 MG/2 ML VIAL IV STA (12:32)
[2023-06-18] MEDS: FAMOTIDINE 20 MG/2 ML VIAL IV STA (12:34)
[2023-06-18 12:35] LABS: Basophils % (A) 0 %; Eosinophils # (A) 0.2 k/uL (0-0.7); Eosinophils % (A) 2 %; HCT 42.8 % (39.0-53.0); Lymphocytes # (A) 1.2 k/uL (1.0-4.8); Lymphocytes % (A) 12 %; MCH 27.1 pg (25.0-35.0); MCHC 32.8 g/dL (31.0-37.0); MCV 82.7 fL (80.0-100.0); Monocytes # (A) 0.3 k/uL (0-1.0); Monocytes % (A) 3 %; Neutrophils # (A) 7.8 k/uL (1.3-7.7); Neutrophils % (A) 82 %; Platelet Count 362 k/uL (150-450); RBC 5.18 m/uL (4.30-5.90); RDW 13.1 % (11.5-15.5); WBC 9.5 k/uL (3.8-10.6)
[2023-06-18 13:06] LABS: ALT 67 U/L (4-49); AST 41 U/L (17-59); African American GFR (CKD) >90 (>60 ml/min/1.73 sqM); Albumin 4.2 g/dL (3.5-5.0); Alkaline Phosphatase 101 U/L (38-126); Anion Gap 10 mmol/L; Blood Urea Nitrogen 16 mg/dL (9-20); Calcium 9.3 mg/dL (8.4-10.2); Carbon Dioxide 27 mmol/L (22-30); Chloride 100 mmol/L (98-107); Glucose 108 mg/dL (74-99); Non-African American GFR(CKD) >90 (>60 ml/min/1.73 sqM); Potassium 4.1 mmol/L (3.5-5.1); Sodium 137 mmol/L (137-145); Total Bilirubin 0.9 mg/dL (0.2-1.3); Total Protein 7.9 g/dL (6.3-8.2)
[2023-06-18 13:28] VITALS: RESP 18
[2023-06-18 14:38] VITALS: BP 143/87; PULSE 90; TEMP 99.1
== END 2023-06-18 14:29 | disposition home or self-care (01) ==
LOC: EC 11:41
DX: T78.40XA Allergy, unspecified, initial encounter (principal); Z87.891 Personal history of nicotine dependence; Z88.8 Allergy status to other drugs, medicaments and biological substances
CPT/HCPCS: 36415; 87651; 80053; 84443; 85025; 99284; 96374; 96375; J2930; J3490

== ENCOUNTER 2023-07-15 20:16 | Emergency (ER) | payer BC ==
[2023-07-15 21:09] VITALS: TEMP 100.4
--- NOTE | 2023-07-15 21:39 | US ---
EXAMINATION TYPE: US venous doppler duplex LE RT DATE OF EXAM: 07/15/2023 9:26 PM COMPARISON: NONE CLINICAL INDICATION: Male, 37 years old with history of right calf pain; right leg pain SIDE PERFORMED: Right TECHNIQUE: The lower extremity deep venous system is examined utilizing real time linear array sonog cherelle with graded compression, doppler sonography and color-flow sonography. VESSELS IMAGED: Common Femoral Vein Deep Femoral Vein Greater Saphenous Vein * Femoral Vein Popliteal Vein Small Saphenous Vein * Proximal Calf Veins (* superficial vessels) Right Leg: Negative for DVT IMPRESSION: Grayscale, color doppler, spectral doppler imaging performed of the deep veins of the lo wer extremities. There is normal flow, compressibility, vascular waveforms.
--- NOTE | 2023-07-15 22:04 | ED ---
General Adult HPI - General Chief complaint: Extremity Problem,Nontraumatic Stated complaint: SOB chest pain swollen rt leg Time Seen by Provider: 07/15/23 21:45 Source: patient Mode of arrival: ambulatory Limitations: no limitations - History of Present Illness Initial comments: Dictation was produced using [employer] dictation software. please excuse any gra mmatical, word or spelling errors. Chief Complaint: 37-year-old male presents with right calf pain and shortness of breath History of Present Illness: Patient 37-year-old male presents emergency department right calf pain and shortness of breath. States that he has been having symptoms for the last 3 to 4 days. He also has associated fever. Patient has been had a mild cough. States that the pain is to his right lower calf. Denies any popliteal pain or medial thigh pain. Denies any chest pain. Patient has no history of blood clot. Traveled to [place] at the end of May. The ROS documented in this emergency department record has been reviewed and confirmed by me. Those systems with pertinent positive or negative responses have been documented in the HPI. All other systems are other negative and/or noncontributory. - Related Data Home Medications Medication Instructions Recorded Confirmed Metoprolol Succinate [Toprol XL] 100 mg PO DAILY 09/16/19 06/05/23 Potassium Chloride ER [K-Dur 10] 10 meq PO DAILY 09/16/19 06/05/23 amLODIPine [Norvasc] 10 mg PO DAILY 09/16/19 06/05/23 hydrALAZINE HCL [Apresoline] 50 mg PO TID 09/16/19 06/05/23 Cholecalciferol [Vitamin D3 (25 25 mcg PO DAILY 05/31/23 06/05/23 Mcg = 1000 Iu)] Previous Rx's Medication Instructions Recorded hydroCHLOROthiazide [Hydrodiuril] 25 mg PO DAILY #30 tab 05/11/18 Albuterol Inhaler [Ventolin Hfa 2 puff INHALATION Q4HR PRN #1 each 06/05/23 Inhaler] Albuterol Nebulized [Ventolin 2.5 mg INHALATION QID PRN #75 ml 06/05/23 Nebulized] predniSONE 50 mg PO DAILY #5 tab 06/18/23 Allergies Allergy/AdvReac Type Severity Reaction Status Date / Time HERMILA Inhibitors Allergy Swelling Verified 07/15/23 20:44 benazepril [From Lotrel] Allergy Swelling Verified 07/15/23 20:44 Review of Systems ROS Statement: Those systems with pertinent positive or pertinent negative responses have been documented in the HPI. ROS Other: All systems not noted in ROS Statement are negative. Past Medical History Past Medical History: Hypertension Additional Past Medical History / Comment(s): Pt states as a child he was getting bruising and had a work up that showed low platlets-has never happened again. History of Any Multi-Drug Resistant Organisms: None Reported Past Surgical History: No Surgical Hx Reported Past Anesthesia/Blood Transfusion Reactions: Unable to Obtain Additional Past Anesthesia/Blood Transfusion Reaction / Comment(s): Pt has never had surgery. Past Psychological History: No Psychological Hx Reported Smoking Status: Former smoker Past Alcohol Use History: None Reported Past Drug Use History: None Reported - Past Family History Father Family Medical History: CVA/TIA, Hypertension Additional Family Medical History / Comment(s): Father of a CVA at the age of 58yrs. Mother Family Medical History: No Reported History Additional Family Medical History / Comment(s): Mother is healthy General Exam - General Exam Comments Initial Comments: PHYSICAL EXAM: General Impression: Alert and oriented x3, not in acute distress HEENT: Normocephalic atraumatic, extra-ocular movements intact, pupils equal and reactive to light bilaterally, mucous membranes moist. Cardiovascular: Heart regular rate and rhythm Chest: Able to complete full sentences, no retractions, no tachypnea Abdomen: abdomen soft, non-tender, non-distended, no organomegaly Musculoskeletal: Pulses present and equal in all extremities, no peripheral edema, mild right calf tenderness, no significant asymmetry of girth Motor: no focal deficits noted Neurological: CN II-XII grossly intact, no focal motor or sensory deficits noted Skin: Intact with no visualized rashes Psych: Normal affect and mood Limitations: no limitations Course Vital Signs 07/15/23 07/15/23 20:44 22:07 Temperature 100.4 F H Pulse Rate 116 H 107 H Respiratory 17 23 Rate Blood Pressure 146/88 142/84 O2 Sat by Pulse 98 97 Oximetry Medical Decision Making - Medical Decision Making Was pt. sent in by a medical professional or institution (, PA, JUMBO OPERATOR, urgent care, hospital, or assisted...) When possible be specific @ -No Did you speak to anyone other than the patient for history (EMS, parent, family, police, friend...)? What history was obtained from this source @ -No Did you review nursing and triage notes (agree or disagree)? Why? @ -I reviewed and agree with nursing and triage notes Were old charts reviewed (outside hosp., previous admission, EMS record, old EKG, old radiological studies, urgent care reports/EKG's, assisted records)? Report findings @ -No old charts were reviewed Differential Diagnosis (chest pain, altered mental status, abdominal pain women, abdominal pain men, vaginal bleeding, musculoskeletal, weakness, fever, dyspnea, syncope, headache, dizziness, GI bleed, back pain, seizure, CVA, palpatations, mental health)? @ -Differential Dyspnea: Coronary syndrome, arrhythmia, tamponade, asthma, COPD, pulmonary embolism, pneumonia, pneumothorax, pulmonary effusion, anaphylaxis, diabetic ketoacidosis, flailed chest, pulmonary contusion, diaphragmatic rupture, anemia, neuromuscular, this is not meant to be an all-inclusive list. EKG interpreted by me (3pts min.). @ -My EKG interpretation: Ventricular rate 102, sinus tachycardia,. 130, cures 157, QTc 437, right bundle branch block. No CA prolongation, no QTC prolongation, no ST or T-wave changes noted. Overall, this EKG is unremarkable X-rays interpreted by me (1pt min.). @ -None done CT interpreted by me (1pt min.). @ -CT angiography of the chest shows mild cardiomegaly and small pleural effusions U/S interpreted by me (1pt. min.). @ -None done What testing was considered but not performed or refused? (CT, X-rays, U/S, labs)? Why? @ -None What meds were considered but not given or refused? Why? @ -None Did you discuss the management of the patient with other professionals (professionals i.e. , PA, JUMBO OPERATOR, lab, RT, psych nurse, director social, soil conservationist, teacher, peace officer, rifle case repairer)? Give summary @ -No Was smoking cessation discussed for >3mins.? @ -No Was critical care preformed (if so, how long)? @ -No Were there social determinants of health that impacted care today? How? (Ho melessness, low income, unemployed, alcoholism, drug addiction, transportation, low edu. Level, literacy, decrease access to med. care, fdc, rehab)? @ -No Was there de-escalation of care discussed even if they declined (Discuss DNR or withdrawal of care, Hospice)? DNR status @ -No What co-morbidities impacted this encounter? (DM, HTN, Smoking, COPD, CAD, Cancer, CVA, ARF, Chemo, Hep., AIDS, mental health diagnosis, sleep apnea, morbid obesity)? @ -None Was patient admitted / discharged? Hospital course, mention meds given and route, prescriptions, significant lab abnormalities, going to OR and other pertinent info. @ -37-year-old male presents to the emergency department with right lower extremity symptoms along with chest pain and dyspnea. Vital signs upon arrival shows low-grade temperature 100.4. Mildly tachycardic 116 rest of vital signs within acceptable limits. Laboratory evaluation is unremarkable. Troponin is negative. BNP is negative. Viral testing is negative. EKG shows right bundle branch block without any concerning findings. CT angiography shows no PE. Ther e does appear to be some cardiomegaly with some mild pleural effusions however he has a normal BNP lowering the suspicion of heart failure. Patient states that he has an appointment with his primary care doctor coming up. He is advised to maintain that appointment. Otherwise patient discharged. Reevaluated bedside at 12:23 AM on to be in stable condition. Patient agreeable with plan. Undiagnosed new problem with uncertain prognosis? @ -No Drug Therapy requiring intensive monitoring for toxicity (Heparin, Nitro, Insulin, Cardizem)? @ -No Were any procedures done? @ -No Diagnosis/symptom? Acute, or Chronic, or Acute on Chronic? Uncomplicated (without systemic symptoms) or Complicated (systemic symptoms)? @ -Dyspnea, no high risk features Side effects of treatment? @ -No Exacerbation, Progression, or Severe Exacerbation? @ -No Poses a threat to life or bodily function? How? (Chest pain, [place], [place], pneumonia, PE, COPD, DKA, ARF, appy, cholecystitis, CVA, Diverticulitis, Homicidal, Suicidal, threat to staff... and all critical care pts) @ -No - Lab Data Result diagrams: 07/15/23 22:10 07/15/23 22:10 Lab Results 07/15/23 07/15/23 07/15/23 Range/Units 20:50 22:10 22:10 WBC 8.1 (3.8-10.6) k/uL RBC 4.74 (4.30-5.90) m/uL Hgb 12.8 L (13.0-17.5) gm/dL Hct 38.1 L (39.0-53.0) % MCV 80.4 (80.0-100.0) fL MCH 27.0 (25.0-35.0) pg MCHC 33.6 (31.0-37.0) g/dL RDW 14.3 (11.5-15.5) % Plt Count 429 (150-450) k/uL MPV 7.3 Neutrophils % 66 % Lymphocytes % 23 % Monocytes % 4 % Eosinophils % 4 % Basophils % 1 % Neutrophils # 5.3 (1.3-7.7) k/uL Lymphocytes # 1.9 (1.0-4.8) k/uL Monocytes # 0.4 (0-1.0) k/uL Eosinophils # 0.3 (0-0.7) k/uL Basophils # 0.1 (0-0.2) k/uL PT 10.5 (10.0-12.5) sec INR 1.0 (<1.2) APTT 23.3 (22.0-30.0) sec Sodium (137-145) mmol/L Potassium (3.5-5.1) mmol/L Chloride (98-107) mmol/L Carbon Dioxide (22-30) mmol/L Anion Gap mmol/L BUN (9-20) mg/dL Creatinine (0.66-1.25) mg/dL Est GFR (CKD-EPI)AfAm (>60 ml/min/1.73 sqM) Est GFR (CKD-EPI)NonAf (>60 ml/min/1.73 sqM) Glucose (74-99) mg/dL Calcium (8.4-10.2) mg/dL Troponin I (0.000-0.034) ng/mL NT-Pro-B Natriuret Pep pg/mL Influenza Type A (PCR) Not Detected (Not Detectd) Influenza Type B (PCR) Not Detected (Not Detectd) RSV (PCR) Not Detected (Not Detectd) SARS-CoV-2 (PCR) Not Detected (Not Detectd) 07/15/23 07/15/23 Range/Units 22:10 22:10 WBC (3.8-10.6) k/uL RBC (4.30-5.90) m/uL Hgb (13.0-17.5) gm/dL Hct (39.0-53.0) % MCV (80.0-100.0) fL MCH (25.0-35.0) pg MCHC (31.0-37.0) g/dL RDW (11.5-15.5) % Plt Count (150-450) k/uL MPV Neutrophils % % Lymphocytes % % Monocytes % % Eosinophils % % Basophils % % Neutrophils # (1.3-7.7) k/uL Lymphocytes # (1.0-4.8) k/uL Monocytes # (0-1.0) k/uL Eosinophils # (0-0.7) k/uL Basophils # (0-0.2) k/uL PT (10.0-12.5) sec INR (<1.2) APTT (22.0-30.0) sec Sodium 137 (137-145) mmol/L Potassium 3.2 L (3.5-5.1) mmol/L Chloride 102 (98-107) mmol/L Carbon Dioxide 25 (22-30) mmol/L Anion Gap 10 mmol/L BUN 11 (9-20) mg/dL Creatinine 0.76 (0.66-1.25) mg/dL Est GFR (CKD-EPI)AfAm >90 (>60 ml/min/1.73 sqM) Est GFR (CKD-EPI)NonAf >90 (>60 ml/min/1.73 sqM) Glucose 117 H (74-99) mg/dL Calcium 9.1 (8.4-10.2) mg/dL Troponin I <0.012 (0.000-0.034) ng/mL NT-Pro-B Natriuret Pep 90 pg/mL Influenza Type A (PCR) (Not Detectd) Influenza Type B (PCR) (Not Detectd) RSV (PCR) (Not Detectd) SARS-CoV-2 (PCR) (Not Detectd) Disposition Clinical Impression: Dyspnea Disposition: HOME SELF-CARE Condition: Good Instructions (If sedation given, give patient instructions): Dyspnea (ED) Is patient prescribed a controlled substance at d/c from ED?: No Referrals: Kiki Montes MD [Primary Care Provider] - 1-2 days Time of Disposition: 00:24
[2023-07-15 22:23] LABS: Basophils # (A) 0.1 k/uL (0-0.2); Basophils % (A) 1 %; Eosinophils # (A) 0.3 k/uL (0-0.7); Eosinophils % (A) 4 %; HCT 38.1 % (39.0-53.0); HGB 12.8 gm/dL (13.0-17.5); Lymphocytes # (A) 1.9 k/uL (1.0-4.8); Lymphocytes % (A) 23 %; MCHC 33.6 g/dL (31.0-37.0); MCV 80.4 fL (80.0-100.0); Mean Platelet Volume 7.3; Monocytes # (A) 0.4 k/uL (0-1.0); Monocytes % (A) 4 %; Neutrophils # (A) 5.3 k/uL (1.3-7.7); Neutrophils % (A) 66 %; Platelet Count 429 k/uL (150-450); RBC 4.74 m/uL (4.30-5.90); RDW 14.3 % (11.5-15.5); WBC 8.1 k/uL (3.8-10.6)
[2023-07-15 22:32] LABS: Partial Thromboplastin Time 23.3 sec (22.0-30.0); Prothrombin Time 10.5 sec (10.0-12.5)
[2023-07-15 22:37] LABS: African American GFR (CKD) >90 (>60 ml/min/1.73 sqM); Anion Gap 10 mmol/L; Blood Urea Nitrogen 11 mg/dL (9-20); Calcium 9.1 mg/dL (8.4-10.2); Carbon Dioxide 25 mmol/L (22-30); Chloride 102 mmol/L (98-107); Glucose 117 mg/dL (74-99); Non-African American GFR(CKD) >90 (>60 ml/min/1.73 sqM); Potassium 3.2 mmol/L (3.5-5.1); Sodium 137 mmol/L (137-145)
[2023-07-15 22:46] LABS: NT-Pro-B-Type Natriuretic Pept 90 pg/mL
--- NOTE | 2023-07-15 23:31 | CT ---
EXAM: CT Angiography Chest With Intravenous Contrast CLINICAL HISTORY: ITS.REASON CT Reason: positive D-dimer TECHNIQUE: Axial computed tomographic angiography images of the chest with intravenous contrast. This CT exam was performed using one or more of the following dose reduction techniques: automated exposure control, adjustment of the mA and/or kV according to patient size, and/or use of iterative reconstruction technique. MIP reconstructed images were created and reviewed. COMPARISON: 06/01/2023. FINDINGS: Pulmonary arteries: Peripheral branches the pulmonary arteries are unremarkable. Moderate to severe degenerative disc disease of the thoracic spine. Aorta: Thoracic aorta is unremarkable. No thoracic aortic aneurysm. Lungs: Airway is normal. Minimal scarring and subsegmental atelectasis near the lung bases. No mass. Pleural space: Small bilateral pleural effusions. Consider congestive heart failure. No pneumothorax. Heart: There is mild cardiomegaly. No significant pericardial effusion. No evidence of RV dysfunction. Thyroid: Thyroid gland is unremarkable. Bones/joints: No acute fracture. No dislocation. Soft tissues: Unremarkable. Lymph nodes: Unremarkable. No enlarged lymph nodes. Other findings: Mild hypoaeration. IMPRESSION: 1. Cardiomegaly and small pleural effusions. Consider congestive heart failure. 2. No central or peripheral pulmonary emboli detected.
[2023-07-16 00:53] VITALS: BP 129/87; PULSE 97; RESP 19
== END 2023-07-16 01:01 | disposition home or self-care (01) ==
LOC: EC 20:16
DX: R06.00 Dyspnea, unspecified (principal); M79.661 Pain in right lower leg; I45.10 Unspecified right bundle-branch block; Z87.891 Personal history of nicotine dependence; Z88.8 Allergy status to other drugs, medicaments and biological substances
CPT/HCPCS: 99285 ×2; 36415; 93005; 83880; 80048; 84484; 85025; 85610; 85730; 87636; 93971; 71275; Q9967

== ENCOUNTER 2023-10-13 03:31 | Inpatient (IN) | payer BC ==
[2023-10-13 04:37] LABS: Basophils % (A) 0 %; Eosinophils # (A) 0.2 k/uL (0-0.7); Eosinophils % (A) 2 %; HCT 36.2 % (39.0-53.0); HGB 11.8 gm/dL (13.0-17.5); Lymphocytes # (A) 1.1 k/uL (1.0-4.8); Lymphocytes % (A) 11 %; MCH 26.7 pg (25.0-35.0); MCHC 32.7 g/dL (31.0-37.0); MCV 81.6 fL (80.0-100.0); Mean Platelet Volume 7.8; Monocytes # (A) 0.5 k/uL (0-1.0); Monocytes % (A) 5 %; Neutrophils # (A) 8.8 k/uL (1.3-7.7); Neutrophils % (A) 82 %; Platelet Count 442 k/uL (150-450); RBC 4.43 m/uL (4.30-5.90); RDW 14.5 % (11.5-15.5); WBC 10.8 k/uL (3.8-10.6)
[2023-10-13 04:39] LABS: ALT 27 U/L (4-49); AST 29 U/L (17-59); African American GFR (CKD) >90 (>60 ml/min/1.73 sqM); Albumin 3.9 g/dL (3.5-5.0); Alkaline Phosphatase 75 U/L (38-126); Anion Gap 10 mmol/L; Blood Urea Nitrogen 12 mg/dL (9-20); Calcium 9.6 mg/dL (8.4-10.2); Carbon Dioxide 23 mmol/L (22-30); Chloride 106 mmol/L (98-107); Glucose 151 mg/dL (74-99); Non-African American GFR(CKD) >90 (>60 ml/min/1.73 sqM); Sodium 139 mmol/L (137-145); Total Bilirubin 0.7 mg/dL (0.2-1.3)
[2023-10-13 04:40] LABS: INR 1.1 (<1.2); Partial Thromboplastin Time 25.1 sec (22.0-30.0); Prothrombin Time 11.7 sec (10.0-12.5)
[2023-10-13 04:48] LABS: NT-Pro-B-Type Natriuretic Pept 165 pg/mL
--- NOTE | 2023-10-13 05:55 | ED ---
SOB HPI - General Source: patient Mode of arrival: ambulatory Limitations: no limitations <Rashmi Hernandez - Last Filed: 10/13/23 07:31> <Wilmar Skaggs - Last Filed: 10/13/23 07:56> - General Chief Complaint: Shortness of Breath Stated Complaint: SOB, Chest Pain Time Seen by Provider: 10/13/23 03:42 - History of Present Illness Initial Comments: 38-year-old male who presents emergency department reporting palpitations and chest pain. States that he has exertional chest pain as well as orthopnea. P coco has been running a fever at home. Symptoms started earlier in the day. He does admit to some lower extremity swelling. He denies history of DVT or PE. No history of cardiac disease. Patient not currently taking any medications for his symptoms. (Rashmi Hernandez) - Related Data Home Medications Medication Instructions Recorded Confirmed Metoprolol Succinate [Toprol XL] 100 mg PO DAILY 09/16/19 06/05/23 Potassium Chloride ER [K-Dur 10] 10 meq PO DAILY 09/16/19 06/05/23 amLODIPine [Norvasc] 10 mg PO DAILY 09/16/19 06/05/23 hydrALAZINE HCL [Apresoline] 50 mg PO TID 09/16/19 06/05/23 Cholecalciferol [Vitamin D3 (25 25 mcg PO DAILY 05/31/23 06/05/23 Mcg = 1000 Iu)] Previous Rx's Medication Instructions Recorded hydroCHLOROthiazide [Hydrodiuril] 25 mg PO DAILY #30 tab 05/11/18 Albuterol Inhaler [Ventolin Hfa 2 puff INHALATION Q4HR PRN #1 each 06/05/23 Inhaler] Albuterol Nebulized [Ventolin 2.5 mg INHALATION QID PRN #75 ml 06/05/23 Nebulized] predniSONE 50 mg PO DAILY #5 tab 06/18/23 Allergies Allergy/AdvReac Type Severity Reaction Status Date / Time HERMILA Inhibitors Allergy Swelling Verified 10/13/23 03:35 benazepril [From Lotrel] Allergy Swelling Verified 10/13/23 03:35 Review of Systems ROS Other: All systems not noted in ROS Statement are negative. <Rashmi Hernandez - Last Filed: 10/13/23 07:31> ROS Other: All systems not noted in ROS Statement are negative. <Wilmar Skaggs - Last Filed: 10/13/23 07:56> ROS Statement: Those systems with pertinent positive or pertinent negative responses have been documented in the HPI. Past Medical History Past Medical History: Hypertension Additional Past Medical History / Comment(s): Pt states as a child he was getting bruising and had a work up that showed low platlets-has never happened again. History of Any Multi-Drug Resistant Organisms: None Reported Past Surgical History: No Surgical Hx Reported Past Anesthesia/Blood Transfusion Reactions: Unable to Obtain Additional Past Anesthesia/Blood Transfusion Reaction / Comment(s): Pt has never had surgery. Past Psychological History: No Psychological Hx Reported Smoking Status: Former smoker Past Alcohol Use History: None Reported Past Drug Use History: None Reported - Past Family History Father Family Medical History: CVA/TIA, Hypertension Additional Family Medical History / Comment(s): Father of a CVA at the age of 58yrs. Mother Family Medical History: No Reported History Additional Family Medical History / Comment(s): Mother is healthy <Rashmi Hernandez - Last Filed: 10/13/23 07:31> General Exam Limitations: no limitations General appearance: alert, in no apparent distress Head exam: Present: atraumatic, normocephalic, normal inspection Eye exam: Present: normal appearance, PERRL, EOMI. Absent: scleral icterus, conjunctival injection, periorbital swelling ENT exam: Present: normal exam, mucous membranes moist Neck exam: Present: normal inspection. Absent: tenderness, meningismus, l ymphadenopathy Respiratory exam: Present: normal lung sounds bilaterally. Absent: respiratory distress, wheezes, rales, rhonchi, stridor Cardiovascular Exam: Present: normal rhythm, tachycardia, normal heart sounds. Absent: systolic murmur, diastolic murmur, rubs, gallop, clicks GI/Abdominal exam: Present: soft, normal bowel sounds. Absent: distended, tenderness, guarding, rebound, rigid Extremities exam: Present: normal inspection, full ROM, normal capillary refill. Absent: tenderness, pedal edema, joint swelling, calf tenderness Back exam: Present: normal inspection Neurological exam: Present: alert, oriented X3, CN II-XII intact Psychiatric exam: Present: normal affect, normal mood Skin exam: Present: warm, dry, intact, normal color. Absent: rash <Rashmi Hernandez - Last Filed: 10/13/23 07:31> Course Vital Signs 10/13/23 10/13/23 10/13/23 03:33 04:25 04:53 Temperature 98.7 F Pulse Rate 113 H 96 Respiratory 20 26 H 22 Rate Blood Pressure 120/68 141/89 O2 Sat by Pulse 96 96 Oximetry 10/13/23 10/13/23 10/13/23 05:20 06:37 07:01 Temperature 99.8 F H Pulse Rate 104 H 110 H Respiratory 18 18 Rate Blood Pressure 123/81 141/81 O2 Sat by Pulse 96 95 Oximetry Medical Decision Making - Lab Data Result diagrams: 10/13/23 03:49 10/13/23 03:49 <Rashmi Hernandez - Last Filed: 10/13/23 07:31> - Lab Data Result diagrams: 10/13/23 03:49 10/13/23 03:49 <Wilmar Skaggs - Last Filed: 10/13/23 07:56> - Medical Decision Making Was pt. sent in by a medical professional or institution (, PA, SENIOR DATABASE ENGINEER, urgent care, hospital, or long term...) When possible be specific @ -No Did you speak to anyone other than the patient for history (EMS, parent, family, police, friend...)? What history was obtained from this source @ -No Did you review nursing and triage notes (agree or disagree)? Why? @ -I reviewed and agree with nursing and triage notes Were old charts reviewed (outside hosp., previous admission, EMS record, old EKG, old radiological studies, urgent care reports/EKG's, long term records)? Report findings @ -No old charts were reviewed Differential Diagnosis (chest pain, altered mental status, abdominal pain women, abdominal pain men, vaginal bleeding, weakness, fever, dyspnea, syncope, headache, dizziness, GI bleed, back pain, seizure, CVA, palpatations, mental health, musculoskeletal)? @ -Differential Chest Pain: Stable Angina, Unstable Angina, STEMI, NSTEMI Aortic Dissection, Pneumothorax, Musculoskeletal, Esophageal Spasm GERD, Cholecystitis, Pancreatitis, Zoster, this is not meant to be an all-inclusive list. EKG interpreted by me (3pts min.). @ -Yes and demonstrates sinus tachycardia with a rate of 103. MN interval 119. QRS 150. QTc of 420. No acute ST segment elevations or depressions X-rays interpreted by me (1pt min.). @ -None done CT interpreted by me (1pt min.). @ -awaiting results U/S interpreted by me (1pt. min.). @ -None done What testing was considered but not performed or refused? (CT, X-rays, U/S, labs)? Why? @ -None What meds were considered but not given or refused? Why? @ -None Did you discuss the management of the patient with other professionals (professionals i.e. Dr., PA, SENIOR DATABASE ENGINEER, lab, RT, psych nurse, social and human services assistant, dyer and washer, teacher, hearing officer, shoe caser)? Give summary @ -No Was smoking cessation discussed for >3mins.? @ -No Was critical care preformed (if so, how long)? @ -No Were there social determinants of health that impacted care today? How? (Homelessness, low income, unemployed, alcoholism, drug addiction, transportation, low edu. Level, literacy, decrease access to med. care, half-way, rehab)? @ -No Was there de-escalation of care discussed even if they declined (Discuss DNR or withdrawal of care, Hospice)? DNR status @ -No What co-morbidities impacted this encounter? (DM, HTN, Smoking, COPD, CAD, Cancer, CVA, ARF, Chemo, Hep., AIDS, mental health diagnosis, sleep apnea, morbid obesity)? @ -Hypertension Was patient admitted / discharged? Hospital course, mention meds given and route, prescriptions, significant lab abnormalities, going to OR and other pertinent info. @ -Patient signed out to Dr. Skaggs for further disposition (Rashmi Hernandez) Was patient admitted / discharged? Hospital course, mention meds given and rout e, prescriptions, significant lab abnormalities, going to OR and other pertinent info. @ -Patient was signed out to me by Dr. Tee. CT scan was interpreted by myself and I noted multiple small pulmonary embolism. This was verified by radiology. Patient was started on heparin echo was ordered I spoke with sound physicians they agreed to admit the patient admit the patient I consulted vascular Undiagnosed new problem with uncertain prognosis? @ -No Drug Therapy requiring intensive monitoring for toxicity (Heparin, Nitro, Insulin, Cardizem)? @ -No Were any procedures done? @ -No Diagnosis/symptom? @ -Pulmonary embolism Acute, or Chronic, or Acute on Chronic? @ -Acute Uncomplicated (without systemic symptoms) or Complicated (systemic symptoms)? @ -Complicated Side effects of treatment? @ -No Exacerbation, Progression, or Severe Exacerbation? @ -No Poses a threat to life or bodily function? How? (Chest pain, USA, LA, pneumonia, PE, COPD, DKA, ARF, appy, cholecystitis, CVA, Diverticulitis, Homicidal, Suicidal, threat to staff... and all critical care pts) @ -Yes this could lead to hypoxia and endorgan dysfunction (Wilmar Skaggs) - Lab Data Lab Results 10/13/23 10/13/23 10/13/23 Range/Units 03:49 03:49 03:49 WBC 10.8 H (3.8-10.6) k/uL RBC 4.43 (4.30-5.90) m/uL Hgb 11.8 L (13.0-17.5) gm/dL Hct 36.2 L (39.0-53.0) % MCV 81.6 (80.0-100.0) fL MCH 26.7 (25.0-35.0) pg MCHC 32.7 (31.0-37.0) g/dL RDW 14.5 (11.5-15.5) % Plt Count 442 (150-450) k/uL MPV 7.8 Neutrophils % 82 % Lymphocytes % 11 % Monocytes % 5 % Eosinophils % 2 % Basophils % 0 % Neutrophils # 8.8 H (1.3-7.7) k/uL Lymphocytes # 1.1 (1.0-4.8) k/uL Monocytes # 0.5 (0-1.0) k/uL Eosinophils # 0.2 (0-0.7) k/uL Basophils # 0.0 (0-0.2) k/uL PT 11.7 (10.0-12.5) sec INR 1.1 (<1.2) APTT 25.1 (22.0-30.0) sec D-Dimer 3.63 H (<0.60) mg/L FEU Sodium 139 (137-145) mmol/L Potassium 4.0 (3.5-5.1) mmol/L Chloride 106 (98-107) mmol/L Carbon Dioxide 23 (22-30) mmol/L Anion Gap 10 mmol/L BUN 12 (9-20) mg/dL Creatinine 0.68 (0.66-1.25) mg/dL Est GFR (CKD-EPI)AfAm >90 (>60 ml/min/1.73 sqM) Est GFR (CKD-EPI)NonAf >90 (>60 ml/min/1.73 sqM) Glucose 151 H (74-99) mg/dL Plasma Lactic Acid Jose Luis (0.7-2.0) mmol/L Calcium 9.6 (8.4-10.2) mg/dL Total Bilirubin 0.7 (0.2-1.3) mg/dL AST 29 (17-59) U/L ALT 27 (4-49) U/L Alkaline Phosphatase 75 (38-126) U/L Troponin I (0.000-0.034) ng/mL NT-Pro-B Natriuret Pep 165 pg/mL Total Protein 7.0 (6.3-8.2) g/dL Albumin 3.9 (3.5-5.0) g/dL Influenza Type A (PCR) (Not Detectd) Influenza Type B (PCR) (Not Detectd) RSV (PCR) (Not Detectd) SARS-CoV-2 (PCR) (Not Detectd) 10/13/23 10/13/23 10/13/23 Range/Units 03:49 03:49 04:16 WBC (3.8-10.6) k/uL RBC (4.30-5.90) m/uL Hgb (13.0-17.5) gm/dL Hct (39.0-53.0) % MCV (80.0-100.0) fL MCH (25.0-35.0) pg MCHC (31.0-37.0) g/dL RDW (11.5-15.5) % Plt Count (150-450) k/uL MPV Neutrophils % % Lymphocytes % % Monocytes % % Eosinophils % % Basophils % % Neutrophils # (1.3-7.7) k/uL Lymphocytes # (1.0-4.8) k/uL Monocytes # (0-1.0) k/uL Eosinophils # (0-0.7) k/uL Basophils # (0-0.2) k/uL PT (10.0-12.5) sec INR (<1.2) APTT (22.0-30.0) sec D-Dimer (<0.60) mg/L FEU Sodium (137-145) mmol/L Potassium (3.5-5.1) mmol/L Chloride (98-107) mmol/L Carbon Dioxide (22-30) mmol/L Anion Gap mmol/L BUN (9-20) mg/dL Creatinine (0.66-1.25) mg/dL Est GFR (CKD-EPI)AfAm (>60 ml/min/1.73 sqM) Est GFR (CKD-EPI)NonAf (>60 ml/min/1.73 sqM) Glucose (74-99) mg/dL Plasma Lactic Acid Jose Luis 0.9 (0.7-2.0) mmol/L Calcium (8.4-10.2) mg/dL Total Bilirubin (0.2-1.3) mg/dL AST (17-59) U/L ALT (4-49) U/L Alkaline Phosphatase (38-126) U/L Troponin I <0.012 (0.000-0.034) ng/mL NT-Pro-B Natriuret Pep pg/mL Total Protein (6.3-8.2) g/dL Albumin (3.5-5.0) g/dL Influenza Type A (PCR) Not Detected (Not Detectd) Influenza Type B (PCR) Not Detected (Not Detectd) RSV (PCR) Not Detected (Not Detectd) SARS-CoV-2 (PCR) Not Detected (Not Detectd) 10/13/23 Range/Units 07:01 WBC (3.8-10.6) k/uL RBC (4.30-5.90) m/uL Hgb (13.0-17.5) gm/dL Hct (39.0-53.0) % MCV (80.0-100.0) fL MCH (25.0-35.0) pg MCHC (31.0-37.0) g/dL RDW (11.5-15.5) % Plt Count (150-450) k/uL MPV Neutrophils % % Lymphocytes % % Monocytes % % Eosinophils % % Basophils % % Neutrophils # (1.3-7.7) k/uL Lymphocytes # (1.0-4.8) k/uL Monocytes # (0-1.0) k/uL Eosinophils # (0-0.7) k/uL Basophils # (0-0.2) k/uL PT (10.0-12.5) sec INR (<1.2) APTT (22.0-30.0) sec D-Dimer (<0.60) mg/L FEU Sodium (137-145) mmol/L Potassium (3.5-5.1) mmol/L Chloride (98-107) mmol/L Carbon Dioxide (22-30) mmol/L Anion Gap mmol/L BUN (9-20) mg/dL Creatinine (0.66-1.25) mg/dL Est GFR (CKD-EPI)AfAm (>60 ml/min/1.73 sqM) Est GFR (CKD-EPI)NonAf (>60 ml/min/1.73 sqM) Glucose (74-99) mg/dL Plasma Lactic Acid Jose Luis (0.7-2.0) mmol/L Calcium (8.4-10.2) mg/dL Total Bilirubin (0.2-1.3) mg/dL AST (17-59) U/L ALT (4-49) U/L Alkaline Phosphatase (38-126) U/L Troponin I <0.012 (0.000-0.034) ng/mL NT-Pro-B Natriuret Pep pg/mL Total Protein (6.3-8.2) g/dL Albumin (3.5-5.0) g/dL Influenza Type A (PCR) (Not Detectd) Influenza Type B (PCR) (Not Detectd) RSV (PCR) (Not Detectd) SARS-CoV-2 (PCR) (Not Detectd) Critical Care Time Critical Care Time: Yes Total Critical Care Time: 35 <Wilmar Skaggs - Last Filed: 10/13/23 07:56> Disposition <Rashmi Hernandez - Last Filed: 10/13/23 07:31> Time of Disposition: 07:56 <Wilmar Skaggs - Last Filed: 10/13/23 07:56> Clinical Impression: Pulmonary embolism Disposition: ADMITTED IP TO THIS HOSP Referrals: Kiki Montes MD [Primary Care Provider] - 1-2 days
[2023-10-13] MEDS: MORPHINE SULFATE 4 MG/ML SYRINGE IVP STA (06:57)
[2023-10-13] MEDS: methylPREDNISolone SOD SUCCI 125 MG/2 ML VIAL IV STA (07:00)
--- NOTE | 2023-10-13 07:48 | CT ---
CTA CHEST EXAMINATION TYPE: CT chest angio for PE DATE OF EXAM: 10/13/2023 INDICATION: Chest pain shortness of breath. States that he has also been running a fever. Cough and c ongestion CT DLP: 926.8 mGycm, Automated exposure control for dose reduction was used. CONTRAST: Patient injected with 85 mL of Isovue 370. COMPARISON: 06/01/2023 TECHNIQUE: CT of the chest is performed on a spiral scan at 2 mm thick sections. Study is performed with intravenous contrast timed for evaluation for pulmonary embolism. This will limit additional po rtions of the evaluation. 3-D MIP images reconstructed by the technologist are reviewed on the compu ter in the coronal and sagittal planes. FINDINGS: Timing for pulmonary embolism is suboptimal. Greater contrast within the aorta within the pulmonary a rteries. However, there appears to be well-demonstrated filling defect within a left upper lobe pulmo nary artery, example image 501 image 42. Left lower lobe pulmonary embolism is present. Right lower l obe pulmonary emboli are suspected. Large central pulmonary embolism is not clearly evident. Report w as called to the emergency room physician by Dr. Griffin following interpretation. No mediastinal or hilar adenopathy enlarged by CT criteria is evident. The ascending aorta diameter at the level of the main pulmonary artery is 3.1 cm. The main pulmonary artery diameter at the bifurcation is 3.0 cm. There is a small left pleural effusion. Adjacent compressive atelectasis in bilateral lung bases. Gustavo e increased density is adjacent to the lingular pleural margin could be some underlying atelectasis. Some dural thickening along the posterior left lung may be present. Limited CT sections were through the upper abdomen. Upper abdomen appears unremarkable. IMPRESSION: 1. Small bilateral pulmonary emboli are present. Examination is suboptimal and the extent may be unde restimated. 2. Small left pleural effusion. Dependent bibasilar atelectasis is present.
[2023-10-13] MEDS: HEPARIN SODIUM 1,000 UN/ML (10ML VL) IV ONE (08:02)
[2023-10-13] MEDS: HEPARIN SOD,PORK IN 0.45% NACL 25,000 UNIT in 0.45% NACL 1 250ML.BAG IV SCH (08:03)
[2023-10-13] MEDS: IPRATROPIUM-ALBUTEROL 3 ML NEB INHALATION STA (08:08)
[2023-10-13] MEDS: cefTRIAXone IN SWFI 1,000 MG/10 ML SYRINGE IVP STA (08:15)
[2023-10-13] MEDS: AZITHROMYCIN 500 MG TAB PO STA (08:15)
[2023-10-13] MEDS: KETOROLAC 15 MG/ML 1 ML VIAL IVP STA (08:22)
[2023-10-13] MEDS: SODIUM CHLORIDE 0.9% 1,000 ML IV ONE (08:22)
--- NOTE | 2023-10-13 09:08 | US ---
EXAMINATION TYPE: US venous doppler duplex LE LT DATE OF EXAM: 10/13/2023 7:38 AM COMPARISON: NONE CLINICAL INDICATION: Male, 38 years old with history of left leg swelling; Left leg swelling, chest p ain, PE, patient on blood thinners SIDE PERFORMED: Left TECHNIQUE: The lower extremity deep venous system is examined utilizing real time linear array sonog cherelle with graded compression, doppler sonography and color-flow sonography. VESSELS IMAGED: Common Femoral Vein Deep Femoral Vein Greater Saphenous Vein * Femoral Vein Popliteal Vein Small Saphenous Vein * Proximal Calf Veins (* superficial vessels) Left Leg: Appears negative for DVT IMPRESSION: 1. Left lower extremity ultrasound negative for deep venous thrombosis.
[2023-10-13] MEDS: METOPROLOL SUCCINATE (ER) 100 MG TAB.ER.24H PO SCH (11:20)
--- NOTE | 2023-10-13 11:58 | P.HPIM ---
History of Present Illness H&P Date: 10/13/23 Chief Complaint: shortness of breath History of Present Illness: Patient is a 30-year-old male with a past medical history of hypertension here for shortness of breath with chest pain and heart palpitations. Patient says he has been up since 2 AM this morning and tried to sleep this morning, but noticed shortness of breath and said he could not breathe when he was laying down. He stated that chest pain and palpitations started shortly after. He states that he had a low-grade fever this morning as well. He said he has been hospital 5 times previously for suspected blood clots. Has previously been put on heparin before for blood clots. He admits to calf tenderness. Denies any nausea vomiting, headache, chills, changes in vision. Vital signs blood pressure 141/81, pulse 113, RR 18, temp 99.8, SaO2 95 on room air. D-dimer 3.63, BNP 165, troponin <0.012, lactic 0.9, glucose 151, WBC 10.8, Hgb 11.8. Chest CTA displayed small bilateral pulmonary embolism with left-sided small pleural effusion. Chest x-ray on independent interpretation displayed pleural small pleural effusion on the left side and pulmonary vascular markings. EKG on independent indication showed sinus tachycardia with no ischemic changes. Vascular surgery consulted. To be admitted for further evaluation. Pertinent positives and negatives as discussed above, a complete review of systems was performed and all other systems are negative. Vitals: Signs Reviewed Physical Exam: General: nontoxic, no distress, appears at stated age Derm: warm, dry, intact Head: atraumatic, normocephalic, symmetric Eyes: EOMI, no lid lag, anicteric sclera Mouth: no lip lesion, mucus membranes moist Cardiovascular: S1 S2 reg, no murmur, rubs, or gallops Lungs: CTA bilateral, no rhonchi, no rales, no accessory muscle use Abdominal: soft, non-tender to palpataion, no appreciable organomegaly Extremities: no gross muscle atrophy, no edema, no contractures, bilateral edema more pronounced on left side 2+, bilateral redness lower extremity more pronounced on the left, positive calf tenderness on the left side Neuro: Alert, Oriented, CNII-XII grossly intact, gait normal Psych: well appearing, appropriate affect Assessment and Plan: Small bilateral pulmonary embolism, suspected DVT Sinus tachycardia, EKG negative for ischemic changes Continue on heparin IV 250 MLS at 22.453 mls/hr Continue normal saline thousand MLS at 75 mls/hr IV Venous Doppler pending Will trend troponins Echocardiogram pending Will trend coags Consult vascular surgery Hypertension Holding home meds until reconciled Will monitor blood pressure Normocytic anemia - will monitor CBC Obesity Education on weight control F: normal saline at 75 E: replete as needed N: regular diet A: fall precautions DVT ppx: Heparin IV 250 mls @ 22 Code status: Unknown Anticipated discharge place: Pending clinical course Anticipated discharge time: Pending clinical course I have seen and evaluated the patient today. Discussed with the resident and agree with the residents subjective and objective as documented in the resident's note. The assessment and plan was discussed and outlined as below. 38 year old M with PMH of HTN presents to the ED for chest pain and SOB. In the ED he underwent extensive evaluation. BP 120/68, HR 113, T 98.7 F, RR 20, 96% on RA. CBC, Coag panel, CMP significant for WBC 10.8, Hg 11.8, Hct 36.2, glu 151. D-DImer 3.63. Troponin < 0.012 x 2. BNP 165. COVID/RSV/Flu negative. CTA chest + for PE. Venous doppler negative for DVT. EKG sinus tachycardia with RBBB. Admitted for management of PE. Bilateral pulmonary embolus: Start high intensity heparin drip. Likely transition to Eliquis tomorrow. No right heart strain seen on CTA chest. Troponins negative. LLE Venous duplex negative for DVT. Echocardiogram ordered. Telemetry monitoring. Will likely need outpatient Hematology referral for hypercoaguable workup. Vascular surgery consulted. SIRS: Likely reactive. No signs of infection. Monitor fever profile. Normocytic anemia: No signs of active bleed. Borderline low. Follow up with PCP to further workup. Hypertension: Start Metoprolol 100 mg PO QD. We will hold Amlodipine, HCTZ, Hydralazine for now since he is normotensive. Past Medical History Past Medical History: Hypertension Additional Past Medical History / Comment(s): Pt states as a child he was getting bruising and had a work up that showed low platlets-has never happened again. History of Any Multi-Drug Resistant Organisms: None Reported Past Surgical History: No Surgical Hx Reported Past Anesthesia/Blood Transfusion Reactions: Unable to Obtain Additional Past Anesthesia/Blood Transfusion Reaction / Comment(s): Pt has never had surgery. Past Psychological History: No Psychological Hx Reported Smoking Status: Former smoker Past Alcohol Use History: None Reported Past Drug Use History: None Reported - Past Family History Father Family Medical History: CVA/TIA, Hypertension Additional Family Medical History / Comment(s): Father of a CVA at the age of 58yrs. Mother Family Medical History: No Reported History Additional Family Medical History / Comment(s): Mother is healthy Medications and Allergies Home Medications Medication Instructions Recorded Confirmed Type hydroCHLOROthiazide [Hydrodiuril] 25 mg PO DAILY #30 tab 05/11/18 10/13/23 Rx Metoprolol Succinate [Toprol XL] 100 mg PO DAILY 09/16/19 10/13/23 History Potassium Chloride ER [K-Dur 10] 10 meq PO DAILY 09/16/19 10/13/23 History amLODIPine [Norvasc] 10 mg PO DAILY 09/16/19 10/13/23 History hydrALAZINE HCL [Apresoline] 50 mg PO TID 09/16/19 10/13/23 History Cholecalciferol [Vitamin D3 (125 125 mcg PO DAILY 10/13/23 10/13/23 History Mcg = 5000 Iu)] metHOTREXate sodium [Methotrexate] 12.5 mg PO FR 10/13/23 10/13/23 History Allergies Allergy/AdvReac Type Severity Reaction Status Date / Time HERMILA Inhibitors Allergy Swelling Verified 10/13/23 08:40 benazepril [From Lotrel] Allergy Swelling Verified 10/13/23 08:40 Physical Exam Vitals: Vital Signs Temp Pulse Resp BP Pulse Ox 10/13/23 08:21 113 H 10/13/23 08:08 117 H 18 10/13/23 07:01 99.8 F H 10/13/23 06:37 110 H 18 141/81 95 10/13/23 05:20 104 H 18 123/81 96 10/13/23 04:53 96 22 141/89 96 10/13/23 04:25 26 H 10/13/23 03:33 98.7 F 113 H 20 120/68 96 Intake and Output 10/12/23 10/13/23 10/13/23 22:59 06:59 14:59 Other: Weight 124.738 kg Results CBC & Chem 7: 10/13/23 03:49 10/13/23 03:49 Labs: Abnormal Lab Results - Last 24 Hours (Table) 10/13/23 10/13/23 10/13/23 Range/Units 03:49 03:49 03:49 WBC 10.8 H (3.8-10.6) k/uL Hgb 11.8 L (13.0-17.5) gm/dL Hct 36.2 L (39.0-53.0) % Neutrophils # 8.8 H (1.3-7.7) k/uL D-Dimer 3.63 H (<0.60) mg/L FEU Glucose 151 H (74-99) mg/dL
--- NOTE | 2023-10-13 13:04 | XR ---
EXAMINATION TYPE: XR chest 2V DATE OF EXAM: 10/13/2023 COMPARISON: 06/05/2023 INDICATION: Difficulty breathing TECHNIQUE: Single frontal view of the chest is obtained. FINDINGS: The heart size is normal. The pulmonary vasculature is normal. The lungs are clear. There is a mild infiltrate at the left base. Correlate for atelectasis or pneumonia. IMPRESSION: 1. Left basilar atelectasis or pneumonia. Follow-up can be performed.
[2023-10-13] MEDS: MORPHINE SULFATE 4 MG/ML SYRINGE IVP PRN (15:38)
[2023-10-13] MEDS: hydrALAZINE HCL 50 MG TAB PO SCH (17:19)
--- NOTE | 2023-10-13 18:56 | CA ---
Transthoracic Echo Report Name: Albin Wild Age: 38 Gender: M : 1985 Exam Date: 10/13/2023 09:01 Exam Location: [facility] Ht (in): 74 Wt (lb): 275 Ordering Physician: Wilmar Skaggs MD Attending/Referring Phys: Assistant Professor Of Theater Theresa Longo RDCS Procedure CPT: Indications: Pulmonary Embolism Cardiac Hx: Technical Quality: Fair Contrast 1: Definity Total Dose (mL): 2 Contrast 2: Total Dose (mL): MEASUREMENTS (Male / Female) Normal Values 2D ECHO LV Diastolic Diameter PLAX 5.2 cm 4.2 - 5.9 / 3.9 - 5.3 cm LV Systolic Diameter PLAX 2.8 cm IVS Diastolic Thickness 1.4 cm 0.6 - 1.0 / 0.6 - 0.9 cm LVPW Diastolic Thickness 1.6 cm 0.6 - 1.0 / 0.6 - 0.9 cm LV Relative Wall Thickness 0.6 RV Internal Dim ED PLAX 3.1 cm LA Systolic Diameter LX 4.1 cm 3.0 - 4.0 / 2.7 - 3.8 cm M-MODE Aortic Root Diameter MM 3.1 cm LA Systolic Diameter MM 4.3 cm LA Ao Ratio MM 1.4 AV Cusp Separation MM 2.2 cm DOPPLER TR Peak Velocity 212.3 cm/s TR Peak Gradient 18.0 mmHg Right Atrial Pressure 10.0 mmHg Pulmonary Artery Systolic Pressu 28.0 mmHg Right Ventricular Systolic Press 28.0 mmHg FINDINGS Left Ventricle Left ventricular ejection fraction is estimated at 55-60%. Moderately increased septal wall thickness. No obvious regional wall motion abnormalities. Left ventricular cavity size normal. Right Ventricle Normal right ventricular size and function. Right ventricular systolic pressure within normal limits. Right Atrium Left Atrium Mitral Valve Aortic Valve Tricuspid Valve Pulmonic Valve Pericardium Small pericardial effusion. Aorta CONCLUSIONS Normal LV systolic function Normal right ventricular size and function No pulmonary hypertension Previewed by: Dr. Isma Stahl MD (Electronically Signed) Final Date: 13 October 2023 18:55
[2023-10-14] MEDS: hydroCHLOROthiazide 25 MG TAB PO SCH (09:22)
[2023-10-14] MEDS: amLODIPine 10 MG TAB PO SCH (09:22)
--- NOTE | 2023-10-14 09:45 | P.CRDCN ---
History of Present Illness History of present illness: HISTORY OF PRESENT ILLNESS: This is a 38-year-old male with a past medical history significant for former nicotine dependence, hypertension and obesity. Patient used to follow in the office with Dr. Adams but has not been seen since 2019. We have been asked to see the patient in consultation for pulmonary embolism. Patient examined at the bedside. Patient presented to the hospital for chief complaint of chest pain and shortness of breath for the last 2 to 3 days. He states the pain would get worse when he would lay flat in bed. He also states the pain was worse with deep inspiration. He states he is been having a hard time taking a deep breath the past couple days due to the shortness of breath. Patient was found to have pulmonary embolism and was started on IV heparin. Patient's vital signs are stable. Patient denies any history of CAD. He denies a family history of CAD. He does state his dad has a history of hypertension. He is a former cigarette smoker and quit smoking 6 years ago. He reports occasional alcohol use. He denies any drug use including marijuana. DIAGNOSTICS: - EKG reveals sinus mechanism with right bundle branch block. Unchanged from prior EKGs. No signs of acute ischemia - Chest xray left basilar atelectasis or pneumonia - Chest CTA: Small bilateral pulmonary emboli. Small left pleural effusion. - Venous Doppler: Left leg negative for DVT - Laboratory data: WBC 10.8. Hemoglobin 11.8. Platelet count 442. D-dimer 3.63. Sodium 139. Potassium 4.0. BUN 12. Creatinine 0.68. Troponin negative x 3. proBNP 165. - Current home cardiac medications include hydralazine 50 mg 3 times a day, hydrochlorothiazide 25 mg daily, amlodipine 10 mg daily, metoprolol succinate 100 mg daily. - Echocardiogram obtained this admission reveals ejection fraction 55 to 60% with small pericardial effusion REVIEW OF SYSTEMS: At the time of my exam: CONSTITUTIONAL: Denies fever or chills. HEENT: Denies blurred vision, vision changes, or eye pain. Denies hemoptysis CARDIOVASCULAR: Denies chest pain. Denies orthopnea. Denies PND. Denies pal pitations RESPIRATORY: Denies shortness of breath. GASTROINTESTINAL: Denies abdominal pain. Denies nausea or vomiting. HEMATOLOGIC: Denies bleeding disorders. GENITOURINARY: Denies any blood in urine. SKIN: Denies pruitis. Denies rash. PHYSICAL EXAM: VITAL SIGNS: Reviewed. GENERAL: Well-developed in no acute distress. HEENT: Head is normocephalic. Pupils are equal, round. Sclerae anicteric. Mucous membranes of the mouth are moist. Neck supple. No JVD or thyromegaly LUNGS: Respirations even and unlabored. Lungs essentially clear to auscultation bilaterally. HEART: Regular rate and rhythm. S1 and S2 heard. ABDOMEN: Soft. Nondistended. Nontender. EXTREMITIES: Normal range of motion. No clubbing or cyanosis. Peripheral pulses intact. No lower extremity edema NEUROLOGIC: Awake and alert. Oriented x 3. ASSESSMENT: Shortness of breath Bilateral small pulmonary emboli Chest pain, atypical, likely secondary to pulmonary emboli, acute coronary syndrome ruled out Hypertension Obesity: BMI 35.6 Former nicotine dependence, patient quit smoking 6 years ago Known right bundle branch block PLAN: An acute coronary event has been ruled out 2D echo obtained and reviewed Continue IV heparin. Transition to oral anticoagulation per primary medicine/pulmonary medicine. Continue home cardiac medications Vascular surgery has been consulted. However patient does not have any evidence of right heart strain and does not require EKOS procedure. Recommend outpatient hypercoagulable workup as PE seems to be unprovoked Further recommendations pending patient course Nurse practitioner note has been reviewed by physician. Signing provider agrees with the documented findings, assessment, and plan of care documented by EASEMENT MAN as a scribe. Past Medical History Past Medical History: Hypertension Additional Past Medical History / Comment(s): Pt states as a child he was getting bruising and had a work up that showed low platlets-has never happened again. History of Any Multi-Drug Resistant Organisms: None Reported Past Surgical History: No Surgical Hx Reported Past Anesthesia/Blood Transfusion Reactions: Unable to Obtain Additional Past Anesthesia/Blood Transfusion Reaction / Comment(s): Pt has never had surgery. Past Psychological History: No Psychological Hx Reported Additional Psychological History / Comment(s): Pt resides with his spouse. 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 Smoking Status: Former smoker Past Alcohol Use History: None Reported Additional Past Alcohol Use History / Comment(s): Pt started smoking in 1993 and is a ppd smoker. Past Drug Use History: None Reported - Past Family History Father History Unknown: Yes Family Medical History: CVA/TIA, Hypertension Additional Family Medical History / Comment(s): Father of a CVA at the age of 58yrs. Throat Cancer Mother History Unknown: Yes Family Medical History: No Reported History Additional Family Medical History / Comment(s): Mother is healthy Medications and Allergies Home Medications Medication Instructions Recorded Confirmed Type hydroCHLOROthiazide [Hydrodiuril] 25 mg PO DAILY #30 tab 05/11/18 10/13/23 Rx Metoprolol Succinate [Toprol XL] 100 mg PO DAILY 09/16/19 10/13/23 History Potassium Chloride ER [K-Dur 10] 10 meq PO DAILY 09/16/19 10/13/23 History amLODIPine [Norvasc] 10 mg PO DAILY 09/16/19 10/13/23 History hydrALAZINE HCL [Apresoline] 50 mg PO TID 09/16/19 10/13/23 History Cholecalciferol [Vitamin D3 (125 125 mcg PO DAILY 10/13/23 10/13/23 History Mcg = 5000 Iu)] metHOTREXate sodium [Methotrexate] 12.5 mg PO FR 10/13/23 10/13/23 History Allergies Allergy/AdvReac Type Severity Reaction Status Date / Time HERMILA Inhibitors Allergy Swelling Verified 10/13/23 08:40 benazepril [From Lotrel] Allergy Swelling Verified 10/13/23 08:40 Physical Exam Vitals: Vital Signs Temp Pulse Pulse Resp BP BP Pulse Ox 10/14/23 07:34 98.5 F 95 18 128/82 96 10/14/23 04:00 98.0 F 98 18 115/73 95 10/14/23 02:00 18 10/14/23 00:00 99.2 F 100 18 106/66 98 10/13/23 20:15 99.6 F 105 H 17 129/69 96 10/13/23 18:22 99.4 F 92 17 118/80 97 10/13/23 15:06 106 H 17 120/79 96 10/13/23 14:23 106 H 17 10/13/23 14:22 99.4 F 92 17 118/80 97 10/13/23 11:00 99.3 F 105 H 18 127/83 94 L Intake and Output 10/13/23 10/14/23 10/14/23 22:59 06:59 14:59 Intake Total 644.738 242.867 118 Balance 644.738 242.867 118 Intake: Intake, IV Titration 244.738 242.867 Amount Heparin Sod,Pork in 0.45% 244.738 242.867 NaCl 25,000 unit In 0.45 % NaCl 1 250ml.bag @ 18 UNITS/KG/HR 22.453 mls/hr IV .Q11H9M [facility] Rx#: [id number] Oral 400 118 Other: Voiding Method Toilet Toilet Toilet # Voids 2 Weight 124.738 kg 125.9 kg Results 10/13/23 03:49 10/13/23 03:49 Cardiac Enzymes 10/13/23 10/13/23 Range/Units 14:57 19:13 Troponin I <0.012 <0.012 (0.000-0.034) ng/mL Coagulation 10/13/23 10/14/23 Range/Units 14:54 06:15 APTT 59.3 H 45.4 H (22.0-30.0) sec Current Medications Generic Name Dose Route Start Last Admin Trade Name Freq PRN Reason Stop Dose Admin Acetaminophen 650 mg 10/13/23 15:28 Acetaminophen Tab 325 Mg Tab PO Q6HR PRN Pain or Fever > 100.5 Amlodipine Besylate 10 mg 10/14/23 09:00 10/14/23 09:22 Amlodipine 10 Mg Tab PO 10 mg DAILY JAMMIE Administration Benzonatate 200 mg 10/13/23 22:39 Benzonatate 100 Mg Cap PO TID PRN Cough Hydralazine HCl 50 mg 10/13/23 16:00 10/14/23 09:22 Hydralazine Hcl 50 Mg Tab PO 50 mg TID JAMMIE Administration Hydrochlorothiazide 25 mg 10/14/23 09:00 10/14/23 09:22 Hydrochlorothiazide 25 Mg Tab PO 25 mg DAILY JAMMIE Administration Heparin Sodium/Sodium Chloride 250 mls @ 22.453 mls/hr 10/13/23 08:00 10/14/23 05:46 25,000 unit/ Sodium Chloride IV 18 units/kg/hr .Q11H9M JAMMIE 22.453 mls/hr Administration Protocol 18 UNITS/KG/HR Metoprolol Succinate 100 mg 10/13/23 11:15 10/14/23 09:22 Metoprolol Succinate (Er) 100 Mg Tab.Er.24h PO 100 mg DAILY JAMMIE Administration Morphine Sulfate 4 mg 10/13/23 15:27 10/13/23 15:38 Morphine Sulfate 4 Mg/Ml Syringe IVP 4 mg Q4HR PRN Administration Pain Intake and Output 10/13/23 10/14/23 10/14/23 22:59 06:59 14:59 Intake Total 644.738 242.867 118 Balance 644.738 242.867 118 Intake: Intake, IV Titration 244.738 242.867 Amount Heparin Sod,Pork in 0.45% 244.738 242.867 NaCl 25,000 unit In 0.45 % NaCl 1 250ml.bag @ 18 UNITS/KG/HR 22.453 mls/hr IV .Q11H9M [facility] Rx#: [id number] Oral 400 118 Other: Voiding Method Toilet Toilet Toilet # Voids 2 Weight 124.738 kg 125.9 kg 10/13/23 03:49 10/13/23 03:49
[2023-10-14] MEDS: BENZONATATE 100 MG CAP PO PRN (11:27)
--- NOTE | 2023-10-14 13:22 | P.CNPUL ---
History of Present Illness Consult date: 10/14/23 Reason for consult: dyspnea, pulmonary embolism Chief complaint: Shortness of breath History of present illness: This is a 38-year-old white male with history of hypertension, obesity, tobacco dependence syndrome, since May, the patient had multiple ER visits with intermittent episodes of shortness of breath, dyspnea on exertion mostly, and previous workup has always been nondiagnostic including CT angiograms of the chest. This time the patient came in with 2 to 3 days history of shortness of breath and some chest pain when he lays flat, and the pain seems to be more pleuritic in nature with taking a deep breath. And has been noticing worsening shortness of breath for the last few days. CT angiogram of the chest was very suboptimal CT but nonetheless the radiologist felt that the patient had bilateral pulmonary emboli. I reviewed the CT angiogram of the chest myself, I believe the CT is definitely suboptimal CT. However considering the patient had relatively elevated D-dimer and he had symptoms that makes clinical index of suspicion for pulmonary embolism rather high, I believe the patient should be kept on heparin and transition to Eliquis. I reviewed the previous scans of the chest on this patient, and none of them was an adequate quality CT angiogram of the chest. All felt to be suboptimal. Patient denies any previous history of thromboembolic disease, and no family history of thromboembolic disease. Review of Systems REVIEW OF SYSTEMS: CONSTITUTIONAL: Negative. EYES: Negative. ENT: Negative. CARDIAC: Negative. PULMONARY: As noted in HPI GI: Negative. GENITOURINARY: Negative. MUSCULOSKELETAL: Negative. SKIN: Negative. NEUROPSYCH: Negative. ENDOCRINE: Negative. HEMATOLOGIC: Negative. Past Medical History Past Medical History: Hypertension Additional Past Medical History / Comment(s): Pt states as a child he was getting bruising and had a work up that showed low platlets-has never happened again. History of Any Multi-Drug Resistant Organisms: None Reported Past Surgical History: No Surgical Hx Reported Past Anesthesia/Blood Transfusion Reactions: Unable to Obtain Additional Past Anesthesia/Blood Transfusion Reaction / Comment(s): Pt has never had surgery. Past Psychological History: No Psychological Hx Reported Additional Psychological History / Comment(s): Pt resides with his spouse. 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 Smoking Status: Former smoker Past Alcohol Use History: None Reported Additional Past Alcohol Use History / Comment(s): Pt started smoking in 1993 and is a ppd smoker. Past Drug Use History: None Reported - Past Family History Father History Unknown: Yes Family Medical History: CVA/TIA, Hypertension Additional Family Medical History / Comment(s): Father of a CVA at the age of 58yrs. Throat Cancer Mother History Unknown: Yes Family Medical History: No Reported History Additional Family Medical History / Comment(s): Mother is healthy Medications and Allergies Home Medications Medication Instructions Recorded Confirmed Type hydroCHLOROthiazide [Hydrodiuril] 25 mg PO DAILY #30 tab 05/11/18 10/13/23 Rx Metoprolol Succinate [Toprol XL] 100 mg PO DAILY 09/16/19 10/13/23 History Potassium Chloride ER [K-Dur 10] 10 meq PO DAILY 09/16/19 10/13/23 History amLODIPine [Norvasc] 10 mg PO DAILY 09/16/19 10/13/23 History hydrALAZINE HCL [Apresoline] 50 mg PO TID 09/16/19 10/13/23 History Cholecalciferol [Vitamin D3 (125 125 mcg PO DAILY 10/13/23 10/13/23 History Mcg = 5000 Iu)] metHOTREXate sodium [Methotrexate] 12.5 mg PO FR 10/13/23 10/13/23 History Allergies Allergy/AdvReac Type Severity Reaction Status Date / Time HERMILA Inhibitors Allergy Swelling Verified 10/13/23 08:40 benazepril [From Lotrel] Allergy Swelling Verified 10/13/23 08:40 Physical Exam Vitals: Vital Signs Temp Pulse Resp BP Pulse Ox 10/14/23 11:22 98.8 F 99 18 118/74 97 10/14/23 07:34 98.5 F 95 18 128/82 96 10/14/23 04:00 98.0 F 98 18 115/73 95 10/14/23 02:00 18 10/14/23 00:00 99.2 F 100 18 106/66 98 10/13/23 20:15 99.6 F 105 H 17 129/69 96 10/13/23 18:22 99.4 F 92 17 118/80 97 10/13/23 15:06 106 H 17 120/79 96 10/13/23 14:23 106 H 17 10/13/23 14:22 99.4 F 92 17 118/80 97 Intake and Output 10/13/23 10/14/23 10/14/23 22:59 06:59 14:59 Intake Total 644.738 242.867 118 Balance 644.738 242.867 118 Intake: Intake, IV Titration 244.738 242.867 Amount Heparin Sod,Pork in 0.45% 244.738 242.867 NaCl 25,000 unit In 0.45 % NaCl 1 250ml.bag @ 18 UNITS/KG/HR 22.453 mls/hr IV .Q11H9M [facility] Rx#: [id number] Oral 400 118 Other: Voiding Method Toilet Toilet Toilet # Voids 2 Weight 124.738 kg 125.9 kg General: Reveals a 38-year-old white male pleasant in no distress, on room air Skin: Skin is warm and dry and no rashes or lesions are noted. Eye: Pupils are equal, round and reactive to light, extra-ocular movements are intact; there is normal conjunctiva bilaterally. Ears, nose, mouth and throat: There are moist mucous membranes and no oral lesions. Neck: The neck is supple, there is no tenderness or JVD. Cardiovascular: There is a regular rate and rhythm. No murmur, rub or gallop is appreciated. Respiratory: Diminished breath sound bilaterally no rhonchi no wheezes Gastrointestinal: Soft, non-distended, non-tender abdomen without masses or organomegaly noted. There is no rebound or guarding present. Bowel sounds are unremarkable. Back: There is no tenderness to palpation in the midline. There is no obvious deformity. Musculoskeletal: Normal ROM, no tenderness, There is no pedal edema. There is no calf tenderness or swelling. No cords were appreciated. Neurological: CN II-XII intact, Cranial nerves III through XII are intact. There are no obvious motor or sensory deficits. Coordination appears grossly intact. Speech is normal. Psychiatric: Cooperative, appropriate mood & affect, normal judgment. Results - Laboratory Findings CBC and BMP: 10/13/23 03:49 10/13/23 03:49 PT/INR, D-dimer PT 11.7 sec (10.0-12.5) 10/13/23 03:49 INR 1.1 (<1.2) 10/13/23 03:49 D-Dimer 3.63 mg/L FEU (<0.60) H 10/13/23 03:49 Abnormal lab findings: Abnormal Labs 10/13/23 10/13/23 10/13/23 03:49 03:49 03:49 WBC 10.8 H Hgb 11.8 L Hct 36.2 L Neutrophils # 8.8 H APTT D-Dimer 3.63 H Glucose 151 H 10/13/23 10/14/23 14:54 06:15 WBC Hgb Hct Neutrophils # APTT 59.3 H 45.4 H D-Dimer Glucose - Diagnostic Findings CT scan - chest: image reviewed (As noted in HPI) Assessment and Plan Assessment: Impression: Acute bilateral pulmonary embolism is strongly suspected based on his clinical symptoms based on his positive D-dimer and based on CT of the chest although the CT of the chest is definitely suboptimal. Chest pain secondary to pulmonary embolism Shortness of breath secondary to pulmonary embolism Benign essential hypertension Ex-smoker Obesity with BMI of 35.6 Recommendation: Continue present treatment plan including heparin and eventually transition to Eliquis. Reviewed the results of his echocardiogram and no evidence of any RV strain. Patient does not require any intervention at this point except medical therapy. Patient to be seen on outpatient basis, I would recommend repeat CT angiogram of the chest on outpatient basis but in the meantime strongly recommend initiation of treatment for thromboembolic disease. Will continue to follow Time with Patient: Greater than 30
--- NOTE | 2023-10-14 13:44 | P.PN ---
Subjective Progress Note Date: 10/14/23 38 year old M with PMH of hypertension presents to the ED for chest pain and shortness of breath. Recently admitted on 05/2023 for similar symptoms, underwent 2 CTA chest with suboptimal contrast bolusing, V/Q scan ordered but patient refused at that time and decided to be discharged home without further workup. He reports similar symptoms that has persisted since then. He did has a long 5 hour flight at that time with a layover. In the ED he underwent extensive evaluation. BP 120/68, HR 113, T 98.7F, RR 20, 96% on RA. CBC, Coag panel, CMP significant for WBC 10.8, Hg 11.8, Hct 36.2, glu 151. Troponin < 0.012 x 4. BNP 165. Lactic acid 0.9. D-Dimer 3.63. COVID/Flu/RSV negative. Initial EKG showed sinus tachycardia with RBBB. CXR left basilar atelectasis. CTA chest small bilateral PE with small left pleural effusion. He was started on a Heparin infusion and admitted for further workup and management. 10/13 Patient was seen and examined. Reports chest pain with deep inspiration and congestion. Repeat EKG was performed yesterday due to worsening chest pain. EKG seemed to show more prominent ST elevation with Troponins remaining negative x 2. Cardiology was consulted and notified by RN. He is maintained on Heparin infusion running at 18 units/kg/hr. Echo shows EF 55-60% with no regional wall motion abnormalities. Venous doppler negative for LLE DVT. APTT 45.4. Cardiology recommends continued IV heparin and Pulmonary consult. Pulmonary recommends continued treatment and repeat CTA chest outpatient. General: non toxic, no distress, appears at stated age Derm: warm, dry Head: atraumatic, normocephalic, symmetric Eyes: EOMI, no lid lag, anicteric sclera Mouth: no lip lesion, mucus membranes moist Cardiovascular: S1S2 tachy, no murmur Lungs: CTA bilateral, no rhonchi, no rales , no accessory muscle use Ext: no gross muscle atrophy, no edema, no contractures Neuro: no focal neuro deficits Psych: Alert, oriented, appropriate affect Based on my assessment of this patient, this patient meets a high complexity level of care. Bilateral pulmonary embolus: High intensity heparin drip. Transition to Eliquis at 9PM. No right heart strain seen on CTA chest. Troponins negative. LLE Venous duplex negative for DVT. Echocardiogram as above. Telemetry monitoring. Will need outpatient Hematology referral for hypercoaguable workup. Morphine 4 mg IV Q4H PRN for pain. Vascular surgery and Cardiology on board. SIRS: Likely reactive. No signs of infection. Monitor fever profile. Normocytic anemia: No signs of active bleed. Borderline low. Follow up with PCP to further workup. Hypertension: Metoprolol 100 mg PO QD. Amlodipine 10 mg PO QD. Hydralazine 50 mg PO TID. HCTZ on hold for now. CODE STATUS: FULL CODE DVT Prophylaxis: Heparin drip GI Prophylaxis: Designated medical POA if patient is not able to make medical decisions for themselves: Dispo: Plans to transition to PO [facility] at 9PM. Possible discharge in the AM. I have reviewed the following wardrobe consultant notes: Pulmonary, Cardiology I have reviewed the results of the following tests: Troponins x 2, Echo, Coag panel. I have ordered the following tests: Daily APTT monitoring. I have discussed the care of this patient with the following independent historian: I have independently interpreted the following test below: EKG. I have discussed the management of this patient with the following physician: This patient has a high risk of morbidity due to the following reasons: Patient requires IV heparin which requires intensive monitoring for toxicity (coag panel) and bleeding. Objective - Vital Signs Vital signs: Vital Signs Temp 98.5 F 10/14/23 07:34 Pulse 95 10/14/23 07:34 Resp 18 10/14/23 07:34 BP 128/82 10/14/23 07:34 Pulse Ox 96 10/14/23 07:34 FiO2 Intake & Output 10/13/23 10/14/23 10/14/23 18:59 06:59 18:59 Intake Total 244.738 642.867 Balance 244.738 642.867 Weight 124.738 kg 125.9 kg Intake: Intake, IV Titration 244.738 242.867 Amount Heparin Sod,Pork in 0.45% 244.738 242.867 NaCl 25,000 unit In 0.45 % NaCl 1 250ml.bag @ 18 UNITS/KG/HR 22.453 mls/hr IV .Q11H9M [facility] Rx#: [id number] Oral 400 Other: Voiding Method Toilet Toilet Toilet # Voids 1 2 - Labs CBC & Chem 7: 10/13/23 03:49 10/13/23 03:49 Labs: Abnormal Lab Results - Last 24 Hours (Table) 10/13/23 10/14/23 Range/Units 14:54 06:15 APTT 59.3 H 45.4 H (22.0-30.0) sec
[2023-10-14] MEDS: guaiFENesin 600 MG TABLET.ER PO SCH (15:37)
[2023-10-14] MEDS: ACETAMINOPHEN TAB 325 MG TAB PO PRN (17:44)
[2023-10-14] MEDS ORDERED: KETOROLAC 15 MG/ML 1 ML VIAL IVP PRN (19:11)
[2023-10-14] MEDS: APIXABAN 5 MG TAB PO SCH (21:21)
[2023-10-15 08:47] LABS: HCT 35.5 % (39.0-53.0); HGB 11.3 gm/dL (13.0-17.5); MCV 84.4 fL (80.0-100.0); Mean Platelet Volume 7.5; Platelet Count 451 k/uL (150-450); RDW 14.7 % (11.5-15.5); WBC 8.2 k/uL (3.8-10.6)
[2023-10-15 08:50] LABS: African American GFR (CKD) >90 (>60 ml/min/1.73 sqM); Anion Gap 6 mmol/L; Blood Urea Nitrogen 14 mg/dL (9-20); Carbon Dioxide 30 mmol/L (22-30); Chloride 100 mmol/L (98-107); Glucose 194 mg/dL (74-99); Non-African American GFR(CKD) >90 (>60 ml/min/1.73 sqM); Potassium 3.9 mmol/L (3.5-5.1); Sodium 136 mmol/L (137-145)
[2023-10-15 12:15] VITALS: BP 120/76; PULSE 100; RESP 16; TEMP 99
--- NOTE | 2023-10-15 12:31 | P.PN ---
Subjective Progress Note Date: 10/15/23 Principal diagnosis: Shortness of breath. This is a 38-year-old white male with history of hypertension, obesity, tobacco dependence syndrome, since May, the patient had multiple ER visits with intermittent episodes of shortness of breath, dyspnea on exertion mostly, and pr evious workup has always been nondiagnostic including CT angiograms of the chest. This time the patient came in with 2 to 3 days history of shortness of breath and some chest pain when he lays flat, and the pain seems to be more pleuritic in nature with taking a deep breath. And has been noticing worsening shortness of breath for the last few days. CT angiogram of the chest was very suboptimal CT but nonetheless the radiologist felt that the patient had bilateral pulmonary emboli. I reviewed the CT angiogram of the chest myself, I believe the CT is definitely suboptimal CT. However considering the patient had relatively elevated D-dimer and he had symptoms that makes clinical index of suspicion for pulmonary embolism rather high, I believe the patient should be kept on heparin and transition to Eliquis. I reviewed the previous scans of the chest on this patient, and none of them was an adequate quality CT angiogram of the chest. All felt to be suboptimal. Patient denies any previous history of thromboembolic disease, and no family history of thromboembolic disease. Progress note dated October 15, 2023. The patient is seen today room 376. The patient is on room air. Is not receiving any IV fluids. The patient has been transitioned to Eliquis. The patient was seen in consultation by my partner yesterday. Please see the note above. Current laboratory data includes a white count 8.2, hemoglobin 11.3, hematocrit 35.5, and a platelet count of 451,000. Sodium 136, potassium 3.9, chlorides 100, CO2 30, BUN 14, creatinine 0.81. Glucose is 194. Troponins were negative x 3. The patient is without symptomatology. He denies any chest pain, or shortness of breath. Objective - Vital Signs Vital signs: Vital Signs Temp 99 F 10/15/23 12:00 Pulse 100 10/15/23 12:00 Resp 16 10/15/23 12:00 BP 120/76 10/15/23 12:00 Pulse Ox 95 10/15/23 12:00 FiO2 Intake & Output 10/14/23 10/15/23 10/15/23 18:59 06:59 18:59 Intake Total 576.285 124.614 358 Balance 576.285 124.614 358 Weight 125.4 kg Intake: Intake, IV Titration 222.285 124.614 Amount Heparin Sod,Pork in 0.45% 222.285 124.614 NaCl 25,000 unit In 0.45 % NaCl 1 250ml.bag @ 18 UNITS/KG/HR 22.453 mls/hr IV .[id number] [facility] Rx#: [id number] Oral 354 [id number] Other: Voiding Method Toilet Toilet # Voids 9 2 # Bowel Movements 1 - Exam No acute distress, oriented 3. No respiratory distress. Room air saturation 98%. HEENT examination is grossly unremarkable. Mucous membranes are moist. No oral lesions. Neck supple. Full range of motion. No adenopathy thyromegaly or neck vein distention. Cardiovascular examination reveals regular rhythm rate. S1-S2 normal. No S3 or S4. No discernible murmur noted. Heart rate 94 bpm. Lungs reveal clear breath sounds. Breath sounds are equal bilaterally. No adventitious lung sounds including wheezes rhonchi or crackles. Abdomen soft bowel sounds are heard. No masses or tenderness. Extremities are intact. No cyanosis clubbing or edema. Skin is without rash or lesion. Neurologic examination is brief but nonfocal. - Labs CBC & Chem 7: 10/15/23 08:06 10/15/23 08:06 Labs: Abnormal Lab Results - Last 24 Hours (Table) 10/15/23 10/15/23 Range/Units 08:06 08:06 RBC 4.20 L (4.30-5.90) m/uL Hgb 11.3 L (13.0-17.5) gm/dL Hct 35.5 L (39.0-53.0) % Plt Count 451 H (150-450) k/uL Sodium 136 L (137-145) mmol/L Glucose 194 H (74-99) mg/dL Assessment and Plan Assessment: Acute bilateral pulmonary embolism. Chest pain, secondary to pulmonary embolism. Shortness of breath, secondary to pulmonary embolism. Benign essential hypertension. Previous history of tobacco use. Obesity. Plan: Plan dated October 15, 2023. The patient is doing relatively well. He is on room air. No IV fluids. He has been transition from heparin, to Eliquis. The patient will follow-up with my partner in the office. Labs, x-rays, medications are reviewed. The patient denies any chest pain or chest discomfort. He also denies any shortness of b reath, chest tightness, wheezing, phlegm production, etc. We will continue to follow, should he not be discharged. Time with Patient: Less than 30
--- NOTE | 2023-10-15 14:00 | P.DS ---
Providers Date of admission: 10/13/23 07:58 Discharge Diagnosis: Bilateral pulmonary embolus Normocytic anemia Hypertension Hospital Course: 38 year old M with PMH of hypertension presents to the ED for chest pain and shortness of breath. Recently admitted on 05/2023 for similar symptoms, underwent 2 CTA chest with suboptimal contrast bolusing, V/Q scan ordered but patient refused at that time and decided to be discharged home without further workup. He reports similar symptoms that has persisted since then. He did has a long 5 hour flight at that time with a layover. In the ED he underwent extensive evaluation. BP 120/68, HR 113, T 98.7F, RR 20, 96% on RA. CBC, Coag panel, CMP significant for WBC 10.8, Hg 11.8, Hct 36.2, glu 151. Troponin < 0.012 x 4. BNP 165. Lactic acid 0.9. D-Dimer 3.63. COVID/Flu/RSV negative. Initial EKG showed sinus tachycardia with RBBB. CXR left basilar atelectasis. CTA chest small bilateral PE with small left pleural effusion. He was started on a Heparin infusion and admitted for further workup and management. Cardiology and pulmonology followed. Reports chest pain with deep inspiration and congestion. Repeat EKG was performed (10/12) due to worsening chest pain. EKG seemed to show more prominent ST elevation with Troponins remaining negative x 2. Cardiology was consulted and notified by RN. He is maintained on Heparin infusion running at 18 units/kg/hr. Echo shows EF 55-60% with no regional wall motion abnormalities. Venous doppler negative for LLE DVT. APTT 45.4. Cardiology recommends continued IV heparin and Pulmonary consult. Pulmonary recommends continued treatment and repeat CTA chest outpatient. Patient will be sent home with anticoagulation. Patient will follow-up with pulmonology, hematology, PCP outpatient. He is to be discharged home. 10/15/2023: Patient seen and examined at bedside. No acute events overnight. Vital signs reviewed and stable. Physical Exam: General: non-toxic, no distress, appears appropriate age Derm: warm, dry Head: atruamatic, normocephalic, symmetric Eyes: EMOI, no lid lag Mouth: no lip lesion, mucus membranes moist Cardiovascular: S1S2 reg, no murmur Lungs: CTA bilateral, no rhonchi, no rales, no accessory muscle use Abdominal: soft, nontender to palpation, no guarding, no appreciable organomegaly Ext: no gross muscle atrophy, no edema, no contractures Neuro: CN II-XI grossly intact, no focal neuro deficits Psych: alert, oriented, appropriate affect A total of 20 minutes of time were spent preparing this complex discharge summary. Patient was discharge on 10/15/2023 at 2 PM Expected date of discharge: 10/15/23 Attending physician: Jaya Gavin MD Consults: 10/13/23 07:56 Consult Physician Urgent Consulting Provider: Gray Jimenez Consult Reason/Comments: Pulmonary embolism Do you want consulting provider notified?: Yes 10/13/23 15:20 Consult Physician Routine Consulting Provider: Isma Stahl Consult Reason/Comments: elevated ST. chest pain. Do you want consulting provider notified?: Yes 10/14/23 08:41 Consult Physician Routine Consulting Provider: Ina Rose Consult Reason/Comments: pulmonary embolism Do you want consulting provider notified?: Yes Primary care physician: [facility] Course: I have seen and evaluated the patient today. Discussed with the resident and agree with the residents subjective and objective as documented in the resident's note. The assessment and plan was discussed and outlined as below. Patient reports well controlled pain. He was switched to Eliquis yesterday. His fever is likely related to PE and atelectasis. Cardiology and Pulmonary has cleared the patient for discharge. Advised to continue Eliquis likely life long. Follow up with PCP within 1-2 days, Pulmonary within 1 week and Hematology within 1 week of discharge. Prescription for Eliquis and [place] PRN sent to the pharmacy. Discharge Diagnosis: Bilateral pulmonary embolus SIRS Normocytic anemia Hypertension This complex discharge took 35 minutes to complete. Patient Condition at Discharge: Stable Plan - Discharge Summary Discharge Rx Participant: Yes New Discharge Prescriptions: New HYDROcodone/APAP 5-325MG [[place] 5-325] 1 tab PO Q6HR PRN 3 Days #12 tab PRN Reason: Pain Apixaban [Eliquis Starter Pack (for VTE)] 5 - 10 mg PO DIRECTED 30 Days #1 each Continue hydroCHLOROthiazide [Hydrodiuril] 25 mg PO DAILY #30 tab hydrALAZINE HCL [Apresoline] 50 mg PO TID Potassium Chloride ER [K-Dur 10] 10 meq PO DAILY Metoprolol Succinate [Toprol XL] 100 mg PO DAILY amLODIPine [Norvasc] 10 mg PO DAILY Cholecalciferol [Vitamin D3 (125 Mcg = 5000 Iu)] 125 mcg PO DAILY metHOTREXate sodium [Methotrexate] 12.5 mg PO FR Discharge Medication List hydroCHLOROthiazide [Hydrodiuril] 25 mg PO DAILY #30 tab 05/11/18 [Rx] Metoprolol Succinate [Toprol XL] 100 mg PO DAILY 09/16/19 [History] Potassium Chloride ER [K-Dur 10] 10 meq PO DAILY 09/16/19 [History] amLODIPine [Norvasc] 10 mg PO DAILY 09/16/19 [History] hydrALAZINE HCL [Apresoline] 50 mg PO TID 09/16/19 [History] Cholecalciferol [Vitamin D3 (125 Mcg = 5000 Iu)] 125 mcg PO DAILY 10/13/23 [History] metHOTREXate sodium [Methotrexate] 12.5 mg PO FR 10/13/23 [History] Apixaban [Eliquis Starter Pack (for VTE)] 5 - 10 mg PO DIRECTED 30 Days #1 each 10/15/23 [Rx] HYDROcodone/APAP 5-325MG [[place] 5-325] 1 tab PO Q6HR PRN 3 Days #12 tab 10/15/23 [Rx] Follow up Appointment(s)/Referral(s): Ina Rose MD [STAFF PHYSICIAN] - 11/15/23 9:30 am Tim Montiel [STAFF PHYSICIAN] - 10/16/23 4:00 pm () Kiki Montes MD [Primary Care Provider] - 10/22/23 11:45 am Discharge Disposition: HOME SELF-CARE
--- NOTE | 2023-10-15 15:15 | P.PN ---
Subjective Progress Note Date: 10/15/23 HISTORY OF PRESENT ILLNESS: This is a 38-year-old male with a past medical history significant for former nicotine dependence, hypertension and obesity. Patient used to follow in the office with Dr. Adams but has not been seen since 2019. We have been asked to see the patient in consultation for pulmonary embolism. Patient examined at the bedside. Patient presented to the hospital for chief complaint of chest pain and shortness of breath for the last 2 to 3 days. He states the pain would get worse when he would lay flat in bed. He also states the pain was worse with deep inspiration. He states he is been having a hard time taking a deep breath the past couple days due to the shortness of breath. Patient was found to have pulmonary embolism and was started on IV heparin. Patient's vital signs are stable. Patient denies any history of CAD. He denies a family history of CAD. He does state his dad has a history of hypertension. He is a former cigarette smoker and quit smoking 6 years ago. He reports occasional alcohol use. He denies any drug use including marijuana. DIAGNOSTICS: - EKG reveals sinus mechanism with right bundle branch block. Unchanged from prior EKGs. No signs of acute ischemia - Chest xray left basilar atelectasis or pneumonia - Chest CTA: Small bilateral pulmonary emboli. Small left pleural effusion. - Venous Doppler: Left leg negative for DVT - Laboratory data: WBC 10.8. Hemoglobin 11.8. Platelet count 442. D-dimer 3.63. Sodium 139. Potassium 4.0. BUN 12. Creatinine 0.68. Troponin negative x 3. proBNP 165. - Current home cardiac medications include hydralazine 50 mg 3 times a day, hydrochlorothiazide 25 mg daily, amlodipine 10 mg daily, metoprolol succinate 100 mg daily. - Echocardiogram obtained this admission reveals ejection fraction 55 to 60% with small pericardial effusion 10/14 Patient denies having any chest pain no shortness of breath. He does have some chest pain in the lower area when he takes a deep breath. Blood pressure 120/76, heart rate 100, pulse ox 95% on room air. Patient has been started on Eliquis. PHYSICAL EXAM: VITAL SIGNS: Reviewed. GENERAL: Well-developed in no acute distress. HEENT: Head is normocephalic. Pupils are equal, round. Sclerae anicteric. Mucous membranes of the mouth are moist. Neck supple. No JVD or thyromegaly LUNGS: Respirations even and unlabored. Lungs essentially clear to auscultation bilaterally. HEART: Regular rate and rhythm. S1 and S2 heard. ABDOMEN: Soft. Nondistended. Nontender. EXTREMITIES: Normal range of motion. No clubbing or cyanosis. Peripheral pulses intact. No lower extremity edema NEUROLOGIC: Awake and alert. Oriented x 3. ASSESSMENT: Shortness of breath Bilateral small pulmonary emboli Chest pain, atypical, likely secondary to pulmonary emboli, acute coronary syndrome ruled out Hypertension Obesity: BMI 35.6 Former nicotine dependence, patient quit smoking 6 years ago Known right bundle branch block PLAN: An acute coronary event has been ruled out 2D echo obtained and reviewed Continue oral anticoagulation Continue home cardiac medications Vascular surgery has been consulted. However patient does not have any evidence of right heart strain and does not require EKOS procedure. Recommend outpatient hypercoagulable workup as PE seems to be unprovoked Patient is cleared for discharge from cardiology and may follow-up in the office with Dr. Emery Stahl in 1 to 2 weeks. Nurse practitioner note has been reviewed by physician. Signing provider agrees with the documented findings, assessment, and plan of care documented by MANAGER [employer]ASING as a scribe. Objective - Vital Signs Vital signs: Vital Signs Temp 98.2 F 10/15/23 08:00 Pulse 107 H 10/15/23 08:00 Resp 18 10/15/23 08:00 BP 143/81 10/15/23 08:00 Pulse Ox 98 10/15/23 08:00 FiO2 Intake & Output 10/14/23 10/15/23 10/15/23 18:59 06:59 18:59 Intake Total 576.285 124.614 358 Balance 576.285 124.614 358 Weight 125.4 kg Intake: Intake, IV Titration 222.285 124.614 Amount Heparin Sod,Pork in 0.45% 222.285 124.614 NaCl 25,000 unit In 0.45 % NaCl 1 250ml.bag @ 18 UNITS/KG/HR 22.453 mls/hr IV .Q11H9M [facility] Rx#: [id number] Oral 354 [id number] Other: Voiding Method Toilet Toilet # Voids 9 2 # Bowel Movements 1 - Labs CBC & Chem 7: 10/15/23 08:06 10/15/23 08:06 Labs: Abnormal Lab Results - Last 24 Hours (Table) 10/15/23 10/15/23 Range/Units 08:06 08:06 RBC 4.20 L (4.30-5.90) m/uL Hgb 11.3 L (13.0-17.5) gm/dL Hct 35.5 L (39.0-53.0) % Plt Count 451 H (150-450) k/uL Sodium 136 L (137-145) mmol/L Glucose 194 H (74-99) mg/dL
== END 2023-10-15 14:28 | disposition home or self-care (01) | DRG 176 ==
LOC: EC 03:31 → 3SCARD 07:58
PROVIDERS: ADMIT Student in an Organized Health Care Education/Training Program; ATTEND Student in an Organized Health Care Education/Training Program
DX: I26.99 Other pulmonary embolism without acute cor pulmonale (principal); J98.11 Atelectasis; R65.10 Systemic inflammatory response syndrome (SIRS) of non-infectious origin without acute organ dysfunction; I45.10 Unspecified right bundle-branch block; Z68.35 Body mass index [BMI] 35.0-35.9, adult; E66.9 Obesity, unspecified; I10 Essential (primary) hypertension; D64.9 Anemia, unspecified; F17.210 Nicotine dependence, cigarettes, uncomplicated; Z20.822 Contact with and (suspected) exposure to COVID-19; Z28.21 Immunization not carried out because of patient refusal
CPT/HCPCS: 36415; 71046; 71275; 80048; 80053; 83605; 83880; 84484; 85025; 85027; 85379; 85610; 85730; 87636; 93005; 93306; 94640; 96365; 96366; 96375; 99291

== ENCOUNTER → 2023-11-27 | Outpatient (CLI) | payer BC ==
--- NOTE | 2023-11-27 17:20 | US ---
EXAMINATION TYPE: US venous doppler duplex LE BI DATE OF EXAM: 11/27/2023 4:12 PM COMPARISON: Multiple, most recent 10/13/2023 CLINICAL INDICATION: Male, 38 years old with history of I80.10 PHLEBITIS AND THROMBOPHLEBITIS; No roz nges from last exam; Patient is on thinners SIDE PERFORMED: Bilateral TECHNIQUE: The lower extremity deep venous system is examined utilizing real time linear array sonog cherelle with graded compression, doppler sonography and color-flow sonography. VESSELS IMAGED: Common Femoral Vein Deep Femoral Vein Greater Saphenous Vein * Femoral Vein Popliteal Vein Small Saphenous Vein * Proximal Calf Veins (* superficial vessels) Right Leg: Negative for DVT Left Leg: Negative for DVT IMPRESSION: 1. Bilateral lower extremity ultrasound negative for deep venous thrombosis
== END | disposition home or self-care (01) ==
LOC: RADUSWWP 15:54
PROVIDERS: ATTEND Internal Medicine Hematology & Oncology
DX: I80.10 Phlebitis and thrombophlebitis of unspecified femoral vein
CPT/HCPCS: 93970

== ENCOUNTER → 2024-04-14 | Outpatient (CLI) | payer BC ==
--- NOTE | 2024-04-14 10:08 | XR ---
EXAMINATION TYPE: XR chest 2V DATE OF EXAM: 04/14/2024 9:54 AM COMPARISON: Chest radiographs from 10/13/2023 CLINICAL INDICATION: Male, 38 years old with history of R05.9 cough TECHNIQUE: XR chest 2V Frontal and lateral views of the chest. FINDINGS: Lungs/Pleura: There is no evidence of pleural effusion, focal consolidation, or pneumothorax. Pulmonary vascularity: Unremarkable. Heart/mediastinum: Cardiomediastinal silhouette is unremarkable. Musculoskeletal: No acute osseous pathology. IMPRESSION: No acute cardiopulmonary disease/process. [facility], , 04/14/2024 10:06 AM
== END | disposition home or self-care (01) ==
LOC: RADXRMAIN 09:42
PROVIDERS: ATTEND Family Medicine
DX: R05.9 Cough, unspecified (principal)
CPT/HCPCS: 71046